=== PATIENT | female | born 1960 | race Caucasian/White ===

== ENCOUNTER 2019-05-23 08:14 | Outpatient (CLI) | payer MEDICARE, SELFPAY | END 2019-05-23 08:15 | disposition home or self-care (01) | LOC: ONCMED 08:22 | PROVIDERS: Family Provider Family Medicine; PCP Family Medicine; Visit Provider Internal Medicine Medical Oncology | DX: Z45.2 Encounter for adjustment and management of vascular access device (principal) | CPT/HCPCS: 96523 ==

== ENCOUNTER 2019-06-20 08:12 | Outpatient (CLI) | payer MEDICARE, SELFPAY | END 2019-06-20 08:13 | disposition home or self-care (01) | LOC: ONCMED 08:13 | PROVIDERS: Family Provider Family Medicine; PCP Family Medicine; Visit Provider Nurse Practitioner | DX: Z45.2 Encounter for adjustment and management of vascular access device (principal) | CPT/HCPCS: 96523 ==

== ENCOUNTER 2019-07-18 09:22 | Outpatient (CLI) | payer MEDICARE, SELFPAY | END 2019-07-18 09:23 | disposition home or self-care (01) | LOC: ONCMED 09:22 | PROVIDERS: Family Provider Family Medicine; PCP Family Medicine; Visit Provider Internal Medicine Medical Oncology | DX: Z45.2 Encounter for adjustment and management of vascular access device (principal) | CPT/HCPCS: 96523 ==

== ENCOUNTER 2019-08-15 09:43 | Outpatient (CLI) | payer MEDICARE, SELFPAY | END 2019-08-15 09:44 | disposition home or self-care (01) | LOC: ONCMED 09:43 | PROVIDERS: Family Provider Family Medicine; PCP Family Medicine; Visit Provider Internal Medicine Medical Oncology | DX: Z45.2 Encounter for adjustment and management of vascular access device (principal) | CPT/HCPCS: 96523 ==

== ENCOUNTER 2019-09-12 09:27 | Outpatient (CLI) | payer MEDICARE, SELFPAY | END 2019-09-12 09:28 | disposition home or self-care (01) | LOC: ONCMED 09:27 | PROVIDERS: Family Provider Family Medicine; PCP Family Medicine; Visit Provider Nurse Practitioner | DX: Z45.2 Encounter for adjustment and management of vascular access device (principal); C21.8 Malignant neoplasm of overlapping sites of rectum, anus and anal canal; C77.4 Secondary and unspecified malignant neoplasm of inguinal and lower limb lymph nodes; G89.3 Neoplasm related pain (acute) (chronic); D70.1 Agranulocytosis secondary to cancer chemotherapy; D64.9 Anemia, unspecified; Z79.899 Other long term (current) drug therapy | CPT/HCPCS: 96523 ==

== ENCOUNTER 2019-10-10 08:28 | Outpatient (CLI) | payer MEDICARE, SELFPAY | END 2019-10-10 08:29 | disposition home or self-care (01) | LOC: ONCMED 08:35 | PROVIDERS: PCP Family Medicine; Visit Provider Internal Medicine Medical Oncology | DX: Z45.2 Encounter for adjustment and management of vascular access device (principal); C21.8 Malignant neoplasm of overlapping sites of rectum, anus and anal canal; C77.4 Secondary and unspecified malignant neoplasm of inguinal and lower limb lymph nodes; D64.9 Anemia, unspecified; D70.1 Agranulocytosis secondary to cancer chemotherapy; T45.1X5A Adverse effect of antineoplastic and immunosuppressive drugs, initial encounter; G89.3 Neoplasm related pain (acute) (chronic); Z79.899 Other long term (current) drug therapy | CPT/HCPCS: 96523 ==

== ENCOUNTER 2019-11-14 08:27 | Outpatient (CLI) | payer MEDICARE, SELFPAY ==
[2019-11-14 09:35] LABS: Alanine Aminotransferase 24 U/L (0-33); Albumin Level 3.8 g/dL (3.5-5.2); Alkaline Phosphatase 79 IU/L (35-105); Aspartate Amino Transferase 29 U/L (0-32); Blood Urea Nitrogen 15 mg/dL (8-23); Calcium 8.4 mg/dL (8.5-10.5); Carbon Dioxide 25 mmol/L (22-29); Chloride 103 mmol/L (98-107); Free T4 Free Thyroxine 1.09 ng/dL (0.82-1.77); Globulin 2.3 g/dL (1.3-4.6); Glomerular Filtration Rate 63.7 mL/min (90-130); Glucose 87 mg/dL (65-115); Osmolality Calculated 278 mOsm/kg (285-295); Sodium 136 mmol/L (136-145); Thyroid Stimulating Hormone 4.33 uIU/mL (0.27-4.20); Total Bilirubin 0.4 mg/dL (0.15-1.2); Total Protein 6.1 g/dL (6.6-8.7)
[2019-11-14 10:18] LABS: Basophils % 0.4 %; Eosinophils # 0.2 10^3/uL (0.0-0.8); Hematocrit 37.7 % (37.0-47.0); Hemoglobin 12.5 g/dL (11.5-15.3); Lymphocytes # 1.6 10^3/uL (0.8-4.8); Lymphocytes % 32.5 %; Mean Corpuscular HGB Conc 33.2 g/dL (30.0-36.0); Mean Corpuscular Hemoglobin 31.6 pg (28.0-34.0); Mean Corpuscular Volume 95.2 fL (81-99); Monocytes # 0.4 10^3/uL (0.2-0.9); Monocytes % 7.5 %; Neutrophils # 2.8 10^3/uL (1.8-7.7); Neutrophils % 56.4 %; Nucleated Red Blood Cells % 0 %; Platelet Count 148 10^3/cmm (130-400); Red Blood Count 3.96 10^6/uL (4.1-5.3); Red Cell Distribution Width 12.8 % (12.1-15.1)
== END 2019-11-14 08:28 | disposition home or self-care (01) ==
LOC: ONCMED 08:30
PROVIDERS: PCP Family Medicine; Visit Provider Internal Medicine Medical Oncology
DX: E03.8 Other specified hypothyroidism (principal); C80.1 Malignant (primary) neoplasm, unspecified
CPT/HCPCS: 36591; 80053; 84439; 84443; 85025

== ENCOUNTER 2019-12-19 08:21 | Outpatient (CLI) | payer MEDICARE, SELFPAY | END 2019-12-19 08:22 | disposition home or self-care (01) | LOC: ONCMED 08:27 | PROVIDERS: PCP Family Medicine; Visit Provider Nurse Practitioner | DX: Z45.2 Encounter for adjustment and management of vascular access device (principal) | CPT/HCPCS: 96523 ==

== ENCOUNTER 2020-01-16 09:07 | Outpatient (CLI) | payer MEDICARE, SELFPAY | END 2020-01-16 09:08 | disposition home or self-care (01) | LOC: ONCMED 09:09 | PROVIDERS: PCP Family Medicine; Visit Provider Nurse Practitioner | DX: Z45.2 Encounter for adjustment and management of vascular access device (principal) | CPT/HCPCS: 96523 ==

== ENCOUNTER 2020-02-24 08:27 | Outpatient (CLI) | payer MEDICARE, SELFPAY ==
[2020-02-24 08:54] LABS: Basophils % 0.6 %; Eosinophils # 0.1 10^3/uL (0.0-0.8); Eosinophils % 1.4 %; Hematocrit 36.9 % (37.0-47.0); Hemoglobin 12.5 g/dL (11.5-15.3); Lymphocytes # 1.6 10^3/uL (0.8-4.8); Lymphocytes % 23.8 %; Mean Corpuscular HGB Conc 33.9 g/dL (30.0-36.0); Mean Corpuscular Hemoglobin 31.1 pg (28.0-34.0); Mean Corpuscular Volume 91.8 fL (81-99); Mean Platelet Volume 9.5 fL (7.4-10.4); Monocytes # 0.5 10^3/uL (0.2-0.9); Monocytes % 7.1 %; Neutrophils % 66.8 %; Nucleated Red Blood Cells % 0 %; Platelet Count 231 10^3/cmm (130-400); Red Blood Count 4.02 10^6/uL (4.1-5.3); Red Cell Distribution Width 12.2 % (12.1-15.1); White Blood Count 6.6 10^3/uL (4.0-10.0)
[2020-02-24 09:39] LABS: Alanine Aminotransferase 20 U/L (0-33); Albumin Level 3.6 g/dL (3.5-5.2); Alkaline Phosphatase 79 IU/L (35-105); Anion Gap 12.8 (5-19); Aspartate Amino Transferase 19 U/L (0-32); Blood Urea Nitrogen 17 mg/dL (8-23); Calcium 8.5 mg/dL (8.5-10.5); Carbon Dioxide 24 mmol/L (22-29); Chloride 101 mmol/L (98-107); Glomerular Filtration Rate 72.9 mL/min (90-130); Glucose 118 mg/dL (65-115); Osmolality Calculated 281 mOsm/kg (285-295); Potassium 3.8 mmol/L (3.5-5.1); Sodium 134 mmol/L (136-145); Total Bilirubin 0.4 mg/dL (0.15-1.2); Total Protein 6.6 g/dL (6.6-8.7)
== END 2020-02-24 08:28 | disposition home or self-care (01) ==
LOC: ONCMED 08:29
PROVIDERS: PCP Family Medicine; Visit Provider Internal Medicine Medical Oncology
DX: C80.1 Malignant (primary) neoplasm, unspecified (principal); E03.8 Other specified hypothyroidism
CPT/HCPCS: 36591; 80053; 84443; 85025

== ENCOUNTER 2020-03-17 10:13 | Outpatient (CLI) | payer MEDICARE, SELFPAY ==
--- NOTE | 2020-03-17 10:22 | XR_ITS ---
WS: [id number] PROCEDURE: XR chest 2V* [id number] CLINICAL INFORMATION: continued cough COMPARISON: 019 FINDINGS: Right central venous catheter with tip in the distal SVC. Heart: Normal cardiac silhouette. Lungs: Lungs are clear. No consolidation or pleural fluid. Moderate to advanced chronic emphysematous changes. Bones: Osteopenia. Mild thoracic kyphosis. XR/XR chest 2V* [id number] IMPRESSION: 1. Moderate to advanced chronic emphysematous changes. No acute pulmonary infi ltrates.
== END 2020-03-17 10:14 | disposition home or self-care (01) ==
LOC: RADWPI 10:17
PROVIDERS: PCP Family Medicine; Visit Provider Family Medicine
DX: R05 Cough (principal)
CPT/HCPCS: 71046

== ENCOUNTER → 2020-03-25 09:28 | Outpatient (BNVA) | payer MEDICARE, SELFPAY | PROVIDERS: PCP Family Medicine; Visit Provider Family Medicine | DX: Z11.59 Encounter for screening for other viral diseases (principal); C80.1 Malignant (primary) neoplasm, unspecified | CPT/HCPCS: 87635 ==

== ENCOUNTER 2020-03-29 06:52 | Day surgery (SDC) | payer MEDICARE, SELFPAY ==
[2020-03-26 12:47] VITALS: BMI 25.2
[2020-03-29] VITALS (7 sets, daily range): BP systolic 113–146; BP diastolic 53–77; PULSE 60–68; RESP 16–18; TEMP 36.1–36.5; O2SAT 98–100
--- NOTE | 2020-03-29 07:23 | W.PM.OPSUD ---
Surgery/Procedure H&P Update DATE OF PROCEDURE: March 29, 2020 DATE H&P PERFORMED: 03/22/20 H&P UPDATE INFORMATION: I have reviewed H&P completed within last 30 days, I have examined patient prior to procedure and No changes to prior documentation PREOP DIAGNOSIS: powerport removal PLANNED PROCEDURE: Operation Date: 03/29/20 08:40 Proposed Procedures p Portacath Removal 51971 C80.1(Not Applicable) - Miguel Santacruz MD
[2020-03-29] MEDS: lidocaine 1% INJ 20 mL IM (09:05)
--- NOTE | 2020-03-29 09:18 | PM.OP ---
Operative Report Date of procedure: March 29, 2020 Pre-op Diagnosis: powerport removal Post-op diagnosis: same Procedure Done: Removal of PowerPort from the right internal jugular vein Pathology: none sent Surgeon: Miguel Santacruz Anesthesia: Local Condition: stable Disposition: same day Procedure: Patient was taken to the operating room and her right chest was prepped and draped in a sterile manner. 20 mL of 1% lidocaine with 0.5% Marcaine was infiltrated around the MediPort and catheter in the right internal jugular vein. Using a 15 blade the previous incision was opened, the subcutaneous tissue was divided using electrocautery and MediPort along the catheter was dissected free from the surrounding subcutaneous tissue and removed entirely. The wound was irrigated with saline, hemostasis ensured with electrocautery and subcutaneous tissue was approximated using 3-0 Vicryl suture and skin was closed using running subcuticular 4-0 Monocryl suture and surgical glue. The patient was transferred to the recovery room in stable condition.
== END 2020-03-29 09:29 | disposition home or self-care (01) ==
PROVIDERS: PCP Family Medicine; Visit Provider Surgery
PROC: (CPT 36589; principal; 2020-03-29 08:40)
DX: Z45.2 Encounter for adjustment and management of vascular access device (principal); C80.1 Malignant (primary) neoplasm, unspecified; F32.9 Major depressive disorder, single episode, unspecified; F41.9 Anxiety disorder, unspecified
CPT/HCPCS: 36590; 12345; J3490

== ENCOUNTER 2020-04-30 08:26 | Outpatient (CLI) | payer MEDICARE, SELFPAY ==
--- NOTE | 2020-04-30 08:32 | MM_ITS ---
WS: [id number] BILATERAL DIGITAL SCREENING MAMMOGRAPHY WITH CAD CLINICAL INFORMATION: SCREENING HISTORY: Screening mammogram. No current complaints. COMPARISON: TECHNIQUE: Bilateral CC and MLO views. FINDINGS: Scattered fibroglandular densities bilaterally. No suspicious focal mass, asymmetry, calcifications, or architectural distortion. No evidence of malignancy. Vascular calcification MM/[place] [id number] IMPRESSION: BI-RADS: 2-Benign FOLLOW UP: 1 Year Follow-up Recommend return to annual screening mammography.
== END 2020-04-30 08:27 | disposition home or self-care (01) ==
LOC: RADSHAW 08:28
PROVIDERS: PCP Family Medicine; Visit Provider Family Medicine
DX: Z12.31 Encounter for screening mammogram for malignant neoplasm of breast (principal)
CPT/HCPCS: 77067

== ENCOUNTER → 2020-12-21 16:12 | Outpatient (BNVA) | payer MEDICARE, SELFPAY | PROVIDERS: PCP Family Medicine; Visit Provider Family Medicine | DX: E03.8 Other specified hypothyroidism (principal); C80.1 Malignant (primary) neoplasm, unspecified; R07.9 Chest pain, unspecified; F41.1 Generalized anxiety disorder; E28.39 Other primary ovarian failure | CPT/HCPCS: 80053; 84443; 84484; 85025 ==

== ENCOUNTER → 2021-04-27 11:01 | Outpatient (BNVA) | payer MEDICARE, SELFPAY | PROVIDERS: PCP Family Medicine; Visit Provider Family Medicine | DX: R05.3 Chronic cough (principal) | CPT/HCPCS: 71046 ==

== ENCOUNTER → 2021-05-05 11:14 | Outpatient (BNVA) | payer MEDICARE, SELFPAY | PROVIDERS: PCP Family Medicine; Visit Provider Family Medicine | DX: R32 Unspecified urinary incontinence (principal) | CPT/HCPCS: 81000 ==

== ENCOUNTER 2021-06-28 08:29 | Outpatient (CLI) | payer MEDICARE, SELFPAY ==
--- NOTE | 2021-06-28 08:49 | MM_ITS ---
WS: [id number] SCREENING DIGITAL MAMMOGRAM WITH CAD HISTORY: SCREENING COMPARISON: 04/30/2020, 12/07/2015 Bilateral CC and MLO views submitted. Computer aided detection analyzed. Breast composition: The breasts are heterogeneously dense, which may obscure small masses. Cluster of calcifications posterior and lateral to the LEFT nipple in the anterior breast. These calcifications were not present on the most recent study and are very difficult to visualize. There is an additiona l group of calcifications in the central LEFT breast which have been present for multiple years. Stab le calcifications in the RIGHT breast. MM/[place] [id number] IMPRESSION: BI-RADS: 0-Incomplete: Need additional imaging evaluation FOLLOW UP: Need Additional Imaging LEFT BREAST: Magnification views of suspicious calcification CC and MLO. Skyler Villavicencio
== END 2021-06-28 08:30 | disposition home or self-care (01) ==
PROVIDERS: PCP Family Medicine; Visit Provider Family Medicine
DX: Z12.31 Encounter for screening mammogram for malignant neoplasm of breast (principal)
CPT/HCPCS: 77067

== ENCOUNTER 2021-06-30 08:55 | Outpatient (CLI) | payer MEDICARE, SELFPAY ==
--- NOTE | 2021-06-30 09:00 | MM_ITS ---
WS: [id number] ADDITIONAL VIEWS LEFT MAMMOGRAM HISTORY: R92.8 - Other abnormal and inconclusive findings on screening mammogram. Follow-up calcifica tions. COMPARISON: 06/28/2021, 04/30/2020 and 12/07/2015 Magnification views LEFT breast in CC, MLO projections and true ML submitted. Very vague calcifications are identified within the anterior LEFT breast on a notification views. The re is no clustering of calcifications. There are only a few calcifications identified. Due to the dif ficulty visualizing these calcifications 6 month follow-up is recommended. These would be very diffic ult to biopsy and obtain adequate sampling at this time. No architectural distortion. MM/[place] [id number] IMPRESSION: BI-RADS: 3-Probably Benign FOLLOW UP: 6 Month Follow-up Recommend diagnostic LEFT mammogram in 6 months with magnification views of the calcifications.
== END 2021-06-30 08:56 | disposition home or self-care (01) ==
LOC: RADSHAW 08:56
PROVIDERS: PCP Family Medicine; Visit Provider Family Medicine
DX: R92.8 Other abnormal and inconclusive findings on diagnostic imaging of breast (principal); R92.1 Mammographic calcification found on diagnostic imaging of breast
CPT/HCPCS: 77065

== ENCOUNTER 2021-12-14 08:45 | Outpatient (CLI) | payer MEDICARE, SELFPAY ==
--- NOTE | 2021-12-14 08:59 | CT_ITS ---
WS: [id number] CT HEAD NONCONTRAST HISTORY: POLYNEUROPATHY DUE TO OTHER TOXIC AGENTS TECHNIQUE: Contiguous axial imaging performed through the brain in 2.5 mm imaging. Bone and soft tiss ue windows. Sagittal and coronal reformats reviewed. All CT scans at [facility] use at least one of these dose optimization techniques: automated exposure control; mA and/or kV adjustment per pa tient size (includes targeted exams where dose is matched to clinical indication); or iterative recon struction. DLP: 1062.48 mGy.cm COMPARISON: None available. No acute intracranial hemorrhage, midline shift or mass effect. Mild atrophy and small vessel ischemic disease. Remote lacunar infarct external capsule on the LEFT. Ventricles: Normal size with no hydrocephalus. No inferior displacement of cerebellar tonsils. Paranasal sinuses: As visualized are clear. Mastoid air cells: Well pneumatized. Calvarium and scalp: Skull is intact with no soft tissue edema or swelling. CT/CT head wo con* [id number] IMPRESSION: 1. Mild cerebral atrophy and small vessel ischemic disease. 2. Mild carotid atherosclerosis of the intracranial carotid arteries.
== END 2021-12-14 08:46 | disposition home or self-care (01) ==
PROVIDERS: PCP Electrodiagnostic Medicine; Visit Provider Electrodiagnostic Medicine
DX: G62.2 Polyneuropathy due to other toxic agents (principal); G31.9 Degenerative disease of nervous system, unspecified; I67.82 Cerebral ischemia; I65.23 Occlusion and stenosis of bilateral carotid arteries; I63.81 Other cerebral infarction due to occlusion or stenosis of small artery
CPT/HCPCS: 70450

== ENCOUNTER 2021-12-16 07:43 | Outpatient (CLI) | payer MEDICARE, SELFPAY ==
--- NOTE | 2021-12-16 07:54 | MM_ITS ---
WS: [id number] DIAGNOSTIC LEFT DIGITAL BREAST TOMOSYNTHESIS MAMMOGRAPHY WITH CAD. HISTORY: Six-month follow-up LEFT breast calcifications. COMPARISON: 06/30/2021 and 06/28/199910/07 and 04/30/2020 Technique: CC, MLO and ML views. Magnification views CC and MLO. Breast composition: There are scattered areas of fibroglandular density. Magnification views redemon strate the calcifications in the anterior breast but these are very benign in appearance and difficul t to visualize. The calcifications present appear benign. These will be reevaluated on the annual [facility] mogram. MM/[place] [id number] IMPRESSION: BI-RADS: 3-Probably Benign FOLLOW UP: 6 Month Follow-up Patient to return for annual mammogram in 6 months and these calcifications belén l be reevaluated at that time. No interval adverse change.
== END 2021-12-16 07:44 | disposition home or self-care (01) ==
LOC: RAD 07:44
PROVIDERS: PCP Electrodiagnostic Medicine; Visit Provider Electrodiagnostic Medicine
DX: R92.1 Mammographic calcification found on diagnostic imaging of breast (principal)
CPT/HCPCS: 77061

== ENCOUNTER → 2022-02-14 08:46 | Outpatient (BNVA) | payer MEDICARE, SELFPAY | PROVIDERS: PCP Electrodiagnostic Medicine; Visit Provider Orthopaedic Surgery | DX: M48.062 Spinal stenosis, lumbar region with neurogenic claudication (principal); Z85.00 Personal history of malignant neoplasm of unspecified digestive organ; Z87.891 Personal history of nicotine dependence | CPT/HCPCS: 72110; 99203; 99204 ==

== ENCOUNTER 2022-02-22 22:24 | Outpatient (RCR) | payer MEDICARE, SELFPAY | END 2022-03-20 23:59 | disposition home or self-care (01) | LOC: SPT 22:24 | PROVIDERS: PCP Electrodiagnostic Medicine; Visit Provider Orthopaedic Surgery | DX: M48.062 Spinal stenosis, lumbar region with neurogenic claudication (principal) | CPT/HCPCS: 97110; 97162 ==

== ENCOUNTER 2022-03-29 09:09 | Outpatient (CLI) | payer MEDICARE, SELFPAY ==
--- NOTE | 2022-03-29 09:30 | MR_ITS ---
WS: [id number] MRI LUMBAR SPINE NONCONTRAST TECHNIQUE: Sagittal T1, T2 and STIR imaging. Axial T1 and T2 imaging. CLINICAL INFORMATION: lower back pain COMPARISON: None. FINDINGS: Mild lumbar curve. No acute compression. No high-grade central canal stenosis. Disc space narrowing w ith endplate degenerative changes L5-S1. Edema involving the bilateral sacral ala partially visualize d likely due to sacral insufficiency fractures. This can be further evaluated with MRI of the sacrum. Small amount of presacral soft tissue edema. L1-L2: Normal. L2-L3: Slight retrolisthesis. Mild annular bulging with slight narrowing of the LEFT subarticular rec ess. Slight impingement traversing LEFT L3 nerve root. Mild facet arthropathy. Mild RIGHT foraminal n arrowing. L3-L4: Mild annular bulging. Slight impingement on the LEFT subarticular recess and traversing LEFT L 4 nerve root. Moderate facet arthropathy. LEFT foraminal protrusion impinges the exiting L3 nerve antonia t with moderate LEFT foraminal narrowing. Mild RIGHT foraminal narrowing. Mild central canal stenosis . L4-L5: Mild annular bulging with mild central canal stenosis. Impingement on the traversing LEFT grea ter than RIGHT L5 nerve roots. Moderate to advanced facet arthropathy. LEFT eccentric disc bulging wi th mild LEFT greater than RIGHT foraminal narrowing. L5-S1: Mild annular bulging with slight effacement of ventral thecal sac. Slight impingement LEFT S1 nerve root. Moderate facet arthropathy. LEFT eccentric disc bulging contacts the far exiting LEFT L5 nerve root. RIGHT foramen is patent. Tiny disc protrusion at C5-C6 seen on the school bus driver/mechanic imaging. A few incidental hemangiomas in the thoracic spine. MR/MR lumbar spine wo con* [id number] IMPRESSION: 1. Mild lumbar curve. No acute compression. 2. Patchy signal abnormality L5-S1 vertebral bodies with edema eccentric to th e RIGHT likely degenerative. No signal abnormality in the disc space. Disc dayron ccation. 3. Diffuse edema involving the sacral ala bilaterally suspicious for sacral in sufficiency fractures. This is only partially visualized. Superimposed metastat ic disease not entirely excluded. Recommend further evaluation with MRI of the sacrum. Insufficiency fracture lines partially visualized on the axial imaging 4. Associated presacral edema. 5. Mild central canal stenosis L3-L4 and L4-L5 with impingement on the amanda ing LEFT L4 and LEFT L5 nerve roots respectively in the subarticular recess. 6. Slight impingement traversing LEFT S1 nerve root. 7. Slight narrowing of the LEFT L2-L3 subarticular recess. 8. LEFT foraminal protrusion impinges the exiting L3 nerve root with moderate LEFT foraaaminal narrowing. 9. Mild LEFT L4-L5 and LEFT L5-S1 foraminal narrowing. 10. Moderate to advanced facet arthropathy L3-L5.
== END 2022-03-29 09:10 | disposition home or self-care (01) ==
PROVIDERS: PCP Electrodiagnostic Medicine; Visit Provider Orthopaedic Surgery
DX: M48.061 Spinal stenosis, lumbar region without neurogenic claudication (principal); M51.26 Other intervertebral disc displacement, lumbar region; M47.816 Spondylosis without myelopathy or radiculopathy, lumbar region
CPT/HCPCS: 72148

== ENCOUNTER 2022-04-06 08:36 | Outpatient (CLI) | payer MEDICARE, SELFPAY ==
--- NOTE | 2022-04-06 08:49 | MR_ITS ---
WS: [id number] MRI BRAIN WITH AND WITHOUT CONTRAST HISTORY: SYNCOPE COMPARISON: 09/11/2018 TECHNIQUE: Multiplanar imaging performed through the brain with MultiHance 16 ml's IV. No acute infarcts are seen. Niño-white matter differentiation is well preserved. There is minimal sma ll vessel ischemic type changes. No prior infarct. Mild atrophy. No susceptibility artifacts or prior lacunar infarcts. Ventricles and extra-axial spaces are normal. Clivus and pituitary gland are normal. Visualized posterior fossa and brainstem are also normal. Postcontrast images are negative for masses or vascular malformations. Dural venous sinuses are normal. Paranasal sinuses: Well aerated with no significant disease. Mastoid air cells: Normal. Calvarium and scalp: Normal. MR/MR head wo/w con [id number] IMPRESSION: 1. No metastatic disease to the brain. 2. No acute infarct. 3. Mild atrophy and mild small vessel ischemic disease. Similar to the prior s hero from 09/11/2018
[2022-04-06] MEDS: gadobenate dimeglumine 20 mL vial IV (09:08)
== END 2022-04-06 08:37 | disposition home or self-care (01) ==
LOC: RAD 08:39
PROVIDERS: PCP Electrodiagnostic Medicine; Visit Provider Electrodiagnostic Medicine
DX: R55 Syncope and collapse (principal); G31.9 Degenerative disease of nervous system, unspecified
CPT/HCPCS: 70553; A9577

== ENCOUNTER → 2022-04-11 07:57 | Outpatient (BNVA) | payer MEDICARE, SELFPAY | PROVIDERS: PCP Electrodiagnostic Medicine; Visit Provider Orthopaedic Surgery | DX: M48.062 Spinal stenosis, lumbar region with neurogenic claudication (principal) | CPT/HCPCS: 99214 ==

== ENCOUNTER 2022-04-25 16:21 | Outpatient (CLI) | payer MEDICARE, SELFPAY ==
--- NOTE | 2022-04-25 16:45 | MR_ITS ---
WS: [email or web address] MRI OF THE SACRUM WITHOUT GADOLINIUM ENHANCEMENT. INDICATION: Chronic low back pain TECHNIQUE: Coronal T1, coronal STIR, axial T2, and sagittal T2 imaging with fat saturation technique. FINDINGS: Comparison March 29, 2022 Diffuse bone marrow edema throughout the sacral ala bilaterally also involving the adjacent ilium. Ad ditional bone marrow signal abnormality involves the pubic rami and acetabulum. Small area of avascu lar necrosis involving the RIGHT femoral head. Additional area of signal abnormality involving the L5 -S1 vertebral body likely degenerative. Small insufficiency fractures are visualized in the sacrum compatible with acute sacral insufficiency fractures. Associated presacral edema. Edema extending into the ilium bilaterally likely reactive. N o fluid in the SI joints. Patchy signal abnormality involving the pubic rami and acetabulum nonspecif ic may be due to prior treatment-related changes/radiation, bony infarcts, or stress reaction. Metast atic disease not excluded. Bone scan could be utilized for additional evaluation of the bony structur MR/MR sacrum wo con* [id number] IMPRESSION: 1. Diffuse edema in the bilateral sacral ala with visualized fracture lines co mpatible with sacral insufficiency fractures. 2. Additional edema extends into the ilium bilaterally likely reactive in a sy mmetric fashion. 3. Patchy areas of edema extends into the pubic rami and acetabulum bilaterall y in a symmetric fashion is nonspecific but may be related to prior treatment-r elated changes/radiation such as bony infarcts or stress reaction. Metastatic d isease not entirely excluded but felt to be less likely and bone scan may be he lpful. 4. 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 5. Edema in the L5-S1 vertebral body most likely degenerative.
== END 2022-04-25 16:22 | disposition home or self-care (01) ==
PROVIDERS: PCP Electrodiagnostic Medicine; Visit Provider Orthopaedic Surgery
DX: M48.062 Spinal stenosis, lumbar region with neurogenic claudication (principal); M54.50 Low back pain, unspecified; R60.0 Localized edema
CPT/HCPCS: 72148

== ENCOUNTER → 2022-04-27 14:44 | Outpatient (BNVA) | payer MEDICARE, SELFPAY | PROVIDERS: PCP Electrodiagnostic Medicine; Visit Provider Orthopaedic Surgery | DX: M48.062 Spinal stenosis, lumbar region with neurogenic claudication (principal) | CPT/HCPCS: 99214 ==

== ENCOUNTER 2022-04-28 11:21 | Day surgery (SDC) | payer MEDICARE, SELFPAY ==
[2022-04-21 08:31] VITALS: BMI 26.6
--- NOTE | 2022-04-21 08:43 | ANES.PREANE2 ---
Pre-Anesthetic Assessment Height/Weight: Height 1.68 m Weight 74.843 kg Preop Diagnosis: powerport removal Operation Date: 04/28/22 11:55 Proposed Procedures p Lumbar Spine Decompression L4/5 10985/M48.062(Bilateral) - Ted Darling, Familial anesthetic complications: None Social No alcohol and No tobacco Exam alert, oriented x 3, clear to auscultation bilaterally and regular rate & rhythm Airway Mallampati: Class I Dentition: false Pulmonary None reported CV/HEM None reported None reported Hepatic None reported GI Gastroesophageal Reflux Disease Metabolic Thyroid Disease Anesthetic Plan ASA status: 3 Anesthesia: General Risk of > 500 ml blood loss (7ml/kg in children): No Medications/Allergies Home Medications Medication Instructions Recorded Confirmed Last Taken Type albuterol sulfate 90 mcg/actuation 2 puff inhalation Q6H PRN 11/20/19 04/21/22 03/28/20 Rx aerosol inhaler (ProAir HFA) shortness of breath or wheezing 30 days #18 grams estradiol 1 mg tablet 1 mg PO TID 90 days #270 tabs 03/01/21 04/21/22 04/20/22 Rx lorazepam 1 mg tablet 1 mg PO TID PRN anxiety 30 days 03/21/21 04/21/22 Unknown Rx #90 tabs lactulose 10 gram/15 mL (15 mL) 20 g (30 mL) PO BID PRN 03/25/21 04/21/22 Unknown Rx oral solution constipation #600 mL pantoprazole 40 mg tablet,delayed See Rx Instructions .Route 03/28/21 04/21/22 04/20/22 Rx release .COMPLEX #90 tabs fluticasone propionate 50 See Rx Instructions .Route 06/14/21 04/21/22 Unknown Rx mcg/actuation nasal .COMPLEX #16 grams spray,suspension zolpidem 10 mg tablet 10 mg PO DAILY 06/17/21 04/21/22 04/20/22 History sertraline 100 mg tablet (Zoloft) 100 mg PO DAILY 04/21/22 04/21/22 04/20/22 History Allergies Allergy/AdvReac Type Severity Reaction Status Date / Time cisplatin Allergy itching Verified 04/14/22 18:42 ketorolac [From Toradol] Allergy ADR-Anxiety Verified 04/14/22 18:42 [facility] Anesthesia Medical History Depression Generalized anxiety disorder GERD without esophagitis Glossitis History of cancer of vagina History of colon cancer History of small bowel obstruction Hypoestrogenism Hypothalamic hypothyroidism Insomnia disorder 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 Rectal cancer Surgical History Colostomy in place H/O hernia repair parastomal History of hysterectomy complete--1993 History of rectal surgery APR, with pelvic exenteration for recurrence with rectus flap History of removal of Port-a-Cath (03/29/20) History of surgery on left wrist carpel tunnel along with trigger finger and trigger thumb Port-A-Cath in place Family History Grandmother Breast cancer Maternal-breast Father Cancer prostate that spread to bones Sister Cancer brain cancer and lung Mother Chronic kidney disease (CKD) Diabetes Brother Cancer liver Diabetes Grandfather Cancer Maternal--prostate and lung Denies family history of CAD (coronary artery disease) Clotting disorder Hyperlipidemia Bleeding disorder Hypertension Stroke Social History Smoking and tobacco status: former smoker Alcohol intake: current Alcohol intake frequency: holidays/special occasions only Household members: spouse Marital status: Current occupational status: disabled History of recent travel: No Data Anesthesia Cardiac Studies: No Data to Display
--- NOTE | 2022-04-21 13:33 | SUR.PREOP ---
Pre-operative appointment Patient given Chlora-prep and soap with instructions on use. Patient verbalized understanding.
[2022-04-28] VITALS (10 sets, daily range): BP systolic 126–170; BP diastolic 48–108; PULSE 75–98; RESP 16–18; TEMP 36.2–36.8; O2SAT 94–99
--- NOTE | 2022-04-28 | XR_ITS ---
WS: [email or web address] Lumbar spine, C-arm fluoroscopy, 04/28/2022 Clinical Data: L4-5 decompression Comparison: None. Findings: Dr. Darling performed a lumbar decompression. XR/XR lumbar spine 1V 12520 Impression: Lumbar decompression.
[2022-04-28] MEDS: sodium chloride 0.9% 1,000 ML 30 ML IV (11:51)
[2022-04-28] MEDS: HYDROmorphone 1 mg/mL INJ 1 mL 0.5 MG IVP ×2 (12:08→14:29)
--- NOTE | 2022-04-28 12:24 | W.PM.OPSUD ---
Surgery/Procedure H&P Update DATE OF PROCEDURE: April 28, 2022 DATE H&P PERFORMED: 04/28/22 H&P UPDATE INFORMATION: I have reviewed H&P completed within last 30 days, I have examined patient prior to procedure and No changes to prior documentation PREOP DIAGNOSIS: Lumbar stenosis with neurogenic claudication PLANNED PROCEDURE: Operation Date: 04/28/22 12:50 Proposed Procedures p Lumbar Spine Decompression L4/5 61449/M48.062(Bilateral) - Ted Darling DO
[2022-04-28] MEDS: ceFAZolin 2,000 MG in sodium chloride 0.9% (plus) 50 ML 100 MG IV (12:35)
--- NOTE | 2022-04-28 12:46 | P.ANESUD_ITS ---
Pre-Anesthetic Update Pre-Anesthetic Assessment: Date of Surgery/Procedure: 04/28/22 Preop Kelly gnosis: Lumbar stenosis with neurogenic claudication Proposed Procedure: Operation Date: 04/28/22 12:50 Proposed Procedures p Lumbar Spine Decompression L4/5 54303/M48.062(Bilateral) - Ted Darling, DO Any changes to Pre-Anesthetic Assessment?: No Last Intake: Intake Last Liquid Date 04/28/22 Last Liquid Time 20:00 Last Solid Date 04/27/22 Last Solid Time 16:00 Vitals: Temperature 98 F 04/28/22 11:24 Temperature Source Temporal Artery S can 04/28/22 11:24 Pulse Rate 75 04/28/22 11:24 Pulse Rhythm 04/28/22 11:38 Pulse Strength 3+ Normal 04/28/22 11:38 Respiratory Rate 16 04/28/22 12:08 Respiratory Effort Non-Labored 04/28/22 12:08 Respiratory Depth Normal 04/28/22 12:08 Respiratory Patter n 04/28/22 12:08 Blood Pressure 137/65 04/28/22 11:24 Blood Pressure Patricia n 89 04/28/22 11:24 Pulse Oximetry 97 04/28/22 12:08 Oxygen Delivery Me thod 04/28/22 11:38 Exam: Pre-Anes Outpt Exam: alert, oriented x 3, clear to auscultation bilaterally and regular rate & rhythm Cardiac Studies: No Data to Display
--- NOTE | 2022-04-28 13:51 | PM.OP ---
Operative Report Date of procedure: April 28, 2022 Pre-op diagnosis: Preop Diagnosis Lumbar stenosis with neurogenic claudication Post-op diagnosis: same Procedure done: 1. L4-5 laminectomy with partial facetectomies Surgeon: Ted Darling Wood Room Supervisor: Mason Coleman Wood Room Supervisor: The surgical physician assistant, BARBARA Barron was needed for his expertise under the microscope. He was important and necessary throughout the procedure to complete in a safe and timely manner. He assisted with patient positioning prepping and draping tissue retraction suctioning of the operative field protection of the dural sac and tissue closure Estimated blood loss (mL): 5 Procedure: 1. L4-5 laminectomy with partial facetectomies Patient is brought to the operative suite. After undergoing anesthesia they are placed in the prone position. All areas of impingement are well padded. Patient is then prepped and draped in the normal sterile fashion. A skin incision is made over the L4/5 level. This is confirmed under c-arm guidance. A series of dilators are passed and the tubular retractor is docked on the L4 lamina. A bovie is used to clear the soft tissue off the lamina and the L 4/5 facet joint. A high speed karel is then used to perform the laminectomy and take down the medial aspect of the L 4/5 facet joint. A kerrison rongeure was then used to take down the remaining lamina and smooth the edged of the laminectomy up to the point where the ligamentum flavum attaches. Attention was then brought to the medial aspect of the facet joint. The remaining medial aspect of the superior and inferior aspect of the facet joint were taken down with the kerrison from the pedicle of L4 to L 5. The facet joint had significant hypertrophy. Attention was then brought to the Ligamentum Flavum. The ligament was taken down from the lamina of L4 to L5 and out medially to the remaining facet joint. The ligament was thick. The dura was then exposed. The dura was in good repair. The L4 nerve was then traced with a curette out the L4/5 foramen and found to be adequately decompressed. The L5 nerve was traced with a curette around the L5 pedicle. The lateral recess was opened with a kerrison helping to further decompress the L5 nerve. The tubular retractor was then tilted to the contralateral side. The bovie was used to take down the soft tissue on the spinous process. The high speed karel was used to take down the spinous process and then the contralateral lamina of L4. The kerrison rongeur was used to take down the remaining lamina to the point where the ligamentum flavum attached and the ligamentum flavum was taken down from L4 to L5. The kerrison rongeur was then used to reach across and take down the medial aspect of the contralateral L4/5 facet joint.The currete was used to trace the contralateral L4 nerve out the L4/5 foramen to make sure it was decompressed adequatesly and the L5 was traced around the L5 pedicle. The lateral recess was opened further with the kerrison to ensure the L5 is adequately decompressed. Wound is then irrigated copiously with saline and surgiflo is used to stop any bleeding. The tubular retractor is removed and the wound is closed with vicryl and monocryl suture. Glue is then used to protect the wound. A sterile dressing is then placed. Patient was then placed in the supine position and transferred to the PACU in stable condition.
[2022-04-28] MEDS: fentaNYL 50 mcg/mL INJ 2mL IVP (14:00)
[2022-04-28] MEDS: HYDROcodone-acetaminophen 5-325 mg Tablet 2 TAB PO (14:50)
--- NOTE | 2022-04-28 15:35 | ANE.PACU2 ---
Inpatient post-anesthesia follow up: Airway intact: Yes Vital signs: Temperature 98.3 F Pulse Rate 78 Respiratory Rate 18 Blood Pressure 126/66 Pulse Oximetry 94 Oxygen Delivery Me thod Room Air Oxygen Flow Rate 6 Fraction of Inspir ed Oxygen Hydration adequate: Yes Nausea and vomiting: No Pain level: 3 Mental status: Baseline
== END 2022-04-28 15:21 | disposition home or self-care (01) ==
PROVIDERS: PCP Electrodiagnostic Medicine; Visit Provider Orthopaedic Surgery
PROC: (CPT 63005; principal; 2022-04-28 12:40)
DX: M48.062 Spinal stenosis, lumbar region with neurogenic claudication (principal)
CPT/HCPCS: 63047; 72020; 76000; J0690; J1100; J1170; J2405; J2704; J2710; J3010; J3490; J7030

== ENCOUNTER → 2022-05-16 09:04 | Outpatient (BNVA) | payer MEDICARE, SELFPAY | PROVIDERS: PCP Electrodiagnostic Medicine; Visit Provider Orthopaedic Surgery | DX: Z47.89 Encounter for other orthopedic aftercare (principal) | CPT/HCPCS: 99024 ==

== ENCOUNTER → 2022-06-13 08:35 | Outpatient (BNVA) | payer MEDICARE, SELFPAY | PROVIDERS: PCP Electrodiagnostic Medicine; Visit Provider Orthopaedic Surgery | DX: Z47.89 Encounter for other orthopedic aftercare (principal) | CPT/HCPCS: 99024 ==

== ENCOUNTER → 2022-07-25 08:44 | Outpatient (BNVA) | payer MEDICARE, SELFPAY | PROVIDERS: PCP Electrodiagnostic Medicine; Visit Provider Orthopaedic Surgery | DX: Z47.89 Encounter for other orthopedic aftercare (principal) | CPT/HCPCS: 99024 ==

== ENCOUNTER 2022-08-08 06:00 | Outpatient (RCR) | payer MEDICARE, SELFPAY | END 2022-08-18 23:59 | disposition home or self-care (01) | LOC: SPT 06:00 | PROVIDERS: PCP Electrodiagnostic Medicine; Visit Provider Electrodiagnostic Medicine | DX: M25.552 Pain in left hip (principal) | CPT/HCPCS: 97110; 97162 ==

== ENCOUNTER 2022-08-10 16:35 | Emergency (ER) | payer MEDICARE, SELFPAY ==
[2022-08-10 16:50] VITALS: BP 169/76; PULSE 79; RESP 15; TEMP 36.9; O2SAT 99; BMI 26.6
--- NOTE | 2022-08-10 17:17 | XRR_ITS ---
PROCEDURE INFORMATION: Exam: XR Left Hip Exam date and time: 08/10/2022 5:32 PM Age: 61 years old Clinical indication: Injury or trauma; Fall; Blunt trauma (contusions or hematomas); Left; Hip; Additional info: Left hip pain after fall TECHNIQUE: Imaging protocol: Radiologic exam of the left hip. Views: 2 or 3 views hip with pelvis when performed. COMPARISON: CR XR hip LT 2-3V wo/w pel* [id number] 05/26/2022 10:12 AM FINDINGS: Bones/joints: No acute fracture or dislocation. Degenerative changes of the included lower lumbar spine and SI joints noted. Soft tissues: Ventral hernia mesh repair clips noted. XR/XR hip LT 2-3V wo/w pel* [id number] IMPRESSION: No acute injury.
--- NOTE | 2022-08-10 17:17 | XRR_ITS ---
PROCEDURE INFORMATION: Exam: XR Right Knee Exam date and time: 08/10/2022 5:32 PM Age: 61 years old Clinical indication: Injury or trauma; Fall; Blunt trauma; Knee; Right; Prior surgery; Surgery date: 6+ months; Additional info: Right knee pain TECHNIQUE: Imaging protocol: Radiologic exam of the right knee. Views: 3 views. COMPARISON: No relevant prior studies available. FINDINGS: Bones/joints: No fracture or dislocation. Small joint effusion noted. Soft tissues: Normal. XR/XR knee RT 3V* [id number] IMPRESSION: No acute injury.
--- NOTE | 2022-08-10 18:24 | USR_ITS ---
PROCEDURE INFORMATION: Exam: US Duplex Right Lower Extremity Veins, Limited Exam date and time: 08/10/2022 6:48 PM Age: 61 years old Clinical indication: Pain; Leg, lower; Right; Additional info: Swelling and pain behind right knee x1 month TECHNIQUE: Imaging protocol: Real-time duplex ultrasound of the right extremity with 2-D salinas scale, color Doppler flow and spectral waveform analysis including responses to compression and other maneuvers (when performed) with image documentation. Limited exam was focused on the right lower extremity veins. COMPARISON: XR RIGHT KNEE 08/10/2022 5:32 PM FINDINGS: Right deep veins: The common femoral, femoral, proximal profunda femoral and popliteal veins are patent without thrombus. Normal Doppler waveforms. Normal compressibility and/or augmentation response. Right superficial veins: Saphenofemoral junction is patent without thrombus. Soft tissues: No acute soft tissue abnormality. US/[place] [id number] IMPRESSION: No evidence of deep vein thrombosis.
--- NOTE | 2022-08-10 20:22 | W.ED.FALL ---
HPI - Fall General: Chief Complaint: Fall Stated Complaint: Fall, Left hip pain and right knee pain Time Seen by Provider: 08/10/22 18:06 History of Present Illness: Patient is in today for left hip and right knee pain. She reports that her right knee has been swollen and painful for approximately 1 month. She has seen her primary care provider for this and has had steroid injection which did not help. She denies any initial injury of the knee. She reports that it hurts mostly bright behind the knee. She states that today she was walking and her knee gave out causing her to fall and hurt her left hip. She denies hitting her head or having any loss of consciousness. Associated symptoms-after fall: Denies abdominal pain, chest pain, headache(s), lightheadedness or neck pain Review of Systems Const: Denies: fever(s), chills or body aches Eyes: Denies: change in vision or blurry vision ENMT: Denies: throat pain Card: Denies: chest pain, palpitations, irregular heart rhythm, lightheadedness or syncope Resp: Denies: dyspnea, productive cough or non-productive cough GI: Denies: abdominal pain, nausea or vomiting : Denies: flank pain, difficulty voiding, dysuria, urinary frequency, urinary urgency or urinary hesitancy Musc: Reports: extremity pain, joint pain and joint swelling; Denies: neck pain or back pain Neuro: Denies: headache(s), numbness in extremities or weakness in extremities PFSH ED PFSH: Medical History Depression Generalized anxiety disorder GERD without esophagitis Glossitis History of cancer of vagina History of colon cancer History of small bowel obstruction Hypoestrogenism Hypothalamic hypothyroidism Insomnia disorder 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 Rectal cancer Surgical History Colostomy in place H/O hernia repair parastomal History of hysterectomy complete--1993 History of rectal surgery APR, with pelvic exenteration for recurrence with rectus flap History of removal of Port-a-Cath (03/29/20) History of surgery on left wrist carpel tunnel along with trigger finger and trigger thumb Port-A-Cath in place Family History Grandmother Breast cancer Maternal-breast Father Cancer prostate that spread to bones Sister Cancer brain cancer and lung Mother Chronic kidney disease (CKD) Diabetes Brother Cancer liver Diabetes Grandfather Cancer Maternal--prostate and lung Denies family history of CAD (coronary artery disease) Clotting disorder Hyperlipidemia Bleeding disorder Hypertension Stroke Social History Smoking and tobacco status: former smoker Alcohol intake: current Alcohol intake frequency: holidays/special occasions only Household members: spouse Marital status: Current occupational status: disabled Physical Exam Const: COMMON NORMALS: no acute distress, patient oriented x3 and alert GENERAL APPEARANCE: cooperative ORIENTATION/CONSCIOUSNESS: Yes awake, Yes oriented to person, Yes oriented to place and Yes oriented to time Resp: COMMON NORMALS: normal respiratory effort, No retractions, No use of accessory muscles and clear to auscultation bilaterally EFFORT & INSPECTION: Yes symmetric chest movement AUSCULTATION: clear to auscultation bilaterally Cardio: COMMON NORMALS: regular rate, regular rhythm, S1 normal heart sound present and S2 normal heart sound present RATE: regular rate RHYTHM: regular rhythm HEART SOUNDS: S1 normal heart sound present and S2 normal heart sound present Extremity: NARRATIVE EXTREMITY EXAM: Patient's right knee is generally swollen. There is no erythema. There is tender to palpation generally over the knee but worse in the popliteal region. Patient has guarding tenderness to the popliteal of the right knee. No erythema or warmth appreciated. Minimal tenderness to the right posterior calf just distal to the popliteal space. Tenderness to palpation left lateral hip. No obvious bony or soft tissue deformity appreciated. Neuro: COMMON NORMALS: patient oriented x3 SENSORIUM/ORIENTATION: Yes alert, Yes oriented to person, Yes oriented to place and Yes oriented to time Psych: COMMON NORMALS: cooperative Course Vital Signs: Vital signs: Vital Signs Temperature 98.5 F 08/10/22 16:50 Pulse Rate 79 08/10/22 16:50 Respiratory Rate 15 08/10/22 16:50 Blood Pressure 169/76 08/10/22 16:50 Pulse Oximetry 99 08/10/22 16:50 Oxygen Delivery Me thod 08/10/22 16:50 MDM - Fall Medical Decision Making Patient is in today for acute on chronic knee pain with acute left hip pain status post fall. Patient has had swelling of her right knee for 1 month not responsive to steroids. She has exquisite tenderness to the popliteal region of the right knee. No erythema or warmth is appreciated. X-rays of the hip and the right knee do not show any acute bony abnormality or deformity. I ordered an ultrasound of the right lower extremity to evaluate for DVT given the exquisite tenderness she has in the popliteal region. Patient completed the ultrasound and opted to leave before results stating that she thinks the ultrasound was normal. I have not seen preliminary results or images from the ultrasound at this point and advised that I could not tell her that it was negative at this time. Patient still wishes to leave at this time. I encouraged her to follow-up with the results tomorrow to make sure that she does in fact get the results. I encouraged her to do conservative treatments at home for swelling of the knee also for contusion of the left hip. Follow-up with primary care provider. Return to the ER as needed for any new or worsening symptoms. Lab Data Radiology Impressions Hip/Pelvis X-Ray 08/10/22 17:17 IMPRESSION: No acute injury. Knee X-Ray 08/10/22 17:17 IMPRESSION: No acute injury. Discharge Plan Discharge Patient Disposition: Home Clinical Impression: Contusion of left hip, Pain and swelling of right knee, Fall Condition: Stable Prescriptions: No Action zolpidem 10 mg tablet 10 mg PO DAILY pregabalin [Lyrica] 150 cap PO AC albuterol sulfate [ProAir HFA] 90 mcg/actuation HFA aerosol inhaler 2 puff INHALATION Q6H PRN (Reason: shortness of breath or wheezing) 30 Days Qty: 18 5RF estradiol 1 mg tablet 1 mg PO TID 90 Days Qty: 270 1RF lorazepam 1 mg tablet 1 mg PO TID PRN (Reason: anxiety) 30 Days Qty: 90 2RF lactulose 10 gram/15 mL (15 mL) solution 20 g PO BID PRN (Reason: constipation) Qty: 600 2RF pantoprazole 40 mg tablet,delayed release (DR/EC) See Rx Instructions .ROUTE .COMPLEX Qty: 90 1RF Dose Instruction: Take 1 tablet by mouth once daily Rx Instructions: Take 1 tablet by mouth once daily fluticasone propionate 50 mcg/actuation spray,suspension See Rx Instructions .ROUTE .COMPLEX Qty: 16 4RF Dose Instruction: Use 1 spray(s) in each nostril once daily Rx Instructions: Use 1 spray(s) in each nostril once daily hydrocodone-acetaminophen 5-325 mg tablet 1 - 2 tab PO .Q4-6H PRN (Reason: pain) 7 Days Qty: 40 0RF sertraline [Zoloft] 100 mg Tablet 100 mg PO DAILY Discharge Orders: Discharge ED (Routine); Ordered 08/10/22 Ordered By: Adriane Partida Referrals: Harpreet Kent DO [Primary Care Provider] - Discharge Diet: Usual diet Discharge Activity: Increase activity as tolerated Patient Instructions: Knee Pain (ED) Activity Restrictions/Additional Instructions: I have not seen the results of your ultrasound so I cannot rule out a blood clot at this time. I recommend that you call and get your results tomorrow if you are going to go ahead and leave before they are resulted tonight. X-rays did not show any bony deformities or fractures. I recommend conservative treatment including ice, rest, elevation. Follow-up with your primary care provider. Return to the ER as needed for new or worsening symptoms. Coding Level of Care Code ED [employer] for [employer]
== END 2022-08-10 20:26 | disposition home or self-care (01) ==
PROVIDERS: Emergency Provider Nurse Practitioner Family; PCP Electrodiagnostic Medicine
DX: S70.02XA Contusion of left hip, initial encounter (principal); M25.561 Pain in right knee; M79.89 Other specified soft tissue disorders; Z87.891 Personal history of nicotine dependence; Z85.038 Personal history of other malignant neoplasm of large intestine; Z85.44 Personal history of malignant neoplasm of other female genital organs; Z85.048 Personal history of other malignant neoplasm of rectum, rectosigmoid junction, and anus; W18.39XA Other fall on same level, initial encounter
CPT/HCPCS: 73502; 73562; 93971; 99284

== ENCOUNTER 2022-08-19 06:00 | Outpatient (RCR) | payer MEDICARE, SELFPAY | END 2022-09-17 23:59 | disposition home or self-care (01) | LOC: SPT 06:00 | PROVIDERS: PCP Electrodiagnostic Medicine; Visit Provider Electrodiagnostic Medicine | DX: M25.552 Pain in left hip (principal) | CPT/HCPCS: 97110 ==

== ENCOUNTER 2022-10-06 17:55 | Inpatient (IN) | payer MEDICARE, SELFPAY ==
[2022-10-06] VITALS (12 sets, daily range): BP systolic 125–152; BP diastolic 50–86; PULSE 63–88; RESP 18–21; TEMP 36.5–36.6; O2SAT 90–98; BMI 27.4
[2022-10-06 19:49] LABS: Basophils % 0.3 %; Eosinophils # 0.2 10^3/uL (0.0-0.8); Eosinophils % 1.7 %; Hematocrit 40.9 % (37.0-47.0); Lymphocytes # 1.3 10^3/uL (0.8-4.8); Lymphocytes % 14.2 %; Mean Corpuscular HGB Conc 34.2 g/dL (30.0-36.0); Mean Corpuscular Hemoglobin 31.2 pg (28.0-34.0); Mean Corpuscular Volume 91.1 fl (81-99); Mean Platelet Volume 10.1 fL (7.4-10.4); Monocytes # 0.5 10^3/uL (0.2-0.9); Monocytes % 5.7 %; Neutrophils # 7.04 10^3/uL (1.8-7.7); Nucleated Red Blood Cells % 0 %; Platelet Count 196 10^3/cmm (130-400); Red Blood Count 4.49 10^6/uL (4.1-5.3)
--- NOTE | 2022-10-06 19:57 | CTR_ITS ---
PROCEDURE INFORMATION: Exam: CT Abdomen And Pelvis With Contrast Exam date and time: 10/06/2022 8:06 PM Age: 62 years old Clinical indication: Abdominal pain; Localized; Right upper quadrant (ruq); Prior surgery; Surgery date: 6+ months; Surgery type: Colostomy, hernia repair, rectal surgery; Patient HX: HX rectal CA, colon CA, vaginal CA; Additional info: Ruq abdominal pain, n/v, decreased colostomy output TECHNIQUE: Imaging protocol: Computed tomography of the abdomen and pelvis with contrast. Radiation optimization: All CT scans at this facility use at least one of these dose optimization techniques: automated exposure control; mA and/or kV adjustment per patient size (includes targeted exams where dose is matched to clinical indication); or iterative reconstruction. Contrast material: OMNI 350; Contrast volume: 100 ml; Contrast route: INTRAVENOUS (IV); REPORTING DATA: Count of CT and Cardiac NM exams in prior 12 months: This patient has received [address] and 0 known cardiac nuclear medicine studies in the 12 months prior to the current study. COMPARISON: CT abdomen pelvis w con* [id number] 04/24/2019 12:23 PM RADIATION DOSE METRICS: Total DLP (mGy-cm): 577.23 FINDINGS: Lungs: Atelectasis in the right lung base. Liver: Hypodense lesion in the left liver lobe is too small to characterize but is most likely a cyst. Gallbladder and bile ducts: Normal. No calcified stones. No ductal dilation. Pancreas: Normal. No ductal dilation. Spleen: Normal. No splenomegaly. Adrenal glands: Normal. No mass. Kidneys and ureters: Normal. No hydronephrosis. Stomach and bowel: Linear radiopaque density in the cecum. Resection of the distal colon and rectum with a left colostomy. Air-fluid level in the stomach. No wall thickening. Multiple loops of fluid distended mid small bowel with air-fluid levels measuring up to 3.0 cm. A transition point is noted within the anterior inferior abdominal wall with no focal lesion identified. Appendix: No evidence of appendicitis. Intraperitoneal space: Mesh with anchors in the anterior peritoneal cavity. Vasculature: Arterial calcifications. No aneurysm. Lymph nodes: Unremarkable. No enlarged lymph nodes. Urinary bladder: Unremarkable as visualized. Reproductive: The uterus and ovaries are absent. Bones/joints: Degenerative changes of the lumbar spine. No fracture. Soft tissues: Unremarkable. Other findings: Anterior laparotomy changes. CT/CT abdomen pelvis w con* [id number] IMPRESSION: 1. Mid small bowel obstruction which may be partial. Focal transition point in the lower anterior abdominal cavity which could represent adhesions. 2. Resection of the distal colon and rectum with left colostomy.
--- NOTE | 2022-10-06 19:58 | ED_ITS ---
Documented by User: MARLENY Morales 10/07/22 02:03 HPI - Abdominal Pain General: Chief Complaint: Abdominal Pain Stated Complaint: abd pains Time Seen by Provider: 10/06/22 19:41 History of Present Illness: Patient is a 62-year-old female comes to the ED with abdominal pain. Patient has a history of rectal surgery and currently has colostomy. Abdominal pain started today. Pain started in the morning and it was mild and located in the right upper quadrant of the abdomen. Pain is continued to progress throughout the day and she ate some food and pain got a lot worse. She now says she is having 10 out of 10 pain in her right upper quadrant. Denies any pain radiating any where else or any migration of pain. She is has nausea and had a couple e pisodes of emesis today as well. Patient also says she has had decreased output from her colostomy today. Denies any fevers. Associated Symptoms: Reports nausea and vomiting; Denies chills, constipation, diarrhea, dysuria, fever(s), hematochezia and hematuria Review of Systems Const: Denies: fever(s), chills or fatigue Eyes: Denies: change in vision or eye discomfort ENMT: Denies: throat pain, odynophagia, nasal discharge or nasal congestion Card: Denies: chest pain, palpitations, edema, swelling of feet/ankles, dyspnea on exertion or orthopnea Resp: Denies: dyspnea, productive cough or non-productive cough GI: Reports: abdominal pain, nausea and vomiting; Denies: diarrhea, constipation or hematochezia : Denies: flank pain, dysuria or hematuria Musc: Denies: neck pain, back pain or extremity swelling Skin/Breast: Denies: rash or new lesions Neuro: Denies: headache(s), numbness in extremities or weakness in extremities PFSH ED PFSH: Medical History Depression Generalized anxiety disorder GERD without esophagitis Glossitis History of cancer of vagina History of colon cancer History of small bowel obstruction Hypoestrogenism Hypothalamic hypothyroidism Insomnia disorder 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 Rectal cancer Surgical History Colostomy in place H/O hernia repair parastomal History of hysterectomy complete--1993 History of rectal surgery APR, with pelvic exenteration for recurrence with rectus flap History of removal of Port-a-Cath (03/29/20) History of surgery on left wrist carpel tunnel along with trigger finger and trigger thumb Port-A-Cath in place Family History Grandmother Breast cancer Maternal-breast Father Cancer prostate that spread to bones Sister Cancer brain cancer and lung Mother Chronic kidney disease (CKD) Diabetes Brother Cancer liver Diabetes Grandfather Cancer Maternal--prostate and lung Denies family history of CAD (coronary artery disease) Clotting disorder Hyperlipidemia Bleeding disorder Hypertension Stroke Social History Smoking and tobacco status: former smoker Alcohol intake: current Alcohol intake frequency: holidays/special occasions only Substance/Drug Use: never Household members: spouse Marital status: Current occupational status: disabled Physical Exam Const: COMMON NORMALS: patient oriented x3 and alert GENERAL APPEARANCE: cooperative HENMT: COMMON NORMALS: normocephalic HEAD & SCALP: normocephalic MOUTH: Normal oral and palatal mucosa present THROAT: posterior oropharynx normal and uvula midline Neck/C-Spine: COMMON NORMALS: supple GENERAL: Yes normal visual inspection Resp: COMMON NORMALS: normal respiratory effort, No retractions, No use of accessory muscles and clear to auscultation bilaterally AUSCULTATION: clear to auscultation bilaterally Cardio: COMMON NORMALS: regular rate, regular rhythm, S1 normal heart sound present, S2 normal heart sound present, No gallops present (Cardio), No clicks present (Cardio), No murmurs present (Cardio) and Peripheral pulses 2+ througho ut RATE: regular rate RHYTHM: regular rhythm HEART SOUNDS: S1 normal heart sound present and S2 normal heart sound present PERIPHERAL PULSES: Peripheral pulses 2+ throughout GI: COMMON NORMALS: Normal to inspection, nondistended, normoactive bowel sounds present, Soft to palpation and no masses INSPECTION: Yes GI ostomy present (Colostomy present) PALPATION: Yes Soft to palpation and Yes Tenderness to palpation present (GI) Details: RUQ : COMMON NORMALS: Yes no CVA tenderness BLADDER/KIDNEY EXAM: Yes no CVA tenderness Back/Pelvis: COMMON NORMALS: no CVA tenderness Extremity: COMMON NORMALS: normal to inspection Neuro: COMMON NORMALS: patient oriented x3 SENSORIUM/ORIENTATION: Yes alert GAIT: Yes Normal gait present Skin: GENERAL SKIN EXAM: dry skin Course Vital Signs: Vital signs: Vital Signs Temperature 97.9 F 10/06/22 22:40 Pulse Rate 80 10/06/22 22:40 Respiratory Rate 17 10/07/22 02:00 Blood Pressure 146/76 10/06/22 22:40 Pulse Oximetry 90 10/06/22 22:40 Oxygen Delivery Me thod Room Air 10/06/22 22:42 MDM - Abdominal Pain Medical Decision Making Patient is a 62-year-old female comes to the ED with abdominal pain. Patient has a history of rectal surgery and currently has colostomy. Abdominal pain started today. Pain started in the morning and it was mild and located in the right upper quadrant of the abdomen. Pain is continued to progress throughout the day and she ate some food and pain got a lot worse. She now says she is having 10 out of 10 pain in her right upper quadrant. Denies any pain radiating any where else or any migration of pain. She is has nausea and had a couple episodes of emesis today as well. Patient also says she has had decreased output from her colostomy today. Denies any fevers. Vital stable. Exam of patient shows some right upper quadrant abdominal tenderness and she has a colostomy present. Rest of exam is benign. Labs are all unremarkable. CT of abdomen pelvis shows small bowel obstruction with focal transition point the lower anterior abdominal cavity which could represent adhesions. I contacted Dr. Chance about patient case and he agreed to have patient admitted to the hospital. I talked with Dr. Mi about patient case and he agreed and he contacted the hospitalist and placed orders to have patient admitted. Lab Data I reviewed the patient's lab results. 10/06/22 19:26 10/06/22 19:26 Labs/Radiology: Radiology Impressions Abdomen/Pelvis CT 10/06/22 19:57 IMPRESSION: 1. Mid small bowel obstruction which may be partial. Focal transition point in the lower anterior abdominal cavity which could represent adhesions. 2. Resection of the distal colon and rectum with left colostomy. Laboratory Results WBC 9.0 10^3/uL (4.0-10.0) 10/06/22 19:26 RBC 4.49 10^6/uL (4.1-5.3) 10/06/22: Hgb 14.0 g/dL (11.5-15.3) 10/06/22: Hct 40.9 % (37.0-47.0) 10/06/22: MCV 91.1 fl (81-99) 10/06/22: MCH 31.2 pg (28.0-34.0) 10/06/22 MCHC 34.2 g/dL (30.0-36.0) 10/06/22 RDW 13.0 % (12.1-15.1) 10/06/22 Plt Count 196 10^3/cmm (130-400) 10/06/22 MPV 10.1 fL (7.4-10.4) 10/06/22 Neut % (Auto) 78.0 % 10/06/22: Lymph % (Auto) 14.2 % 10/06/22: [place] % (Auto) 5.7 % 10/06/22: Eos % (Auto) 1.7 % 10/06/22 Baso % (Auto) 0.3 % 10/06/22 Neut # (Auto) 7.04 10^3/uL (1.8-7.7) 10/06/22: Lymph # (Auto) 1.3 10^3/uL (0.8-4.8) 10/06/22: [place] # (Auto) 0.5 10^3/uL (0.2-0.9) 10/06/22: Eos # (Auto) 0.2 10^3/uL (0.0-0.8) 10/06/22: Baso # (Auto) 0.0 10^3/uL (0.0-0.1) 10/06/22 Nucleated RBC % (auto) 0 % 10/06/22 Nucleated RBCs # 0.0 /100WBC 10/06/22: Sodium 140 mmol/L (136-145) 10/06/22: Potassium 4.0 mmol/L (3.5-5.1) 05/19/23 19:26 Chloride 104 mmol/L (98-107) 10/06/22 19:26 Carbon Dioxide 21 mmol/L (22-29) L 10/06/22 19:26 Anion Gap 19.0 (5-19) 10/06/22 19:26 BUN 12 mg/dL (8-23) 10/06/22 19:26 Creatinine 0.9 mg/dL (0.5-0.9) 10/06/22 19:26 GFR Calculation 63.0 mL/min (90-130) L 10/06/22 19:26 Glucose 125 mg/dL (65-115) H 10/06/22 19:26 Calculated Osmolality 291 mOsm/kg (285-295) 10/06/22 19:26 Calcium 8.6 mg/dL (8.5-10.5) 10/06/22 19:26 Total Bilirubin 0.8 mg/dL (0.15-1.2) 10/06/22 19:26 AST 29 U/L (0-32) 10/06/22 19:26 ALT 28 U/L (0-33) 10/06/22 19:26 Alkaline Phosphatase 71 U/L (35-105) 10/06/22 19:26 Total Protein 7.1 g/dL (6.6-8.7) 10/06/22 19:26 Albumin 4.2 g/dL (3.5-5.2) 10/06/22 19:26 Globulin 2.9 g/dL (1.3-4.6) 10/06/22 19:26 Lipase 19 U/L (13-60) 10/06/22 19:26 Discharge Plan Discharge Patient Disposition: Admitted As Inpatient Admit Provider: Jerri Sainz Clinical Impression: Small bowel obstruction Condition: Stable Coding Level of Care Code ED Central Communications Specialist for Chg Fwd Documented by User: Naun Mi DO 10/07/22 04:01 HPI - Abdominal Pain General: Chief Complaint: Abdominal Pain Stated Complaint: abd pains Time Seen by Provider: 10/06/22 19:41 [facility] PFSH: Medical History Depression Generalized anxiety disorder GERD without esophagitis Glossitis History of cancer of vagina History of colon cancer History of small bowel obstruction Hypoestrogenism Hypothalamic hypothyroidism Insomnia disorder 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 Rectal cancer Surgical History Colostomy in place H/O hernia repair parastomal History of hysterectomy complete--1993 History of rectal surgery APR, with pelvic exenteration for recurrence with rectus flap History of removal of Port-a-Cath (03/29/20) History of surgery on left wrist carpel tunnel along with trigger finger and trigger thumb Port-A-Cath in place Family History Grandmother Breast cancer Maternal-breast Father Cancer prostate that spread to bones Sister Cancer brain cancer and lung Mother Chronic kidney disease (CKD) Diabetes Brother Cancer liver Diabetes Grandfather Cancer Maternal--prostate and lung Denies family history of CAD (coronary artery disease) Clotting disorder Hyperlipidemia Bleeding disorder Hypertension Stroke Social History Smoking and tobacco status: former smoker Alcohol intake: current Alcohol intake frequency: holidays/special occasions only Substance/Drug Use: never Household members: spouse Marital status: Current occupational status: disabled Course Vital Signs: Vital signs: Vital Signs Temperature 97.9 F 10/06/22 22:40 Pulse Rate 80 10/06/22 22:40 Respiratory Rate 17 10/07/22 02:00 Blood Pressure 146/76 10/06/22 22:40 Pulse Oximetry 90 10/06/22 22:40 Oxygen Delivery Me thod Room Air 10/06/22 22:42 MDM - Abdominal Pain Medical Decision Making Patient is a 62-year-old female comes to the ED with abdominal pain. Patient has a history of rectal surgery and currently has colostomy. Abdominal pain started today. Pain started in the morning and it was mild and located in the right upper quadrant of the abdomen. Pain is continued to progress throughout the day and she ate some food and pain got a lot worse. She now says she is having 10 out of 10 pain in her right upper quadrant. Denies any pain radiating any where else or any migration of pain. She is has nausea and had a couple episodes of emesis today as well. Patient also says she has had decreased output from her colostomy today. Denies any fevers. Vital stable. Exam of marleny marcano shows some right upper quadrant abdominal tenderness and she has a colostomy present. Rest of exam is benign. Labs are all unremarkable. CT of abdomen pelvis shows small bowel obstruction with focal transition point the lower anterior abdominal cavity which could represent adhesions. I contacted Dr. Chance about patient case and he agreed to have patient admitted to the hospital. I talked with Dr. Mi about patient case and he agreed and he contacted the hospitalist and placed orders to have patient admitted. This patient was originally seen by Mr. Annalisa PA-C.? I agree with his history, evaluation, and treatment. Spoke with the hospitalist, and she is willing to admit. Orders are written. Lab Data 10/06/22 19:10/06/22 19: Labs/Radiology: Radiology Impressions Abdomen/Pelvis CT 10/06/22 19:57 IMPRESSION: 1. Mid small bowel obstruction which may be partial. Focal transition point in the lower anterior abdominal cavity which could represent adhesions. 2. Resection of the distal colon and rectum with left colostomy. Laboratory Results WBC 9.0 10^3/uL (4.0-10.0) 10/06/22: RBC 4.49 10^6/uL (4.1-5.3) 10/06/22: Hgb 14.0 g/dL (11.5-15.3) 10/06/22: Hct 40.9 % (37.0-47.0) 10/06/22: MCV 91.1 fl (81-99) 10/06/22: MCH 31.2 pg (28.0-34.0) 10/06/22: MCHC 34.2 g/dL (30.0-36.0) 10/06/22: RDW 13.0 % (12.1-15.1) 10/06/22: Plt Count 196 10^3/cmm (130-400) 10/06/22 19: MPV 10.1 fL (7.4-10.4) 10/06/22 19: Neut % (Auto) 78.0 % 10/06/22 19: Lymph % (Auto) 14.2 % 10/06/22 19: [place] % (Auto) 5.7 % 10/06/22: Eos % (Auto) 1.7 % 10/06/22 19: Baso % (Auto) 0.3 % 10/06/22: Neut # (Auto) 7.04 10^3/uL (1.8-7.7) 10/06/22: Lymph # (Auto) 1.3 10^3/uL (0.8-4.8) 10/06/22: [place] # (Auto) 0.5 10^3/uL (0.2-0.9) 10/06/22: Eos # (Auto) 0.2 10^3/uL (0.0-0.8) 10/06/22: Baso # (Auto) 0.0 10^3/uL (0.0-0.1) 10/06/22: Nucleated RBC % (auto) 0 % 10/06/22: Nucleated RBCs # 0.0 /100WBC 10/06/22: Sodium 140 mmol/L (136-145) 10/06/22 19: Potassium 4.0 mmol/L (3.5-5.1) 10/06/22: Chloride 104 mmol/L (98-107) 10/06/22: Carbon Dioxide 21 mmol/L (22-29) L 10/06/22 19: Anion Gap 19.0 (5-19) 10/06/22 19: BUN 12 mg/dL (8-23) 10/06/22: Creatinine 0.9 mg/dL (0.5-0.9) 10/06/22: GFR Calculation 63.0 mL/min (90-130) L 10/06/22: Glucose 125 mg/dL (65-115) H 10/06/22: Calculated Osmolality 291 mOsm/kg (285-295) 10/06/22:26 Calcium 8.6 mg/dL (8.5-10.5) 10/06/22 19:26 Total Bilirubin 0.8 mg/dL (0.15-1.2) 10/06/22 19:26 AST 29 U/L (0-32) 10/06/22 19:26 ALT 28 U/L (0-33) 10/06/22 19:26 Alkaline Phosphatase 71 U/L (35-105) 10/06/22 19:26 Total Protein 7.1 g/dL (6.6-8.7) 10/06/22 19:26 Albumin 4.2 g/dL (3.5-5.2) 10/06/22 19:26 Globulin 2.9 g/dL (1.3-4.6) 10/06/22 19:26 Lipase 19 U/L (13-60) 10/06/22 19:26 Discharge Plan Discharge Patient Disposition: Admitted As Inpatient Admit Provider: Jerri Sainz Clinical Impression: Small bowel obstruction Condition: Stable Coding Level of Care Code ED Central Communications Specialist for Carmen Steen
[2022-10-06 19:59] LABS: Alanine Aminotransferase 28 U/L (0-33); Albumin Level 4.2 g/dL (3.5-5.2); Alkaline Phosphatase 71 U/L (35-105); Aspartate Amino Transferase 29 U/L (0-32); Blood Urea Nitrogen 12 mg/dL (8-23); Calcium 8.6 mg/dL (8.5-10.5); Carbon Dioxide 21 mmol/L (22-29); Chloride 104 mmol/L (98-107); Globulin 2.9 g/dL (1.3-4.6); Glucose 125 mg/dL (65-115); Lipase 19 U/L (13-60); Osmolality Calculated 291 mOsm/kg (285-295); Sodium 140 mmol/L (136-145); Total Bilirubin 0.8 mg/dL (0.15-1.2); Total Protein 7.1 g/dL (6.6-8.7)
[2022-10-06] MEDS: iohexol 350 mg/mL 500 mL Btl (per mL) IV (20:10)
[2022-10-06] MEDS: ondansetron 2 mg/ML SDV 2 mL 4 MG IVP (20:22)
[2022-10-06] MEDS: sodium chloride 0.9% 1,000 ML 999 ML IV (20:22)
[2022-10-06] MEDS: morphine 4 mg/mL SDV 1 mL IVP (20:22)
[2022-10-06] MEDS: HYDROmorphone 1 mg/mL INJ 1 mL IVP (21:22)
[2022-10-07] VITALS (11 sets, daily range): BP systolic 103–123; BP diastolic 63–69; PULSE 67–82; RESP 16–18; TEMP 36.3–36.9; O2SAT 91–97
--- NOTE | 2022-10-07 01:25 | P.HP_ITS ---
Providers/Chief Complaint Admitting Physician: Jerri Sainz MD Primary Care Provider: Harpreet Kent DO Chief Complaint: abd pains History of Present Illness Juhi Drew is a 62 year old female With a past medical history of rectal cancer, status postresection, colostomy in place since 2010, currently HEAVEN. She presents to the emergency room today with chief complaints of abdominal pain and nausea and vomiting. CT of the abdomen and pelvis showed small bowel obstructi on with transition point as noted below. She has a past history of SBO in 2017 which was treated conservatively. Denies any fever chills diarrhea cough dyspnea or expectoration. Colostomy has been functioning until yesterday. She refused placement of an NG tube in the ER Review of Systems General: Reports: 10 or more systems reviewed and unremarkable except in HPI and below Const: Denies: fever(s), chills or body aches Eyes: Denies: change in vision, blurry vision or photophobia ENMT: Reports: hoarseness; Denies: throat pain, enlarged tonsils, odynophagia or nasal congestion Card: Denies: chest pain, palpitations, irregular heart rhythm, edema, swelling of feet/ankles, lightheadedness, pre-syncope, dyspnea on exertion or orthopnea Resp: Denies: dyspnea, productive cough, non-productive cough, wheezing, stridor, pain on inspiration, change in phlegm color, hemoptysis or chest congestion GI: Denies: abdominal pain, nausea, vomiting, hematemesis, coffee ground emesis, dysphagia, heartburn, diarrhea, constipation, GI cramping, change in stool character, hematochezia or melena : Denies: flank pain, difficulty voiding, dysuria, urinary frequency, urinary urgency, urinary hesitancy or hematuria Musc: Denies: neck pain, back pain, extremity pain, joint swelling, joint warmth or deformity Neuro: Denies: headache(s), numbness in extremities, weakness in extremities, sensory changes, difficulty walking, frequent falls, dizziness, vertigo, behavioral changes, Slurred speech present or seizure-like activity Psych: Denies: anxiety, depression, suicidal ideation or homicidal ideation Endo: Denies: polyuria, polydipsia, tired all the time, cold intolerance or hot flashes Gonzalo/Lymph: Denies: easy bruising or easy bleeding Medications/Allergies Home Medications Medication Instructions Recorded Confirmed Last Taken Type albuterol sulfate 90 mcg/actuation 2 puff inhalation Q6H PRN 11/20/19 10/06/22 10/06/22 08:00 Rx aerosol inhaler (ProAir HFA) shortness of breath or wheezing 30 days #18 grams estradiol 1 mg tablet 1 mg PO TID 90 days #270 tabs 03/01/21 10/06/22 10/06/22 08:00 Rx lorazepam 1 mg tablet 1 mg PO TID PRN anxiety 30 days 03/21/21 10/06/22 10/06/22 08:00 Rx #90 tabs lactulose 10 gram/15 mL (15 mL) 20 g (30 mL) PO BID PRN 03/25/21 10/06/22 Unknown Rx oral solution constipation #600 mL pantoprazole 40 mg tablet,delayed See Rx Instructions .Route 03/28/21 10/06/22 10/06/22 08:00 Rx release .COMPLEX #90 tabs fluticasone propionate 50 See Rx Instructions .Route 06/14/21 10/06/22 10/06/22 08:00 Rx mcg/actuation nasal .COMPLEX #16 grams spray,suspension zolpidem 10 mg tablet 10 mg PO DAILY 06/17/21 10/06/22 10/05/22 20:00 History sertraline 100 mg tablet (Zoloft) 100 mg PO DAILY 04/21/22 10/06/22 10/06/22 08:00 History pregabalin [Lyrica] 150 cap PO AC 04/27/22 10/06/22 10/06/22 08:00 History cyanocobalamin (vitamin B-12) 5,000 mcg sublingual DAILY 10/06/22 10/06/22 10/06/22 08:00 History 5,000 mcg sublingual tablet (Vitamin B-12) Allergies Allergy/AdvReac Type Severity Reaction Status Date / Time cisplatin Allergy itching Verified 07/25/22 09:08 ketorolac [From Toradol] Allergy ADR-Anxiety Verified 07/25/22 09:08 PFSH Acute PFSH: Medical History Depression Generalized anxiety disorder GERD without esophagitis Glossitis History of cancer of vagina History of colon cancer History of small bowel obstruction Hypoestrogenism Hypothalamic hypothyroidism Insomnia disorder 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 Rectal cancer Surgical History Colostomy in place H/O hernia repair parastomal History of hysterectomy complete--1993 History of rectal surgery APR, with pelvic exenteration for recurrence with rectus flap History of removal of Port-a-Cath (03/29/20) History of surgery on left wrist carpel tunnel along with trigger finger and trigger thumb Port-A-Cath in place Family History Grandmother Breast cancer Maternal-breast Father Cancer prostate that spread to bones Sister Cancer brain cancer and lung Mother Chronic kidney disease (CKD) Diabetes Brother Cancer liver Diabetes Grandfather Cancer Maternal--prostate and lung Denies family history of CAD (coronary artery disease) Clotting disorder Hyperlipidemia Bleeding disorder Hypertension Stroke Social History Smoking and tobacco status: former smoker Alcohol intake: current Alcohol intake frequency: holidays/special occasions only Substance/Drug Use: never Household members: spouse Marital status: Current occupational status: disabled Vitals/I&O/Wt Last Vital Signs Temp 97.9 F 10/06/22 22:40 Pulse 80 10/06/22 22:40 Resp 18 10/06/22 22:40 BP 146/76 10/06/22 22:40 Pulse Ox 90 10/06/22 22:40 O2 Del Method Room Air 10/06/22 22:42 10/06/22 10/06/22 10/07/22 14:59 22:59 06:59 Intake Total 1000 / 1000 Balance 1000 / 1000 Weight last 48 hrs Weight 77.111 kg Weight 77.111 kg Physical Exam Narrative: General: mild distress 2/2 pain, AO x3 HEENT: PERRLA, pupils bilaterally equal and reactive, pallors not present Chest: Normal vesicular breath sounds, no added sounds, equal good air entry bilaterally CVS: S1-S2 regular, no murmurs, no tachycardia, no gallops, no rubs Abdomen: colostomy in place, midline hernia , distended abdomen Neuro: No focal deficits, no facial deformity, AO x3, power 5/5 in all limbs Data 10/06/22 19:26 10/06/22 19: Other Labs: Radiology Impressions Abdomen/Pelvis CT 10/06/22 19:57 IMPRESSION: 1. Mid small bowel obstruction which may be partial. Focal transition point in the lower anterior abdominal cavity which could represent adhesions. 2. Resection of the distal colon and rectum with left colostomy. Laboratory Results WBC 9.0 10^3/uL (4.0-10.0) 10/06/22: RBC 4.49 10^6/uL (4.1-5.3) 10/06/22: Hgb 14.0 g/dL (11.5-15.3) 10/06/22: Hct 40.9 % (37.0-47.0) 10/06/22: MCV 91.1 fl (81-99) 10/06/22: MCH 31.2 pg (28.0-34.0) 10/06/22 MCHC 34.2 g/dL (30.0-36.0) 10/06/22: RDW 13.0 % (12.1-15.1) 10/06/22: Plt Count 196 10^3/cmm (130-400) 10/06/22: MPV 10.1 fL (7.4-10.4) 10/06/22: Neut % (Auto) 78.0 % 10/06/22: Lymph % (Auto) 14.2 % 10/06/22: [place] % (Auto) 5.7 % 10/06/22: Eos % (Auto) 1.7 % 10/06/22: Baso % (Auto) 0.3 % 10/06/22: Neut # (Auto) 7.04 10^3/uL (1.8-7.7) 10/06/22: Lymph # (Auto) 1.3 10^3/uL (0.8-4.8) 10/06/22: [place] # (Auto) 0.5 10^3/uL (0.2-0.9) 10/06/22: Eos # (Auto) 0.2 10^3/uL (0.0-0.8) 10/06/22 19:26 Baso # (Auto) 0.0 10^3/uL (0.0-0.1) 10/06/22 19:26 Nucleated RBC % (auto) 0 % 10/06/22 19: Nucleated RBCs # 0.0 /100WBC 10/06/22 19:26 Sodium 140 mmol/L (136-145) 10/06/22 19:26 Potassium 4.0 mmol/L (3.5-5.1) 10/06/22 19:26 Chloride 104 mmol/L (98-107) 10/06/22 19:26 Carbon Dioxide 21 mmol/L (22-29) L 10/06/22 19:26 Anion Gap 19.0 (5-19) 10/06/22 19:26 BUN 12 mg/dL (8-23) 10/06/22 19: Creatinine 0.9 mg/dL (0.5-0.9) 10/06/22 19:26 GFR Calculation 63.0 mL/min (90-130) L 10/06/22 19:26 Glucose 125 mg/dL (65-115) H 10/06/22 19:26 Calculated Osmolality 291 mOsm/kg (285-295) 10/06/22 19: Calcium 8.6 mg/dL (8.5-10.5) 10/06/22 19: Total Bilirubin 0.8 mg/dL (0.15-1.2) 10/06/22 19:26 AST 29 U/L (0-32) 10/06/22 19: ALT 28 U/L (0-33) 10/06/22 19:26 Alkaline Phosphatase 71 U/L (35-105) 10/06/22 19:26 Total Protein 7.1 g/dL (6.6-8.7) 10/06/22 19: Albumin 4.2 g/dL (3.5-5.2) 10/06/22 19: Globulin 2.9 g/dL (1.3-4.6) 10/06/22 19:26 Lipase 19 U/L (13-60) 10/06/22 19:26 A&P Assessment and plan (1) Small bowel obstruction: Admit to med/surg NPO/ bowel rest Patient refused placement of NGT in the ER prn morphine for pain control zofran for nausea management IVF NS @ 75 cc/ hr surgery consult placed from ER Attestations Medical Necessity Statement*: anticipate > 2 midnight admission for above defined care Coding Level of Care Code Acute Code for Chg Fwd Diagnoses Small bowel obstruction K56.609
[2022-10-07] MEDS: pantoprazole 40 mg SDV IVP (02:00)
[2022-10-07] MEDS: morphine 4 mg/mL SDV 1 mL 2 MG IVP ×2 (02:00→09:48)
[2022-10-07] MEDS: enoxaparin 40 mg/0.4 mL Syringe SUBCUT (02:01)
[2022-10-07] MEDS: ondansetron 2 mg/ML SDV 2 mL 4 MG IVP ×2 (02:01→09:46)
[2022-10-07] MEDS: dextrose 5%-sod chloride 0.9% 1,000 ML 75 ML IV (02:03)
[2022-10-07] MEDS: metoclopramide 5 mg/mL SDV 2 mL 10 MG IVP (05:15)
[2022-10-07] MEDS: HYDROmorphone 1 mg/mL INJ 1 mL IVP ×3 (05:15→18:18)
--- NOTE | 2022-10-07 09:23 | P.CONIM_ITS ---
Providers/Reason For Consult Consulting Physician/Specialty*: Dr. Casey Chance DO/General surgery Reason for Consult*: Small bowel obstruction Attending Physician: Shiva Dutta MD Primary Care Provider: Harpreet Kent DO History of Present Illness History of Present Illness Juhi Drew is a 62 year old female presenting to the hospital for 1 day history of abdominal pain, nausea and vomiting and lack of colostomy output. This happened in 2017 and resolved with conservative management. She originally refused the G-tube placement in the emergency room. Abdominal pain is diffuse. Palpation makes it worse. Nothing explained better. She has not had any emesis since yesterday and continues to not have any stool or flatus in colostomy bag she denies hematemesis Review of Systems General: Reports: 10 or more systems reviewed and unremarkable except in HPI and below Medications/Allergies Home Medications Medication Instructions Recorded Confirmed Last Taken Type albuterol sulfate 90 mcg/actuation 2 puff inhalation Q6H PRN 11/20/19 10/06/22 10/06/22 08:00 Rx aerosol inhaler (ProAir HFA) shortness of breath or wheezing 30 days #18 grams estradiol 1 mg tablet 1 mg PO TID 90 days #270 tabs 03/01/21 10/06/22 10/06/22 08:00 Rx lorazepam 1 mg tablet 1 mg PO TID PRN anxiety 30 days 03/21/21 10/06/22 10/06/22 08:00 Rx #90 tabs lactulose 10 gram/15 mL (15 mL) 20 g (30 mL) PO BID PRN 03/25/21 10/06/22 Unknown Rx oral solution constipation #600 mL pantoprazole 40 mg tablet,delayed See Rx Instructions .Route 03/28/21 10/06/22 10/06/22 08:00 Rx release .COMPLEX #90 tabs fluticasone propionate 50 See Rx Instructions .Route 06/14/21 10/06/22 10/06/22 08:00 Rx mcg/actuation nasal .COMPLEX #16 grams spray,suspension zolpidem 10 mg tablet 10 mg PO DAILY 06/17/21 10/06/22 10/05/22 20:00 History sertraline 100 mg tablet (Zoloft) 100 mg PO DAILY 04/21/22 10/06/22 10/06/22 08:00 History pregabalin [Lyrica] 150 cap PO AC 04/27/22 10/06/22 10/06/22 08:00 History cyanocobalamin (vitamin B-12) 5,000 mcg sublingual DAILY 10/06/22 10/06/22 10/06/22 08:00 History 5,000 mcg sublingual tablet (Vitamin B-12) Allergies Allergy/AdvReac Type Severity Reaction Status Date / Time cisplatin Allergy itching Verified 07/25/22 09:08 ketorolac [From Toradol] Allergy ADR-Anxiety Verified 07/25/22 09:08 Current Medications Generic Name Dose Route Start Last Admin Trade Name Freq PRN Reason Stop Dose Admin Enoxaparin Sodium 40 mg 10/07/22 02:00 10/07/22 02:01 Enoxaparin 40 Mg/0.4 Ml Syringe SUBCUT 40 mg Q24H WILL Administration Hydromorphone HCl 1 mg 10/07/22 05:00 10/07/22 05:15 Hydromorphone 1 Mg/Ml Inj 1 Ml IVP 1 mg Q8H PRN Administration MODERATE TO SEVERE PAIN Dextrose/Sodium Chloride 1,000 mls @ 150 mls/hr 10/07/22 01:30 10/07/22 02:03 Dextrose 5%-Sod Chloride 0.9% IV 75 mls/hr .Q6H40M WILL Administration Metoclopramide HCl 10 mg 10/07/22 05:01 10/07/22 05:15 Metoclopramide 5 Mg/Ml Sdv 2 Ml IVP 10 mg Q8H PRN Administration NAUSEA AND VOMITING Morphine Sulfate 2 mg 10/07/22 01:20 10/07/22 02:00 Morphine 4 Mg/Ml Sdv 1 Ml IVP 2 mg Q4H PRN Administration SEVERE PAIN Ondansetron HCl 4 mg 10/07/22 01:20 10/07/22 02:01 Ondansetron 2 Mg/Ml Sdv 2 Ml IVP 4 mg Q8H PRN Administration vomiting, or N/V if npo Pantoprazole Sodium 40 mg 10/07/22 01:30 10/07/22 02:00 Pantoprazole 40 Mg Sdv IVP 40 mg Q24H WILL Administration PFSH Acute PFSH: Medical History Depression Generalized anxiety disorder GERD without esophagitis Glossitis History of cancer of vagina History of colon cancer History of small bowel obstruction Hypoestrogenism Hypothalamic hypothyroidism Insomnia disorder 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 Rectal cancer Surgical History Colostomy in place H/O hernia repair parastomal History of hysterectomy complete--1993 History of rectal surgery APR, with pelvic exenteration for recurrence with rectus flap History of removal of Port-a-Cath (03/29/20) History of surgery on left wrist carpel tunnel along with trigger finger and trigger thumb Port-A-Cath in place Family History Grandmother Breast cancer Maternal-breast Father Cancer prostate that spread to bones Sister Cancer brain cancer and lung Mother Chronic kidney disease (CKD) Diabetes Brother Cancer liver Diabetes Grandfather Cancer Maternal--prostate and lung Denies family history of CAD (coronary artery disease) Clotting disorder Hyperlipidemia Bleeding disorder Hypertension Stroke Social History Smoking and tobacco status: former smoker Alcohol intake: current Alcohol intake frequency: holidays/special occasions on ly Substance/Drug Use: never Household members: spouse Marital status: Current occupational status: disabled Vitals/I&O/Wt Last Vital Signs Temp 98.4 F 10/07/22 08:00 Pulse 71 10/07/22 08:00 Resp 17 10/07/22 08:00 BP 108/63 10/07/22 08:00 Pulse Ox 93 10/07/22 08:00 O2 Del Method Room Air 10/07/22 08:00 10/06/22 10/07/22 10/07/22 22:59 06:59 14:59 Intake Total 1000 / 1000 Balance 1000 / 1000 Weight last 48 hrs Weight 170 lb Weight 170 lb Physical Exam Narrative: General : Patient is well developed , no acute distress, oriented x3 Head : Normal cephalic, a-traumatic. Ears : Pinnae and external canal are normal. Hearing is normal. Eyes : PERRLA, Sclera and injection are normal. No conjunctival discharge. Nose : Mucous membranes are without erythema. Throat : buccal mucosa is normal, gums are without significant recession or hypertrophy. Lungs : Equal chest rise bilaterally, no use of accessory muscles, trachea is midline. Cor : Rate and rhythm are normal. Abdomen : Soft, distended, diffusely tender, no g/r/m Colostomy pink and patent without output Extremities : No edema, no cyanosis or clubbing, dorsalis pedis pulses are present bilaterally, non-tender to palpation of calves. Upper extremities are normal bilaterally. Back : non-tender to palpation, no CVA tenderness. Neuro : CN II - XII intact, Upper and lower extremities have equal and full strength Data 10/06/22 19:26 10/06/22 19:26 A&P Assessment and plan (1) Small bowel obstruction: Plan Anxiety and pain management IV fluids 250 mL/h NGT to LIWS N.p.o. Conservative management for now. If she does not begin passing flatus in the next few days, we will have to consider diagnostic laparoscopy versus exploratory laparotomy Medical management per hospitalist Coding Level of Care Code Acute Code for [facility] Fwd Diagnoses Small bowel obstruction K56.609
[2022-10-07] MEDS: LORazepam 2 mg/mL INJ 1 mL IVP ×2 (09:49→21:11)
[2022-10-07] MEDS: pneumococcal (23 valent) SDV 0.5 mL IM (09:49)
--- NOTE | 2022-10-07 10:12 | XRR_ITS ---
PROCEDURE INFORMATION: Exam: XR Chest Exam date and time: 10/07/2022 10:24 AM Age: 62 years old Clinical indication: Device placement; Ng tube; Additional info: Ng placement TECHNIQUE: Imaging protocol: Radiologic exam of the chest. Views: 1 view. COMPARISON: CR XR chest 2V* [id number] 05/11/2022 11:54 AM FINDINGS: Tubes, catheters and devices: NG tube terminates in the region of the gastric body. Lungs: Unremarkable. No consolidation. Pleural spaces: Unremarkable. No pleural effusion. No pneumothorax. Heart/Mediastinum: Unremarkable. No cardiomegaly. Bones/joints: Unremarkable. XR/XR chest 1V portable [id number] IMPRESSION: NG tube terminates in the region of the gastric body.
--- NOTE | 2022-10-07 11:01 | PM.PN ---
Subjective Subjective: Patient was seen this morning, she tells me that she continues to have abdominal pain, has not had any colostomy output, no nausea, no vomiting Vitals/I&O/Wt Last Vital Signs Temp 98.4 F 10/07/22 08:00 Pulse 71 10/07/22 08:00 Resp 18 10/07/22 09:48 BP 108/63 10/07/22 08:00 Pulse Ox 93 10/07/22 08:00 O2 Del Method Room Air 10/07/22 08:00 10/06/22 10/07/22 10/07/22 22:59 06:59 14:59 Intake Total 1000 / 1000 Balance 1000 / 1000 Weight last 48 hrs Weight 77.111 kg Weight 77.111 kg Physical Exam Const: COMMON NORMALS: no acute distress and patient oriented x3 Resp: COMMON NORMALS: normal respiratory effort, No retractions, No use of accessory muscles and clear to auscultation bilaterally AUSCULTATION: clear to auscultation bilaterally Cardio: COMMON NORMALS: regular rate, regular rhythm, S1 normal heart sound present and S2 normal heart sound present RATE: regular rate RHYTHM: regular rhythm HEART SOUNDS: S1 normal heart sound present and S2 normal heart sound present GI: OTHER: Abdomen soft, slightly distended, decreased bowel sounds, no guarding, no rebound, no rigidity, colostomy with no output Extremity: COMMON NORMALS: no pedal edema Neuro: COMMON NORMALS: patient oriented x3 Psych: COMMON NORMALS: mental status grossly normal Data 10/06/22 19:26 10/06/22 19:26 A&P Assessment and plan (1) Small bowel obstruction: Admit to med/surg NPO/ bowel rest Patient refused placement of NGT in the ER As needed Dilaudid for pain control zofran for nausea management IVF NS @150 cc an hour surgery consult placed from ER Monitor electrolytes Plan Plan for today stop morphine, increased doses of Dilaudid, increase fluids to 150 cc, serial abdominal exams, monitor for nausea, vomiting, spoke to general surgery Attestations Medical Necessity Statement*: Patient requires hospitalization for small bowel obstruction Diagnoses Small bowel obstruction K56.609
[2022-10-07] MEDS: dextrose 5%-sod chloride 0.9% 1,000 ML 150 ML IV ×2 (12:24→18:20)
[2022-10-08] VITALS: O2SAT 94
[2022-10-08] MEDS: pantoprazole 40 mg SDV IVP (00:36)
[2022-10-08] MEDS: dextrose 5%-sod chloride 0.9% 1,000 ML 150 ML IV ×2 (00:36→06:37)
[2022-10-08] MEDS: enoxaparin 40 mg/0.4 mL Syringe SUBCUT (03:03)
[2022-10-08 04:00] VITALS: BP 104/58; PULSE 78; RESP 18; TEMP 36.7; O2SAT 93
[2022-10-08] MEDS: LORazepam 2 mg/mL INJ 1 mL IVP (05:21)
[2022-10-08 05:54] LABS: Basophils % 0.4 %; Eosinophils # 0.1 10^3/uL (0.0-0.8); Eosinophils % 1.2 %; Hematocrit 36.8 % (37.0-47.0); Hemoglobin 11.9 g/dL (11.5-15.3); Lymphocytes # 1.1 10^3/uL (0.8-4.8); Lymphocytes % 21.3 %; Mean Corpuscular HGB Conc 32.3 g/dL (30.0-36.0); Mean Corpuscular Hemoglobin 31.6 pg (28.0-34.0); Mean Corpuscular Volume 97.6 fl (81-99); Mean Platelet Volume 10.1 fL (7.4-10.4); Monocytes # 0.6 10^3/uL (0.2-0.9); Monocytes % 12.8 %; Neutrophils # 3.17 10^3/uL (1.8-7.7); Neutrophils % 64.1 %; Nucleated Red Blood Cells % 0 %; Platelet Count 153 10^3/cmm (130-400); Red Blood Count 3.77 10^6/uL (4.1-5.3); Red Cell Distribution Width 13.5 % (12.1-15.1); White Blood Count 4.9 10^3/uL (4.0-10.0)
[2022-10-08 06:12] LABS: Alanine Aminotransferase 18 U/L (0-33); Albumin Level 3.1 g/dL (3.5-5.2); Alkaline Phosphatase 56 U/L (35-105); Anion Gap 12.4 (5-19); Aspartate Amino Transferase 18 U/L (0-32); Blood Urea Nitrogen 8 mg/dL (8-23); Calcium 7.6 mg/dL (8.5-10.5); Carbon Dioxide 21 mmol/L (22-29); Chloride 111 mmol/L (98-107); Globulin 2.7 g/dL (1.3-4.6); Glomerular Filtration Rate 72.2 mL/min (90-130); Glucose 125 mg/dL (65-115); Magnesium 1.7 mg/dL (1.7-2.3); Osmolality Calculated 292 mOsm/kg (285-295); Potassium 3.4 mmol/L (3.5-5.1); Sodium 141 mmol/L (136-145); Total Bilirubin 0.6 mg/dL (0.15-1.2); Total Protein 5.8 g/dL (6.6-8.7)
[2022-10-08 07:43] VITALS: BP 134/73; PULSE 74; RESP 16; TEMP 36.7; O2SAT 93
--- NOTE | 2022-10-08 10:49 | PM.PN ---
Subjective Subjective: Patient removed her NG tube overnight. She still having significant abdominal pain. Vitals/I&O/Wt Last Vital Signs Temp 98.1 F 10/08/22 07:43 Pulse 74 10/08/22 07:43 Resp 16 10/08/22 07:43 BP 134/73 10/08/22 07:43 Pulse Ox 93 10/08/22 07:43 O2 Del Method Room Air 10/08/22 07:43 10/07/22 10/08/22 10/08/22 22:59 06:59 14:59 Intake Total 890 / 1890.00 1842.5 / 3732.50 282.5 / 282.5 Output Total 200 / 200 Balance 890 / 1890.00 1642.5 / 3532.50 282.5 / 282.5 Weight last 48 hrs Weight 170 lb Weight 170 lb Physical Exam Narrative: General: No acute distress Abdomen: Soft, moderately distended, diffusely tender to palpation, no guarding rebound or masses Colostomy pink patent and producing Data 10/08/22 05:30 10/08/22 05:30 A&P Assessment and plan (1) Small bowel obstruction: Plan Anxiety and pain management IV fluids 150 mL/h DC NG tube Clear liquid diet Conservative management for now. If she does not begin passing flatus in the next few days, we will have to consider diagnostic laparoscopy versus exploratory laparotomy Medical management per hospitalist Patient would like to leave AMA. My medical advice is to stay on a clear liquid diet until tomorrow and then advance to full's and then soft prior to discharge. Attestations Medical Necessity Statement*: Per hospitalist Coding Level of Care Code Acute Code for [facility] Fwd Diagnoses Small bowel obstruction K56.609
[2022-10-08 11:34] VITALS: BP 114/65; PULSE 68; RESP 16; TEMP 36.8; O2SAT 94
--- NOTE | 2022-10-08 11:53 | PM.DCS ---
Discharge Providers Date of Admission: 10/06/22 22:10 Date of Discharge: October 08, 2022 Attending Provider at Admission: Jerri Sainz MD Attending Provider at Discharge: Shiva Dutta MD Primary Care Provider: Harpreet Kent DO Diagnoses at Discharge Discharge Diagnosis (1) Small bowel obstruction: Status: Acute Reason for Visit Reason for Visit: [facility] Hospital Course Hospital Course Juhi Drew is a 62 year old female? With a past medical history of rectal cancer, status postresection, colostomy in place since 2010, currently HEAVEN.? She presents to the emergency room today with chief complaints of abdominal pain and nausea and vomiting.? CT of the abdomen and pelvis showed small bowel obstruction with transition point as noted below. She has a past history of SBO in 2017 which was treated conservatively. Denies any fever chills diarrhea cough dyspnea or expectoration.? Colostomy has been functioning until yesterday. She refused placement of an NG tube in the ER Patient was admitted to [facility] for small bowel obstruction, general surgery was consulted, conservative manage with fluids, NG tube, bowel rest. The morning of 10/08/2022, patient removed her IV, removed her NG tube, and wanted to leave AGAINST MEDICAL ADVICE. Discussed morbidity and mortality about leaving AGAINST MEDICAL ADVICE, recommended for her to stay on clears for at least 24 hours then transition to a soft mechanical diet tomorrow, under the observation in the hospital and with consultation with surgery as per their recommendations. Patient denies passing flatus through colostomy did, she reported having stool in her colostomy bag, but emptied it herself, did report abdominal pain, the morning of 10/08/2022. However patient wanted to leave AGAINST MEDICAL ADVICE,, left AGAINST MEDICAL ADVICE Physical Exam Const: COMMON NORMALS: no acute distress and patient oriented x3 Resp: COMMON NORMALS: normal respiratory effort, No retractions, No use of accessory muscles and clear to auscultation bilaterally AUSCULTATION: clear to auscultation bilaterally Cardio: COMMON NORMALS: regular rate, regular rhythm, S1 normal heart sound present and S2 normal heart sound present RATE: regular rate RHYTHM: regular rhythm HEART SOUNDS: S1 normal heart sound present and S2 normal heart sound present GI: AUSCULTATION: Yes Hypoactive bowel sounds present OTHER: No guarding, no rebound, no rigidity, patient reported emptying her colostomy bag before I saw her, denies passing flatus Extremity: COMMON NORMALS: no pedal edema Neuro: COMMON NORMALS: patient oriented x3 Psych: COMMON NORMALS: mental status grossly normal Discharge Data Studies Completed and Pending Completed Studies During Hospitalization Category Date Time Status CT abdomen pelvis w con* [id number] Stat Cat Scan 10/06/22 19:57 Completed XR chest 1V portable [id number] Stat Exams 10/07/22 10:12 Completed Pending at discharge Category Date Time Status Urinalysis Stat Lab 10/06/22 19:41 Ordered Radiology Impressions Abdomen/Pelvis CT 10/06/22 19:57 IMPRESSION: 1. Mid small bowel obstruction which may be partial. Focal transition point in the lower anterior abdominal cavity which could represent adhesions. 2. Resection of the distal colon and rectum with left colostomy. Chest X-Ray 10/07/22 10:12 IMPRESSION: NG tube terminates in the region of the gastric body. Laboratory Results WBC 4.9 10^3/uL (4.0-10.0) 10/08/22 05:30 RBC 3.77 10^6/uL (4.1-5.3) L 10/08/22 05:30 Hgb 11.9 g/dL (11.5-15.3) 10/08/22 05:30 Hct 36.8 % (37.0-47.0) L 10/08/22 05:30 MCV 97.6 fl (81-99) 10/08/22 05:30 MCH 31.6 pg (28.0-34.0) 10/08/22 05:30 MCHC 32.3 g/dL (30.0-36.0) 10/08/22 05:30 RDW 13.5 % (12.1-15.1) 10/08/22 05:30 Plt Count 153 10^3/cmm (130-400) 10/08/22 05:30 MPV 10.1 fL (7.4-10.4) 10/08/22 05:30 Neut % (Auto) 64.1 % 10/08/22 05:30 Lymph % (Auto) 21.3 % 10/08/22 05:30 [place] % (Auto) 12.8 % 10/08/22 05:30 Eos % (Auto) 1.2 % 10/08/22 05:30 Baso % (Auto) 0.4 % 10/08/22 05:30 Neut # (Auto) 3.17 10^3/uL (1.8-7.7) 10/08/22 05:30 Lymph # (Auto) 1.1 10^3/uL (0.8-4.8) 10/08/22 05:30 [place] # (Auto) 0.6 10^3/uL (0.2-0.9) 10/08/22 05:30 Eos # (Auto) 0.1 10^3/uL (0.0-0.8) 10/08/22 05:30 Baso # (Auto) 0.0 10^3/uL (0.0-0.1) 10/08/22 05:30 Nucleated RBC % (auto) 0 % 10/08/22 05:30 Nucleated RBCs # 0.0 /100WBC 10/08/22 05:30 Sodium 141 mmol/L (136-145) 10/08/22 05:30 Potassium 3.4 mmol/L (3.5-5.1) L 10/08/22 05:30 Chloride 111 mmol/L (98-107) H 10/08/22 05:30 Carbon Dioxide 21 mmol/L (22-29) L 10/08/22 05:30 Anion Gap 12.4 (5-19) 10/08/22 05:30 BUN 8 mg/dL (8-23) 10/08/22 05:30 Creatinine 0.8 mg/dL (0.5-0.9) 10/08/22 05:30 GFR Calculation 72.2 mL/min (90-130) L 10/08/22 05:30 Glucose 125 mg/dL (65-115) H 10/08/22 05:30 Calculated Osmolality 292 mOsm/kg (285-295) 10/08/22 05:30 Calcium 7.6 mg/dL (8.5-10.5) L 10/08/22 05:30 Magnesium 1.7 mg/dL (1.7-2.3) 10/08/22 05:30 Total Bilirubin 0.6 mg/dL (0.15-1.2) 10/08/22 05:30 AST 18 U/L (0-32) 10/08/22 05:30 ALT 18 U/L (0-33) 10/08/22 05:30 Alkaline Phosphatase 56 U/L (35-105) 10/08/22 05:30 Total Protein 5.8 g/dL (6.6-8.7) L 10/08/22 05:30 Albumin 3.1 g/dL (3.5-5.2) L 10/08/22 05:30 Globulin 2.7 g/dL (1.3-4.6) 10/08/22 05:30 Lipase 19 U/L (13-60) 10/06/22 19:26 Vitals Last Vital Signs Temp 98.3 F 10/08/22 11:34 Pulse 68 10/08/22 11:34 Resp 16 10/08/22 11:34 BP 114/65 10/08/22 11:34 Pulse Ox 94 10/08/22 11:34 O2 Del Method Room Air 10/08/22 11:34 Discharge Plan Discharge Patient Disposition: Left Against Medical Advice Condition: Stable Prescriptions: No Action zolpidem 10 mg tablet 10 mg PO DAILY pregabalin [Lyrica] 150 cap PO AC albuterol sulfate [ProAir HFA] 90 mcg/actuation HFA aerosol inhaler 2 puff INHALATION Q6H PRN (Reason: shortness of breath or wheezing) 30 Days Qty: 18 5RF estradiol 1 mg tablet 1 mg PO TID 90 Days Qty: 270 1RF lorazepam 1 mg tablet 1 mg PO TID PRN (Reason: anxiety) 30 Days Qty: 90 2RF lactulose 10 gram/15 mL (15 mL) solution 20 g PO BID PRN (Reason: constipation) Qty: 600 2RF pantoprazole 40 mg tablet,delayed release (DR/EC) See Rx Instructions .ROUTE .COMPLEX Qty: 90 1RF Dose Instruction: Take 1 tablet by mouth once daily Rx Instructions: Take 1 tablet by mouth once daily fluticasone propionate 50 mcg/actuation spray,suspension See Rx Instructions .ROUTE .COMPLEX Qty: 16 4RF Dose Instruction: Use 1 spray(s) in each nostril once daily Rx Instructions: Use 1 spray(s) in each nostril once daily sertraline [Zoloft] 100 mg Tablet 100 mg PO DAILY Vitamin B-12 5,000 mcg Tablet, Sublingual 5,000 mcg SUBLINGUAL DAILY Referrals: Harpreet Kent, [Primary Care Provider] - Discharge Diet: As Directed Discharge Activity: Resume usual activity Discharge Attestations Time Spent in Discharge Care*: less than 30 min Quality Metrics Clinical Quality Measures [ No reported AMI, CVA or VTE this stay] Coding Level of Care Code 39094 Total time (in minutes) for Discharge: 30 Diagnoses Small bowel obstruction K56.609
--- NOTE | 2022-10-08 12:01 | PC.NURSE ---
Patient resting in bed with family member at bedside, patient voices she would like to continue with leaving AMA. Formed signed, education given with possibility of due to patients continuing need of care. Patient verbalizes understanding. Patient Alert and Oriented, ambulated herself out.
== END 2022-10-08 11:45 | disposition left against medical advice (07) | DRG 390 ==
LOC: ER 20:01 → MEDSURG 22:26
PROVIDERS: Admitting Provider Student in an Organized Health Care Education/Training Program; Emergency Provider Physician Assistant; PCP Electrodiagnostic Medicine; Visit Provider Family Medicine
DX: K56.609 Unspecified intestinal obstruction, unspecified as to partial versus complete obstruction (principal); Z85.048 Personal history of other malignant neoplasm of rectum, rectosigmoid junction, and anus; Z93.3 Colostomy status; Z53.29 Procedure and treatment not carried out because of patient's decision for other reasons; Z79.51 Long term (current) use of inhaled steroids; Z79.890 Hormone replacement therapy; F32.9 Major depressive disorder, single episode, unspecified; F41.1 Generalized anxiety disorder; K21.9 Gastro-esophageal reflux disease without esophagitis; E03.9 Hypothyroidism, unspecified; Z87.891 Personal history of nicotine dependence
CPT/HCPCS: 36415; 71045; 74177; 80053; 83690; 83735; 85025; 90471; 90732; 96372; 96374; 96375; 99285; C9113; J1170; J1650; J2060; J2270; J2405; J2765; J7030; J7042; Q9967

== ENCOUNTER 2023-05-13 15:04 | Emergency (ER) | payer MEDICARE, SELFPAY ==
--- NOTE | 2023-05-13 15:05 | XRR_ITS ---
PROCEDURE INFORMATION: Exam: XR Chest Exam date and time: 05/13/2023 3:29 PM Age: 62 years old Clinical indication: Pain; Angina pectoris; Additional info: Cp TECHNIQUE: Imaging protocol: Radiologic exam of the chest. Views: 1 view. COMPARISON: CR XR chest 1V portable [id number] 10/07/2022 10:24 AM FINDINGS: Tubes, catheters and devices: Interval removal of nasogastric tube. Lungs: No significant active pathology. Pleural spaces: No pleural effusion or pneumothorax. Heart/Mediastinum: Unremarkable. Bones/joints: No significant pathology. XR/XR chest 1V portable [id number] IMPRESSION: No acute pathology.
[2023-05-13 15:15] VITALS: BP 139/74; PULSE 77; RESP 14; O2SAT 97
--- NOTE | 2023-05-13 15:34 | ED_ITS ---
HPI - Neck Pain/Injury 2 General: Chief Complaint: Neck Pain/Injury Stated Complaint: rt arm pain / heaviness Time Seen by Provider: 05/13/23 15:15 Source: patient Mode of arrival: ambulatory Limitations: no limitations History of Present Illness: 62-year-old female states she been havin g shooting pains down her right arm for 2 weeks states she also had some heaviness like feeling in that arm. Had some neck pains as well denies any shortness of breath or chest pain she denies any worsening proving factors rates her pain a 3 out of 10 currently. Associated symptoms: Denies headache(s) or nausea Review of Systems 2 Const: Denies: fever(s), chills, body aches or change in appetite ENMT: Denies: throat pain or dental pain Card: Denies: chest pain Resp: Denies: dyspnea GI: Denies: abdominal pain, nausea, vomiting or diarrhea : Denies: dysuria Musc: Reports: neck pain and extremity pain; Denies: back pain Skin/Breast: Denies: rash Neuro: Denies: headache(s) Psych: Denies: depression PFSH ED 2 PFSH: Medical History Depression Generalized anxiety disorder GERD without esophagitis Glossitis History of cancer of vagina History of colon cancer History of small bowel obstruction Hypoestrogenism Hypothalamic hypothyroidism Insomnia disorder 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 Rectal cancer Surgical History Colostomy in place H/O hernia repair parastomal History of hysterectomy complete--1993 History of rectal surgery APR, with pelvic exenteration for recurrence with rectus flap History of removal of Port-a-Cath (03/29/20) History of surgery on left wrist carpel tunnel along with trigger finger and trigger thumb Port-A-Cath in place Family History Grandmother Breast cancer Maternal-breast Father Cancer prostate that spread to bones Sister Cancer brain cancer and lung Mother Chronic kidney disease (CKD) Diabetes Brother Cancer liver Diabetes Grandfather Cancer Maternal--prostate and lung Denies family history of CAD (coronary artery disease) Clotting disorder Hyperlipidemia Bleeding disorder Hypertension Stroke Social History Smoking and tobacco/nicotine status: former use of tobacco/nicotine Alcohol intake: current Alcohol intake frequency: holidays/special occasions only Substance/Drug Use: never Household members: spouse Marital status: Current occupational status: disabled Physical Exam 2 Const: COMMON NORMALS: no acute distress, patient oriented x3 and healthy appearing HENMT: COMMON NORMALS: normocephalic and atraumatic HEAD & SCALP: n ormocephalic and atraumatic Eye: COMMON NORMALS: Equal, round and reactive pupils present and EOMs intact bilaterally PUPIL: Yes Equal, round and reactive pupils present Neck/C-Spine: COMMON NORMALS: full ROM and supple Chest: COMMONS NORMALS: normal inspection of the chest and normal palpation of entire chest wall Resp: COMMON NORMALS: normal respiratory effort, No retractions, No use of accessory muscles and clear to auscultation bilaterally AUSCULTATION: clear to auscultation bilaterally Cardio: COMMON NORMALS: regular rate, regular rhythm and No murmurs present (Cardio) RATE: regular rate RHYTHM: regular rhythm GI: COMMON NORMALS: Normal to inspection, nondistended, normoactive bowel sounds present, Soft to palpation, non-tender and no masses PALPATION: Yes Soft to palpation Extremity: COMMON NORMALS: normal to inspection and full ROM Neuro: COMMON NORMALS: patient oriented x3, moves all extremities and no focal motor deficits Psych: COMMON NORMALS: mental status grossly normal, Normal thought process present and cooperative THOUGHT PROCESS: Normal thought process present Skin: COMMON NORMALS: no rashes or lesions noted and no wounds GENERAL SKIN EXAM: no rashes or lesions noted Course 2 Vital Signs: Vital signs: Vital Signs Pulse Rate 77 05/13/23 15:15 Respiratory Rate 14 05/13/23 15:15 Blood Pressure 139/74 05/13/23 15:15 Pulse Oximetry 97 05/13/23 15:15 Oxygen Delivery Me thod Room Air 05/13/23 15:15 MDM - Neck Pain/Injury Medical Decision Making Patient presents here with right-sided arm pain her troponin here is normal no signs of acute coronary syndrome could be nerve pain or muscular pain she is stable for discharge she is follow-up with PCP return if worsening. Medical Records I reviewed the patient's medical records. Lab Data I reviewed the patient's lab results. 05/13/23 15:56 05/13/23 15:56 Radiology Impressions Chest X-Ray 05/13/23 15:05 IMPRESSION: No acute pathology. Laboratory Results WBC 7.11 10^3/uL (3.29-11.43) 05/13/23 15:56 RBC 4.23 10^6/uL (3.85-5.65) 05/13/23 15:56 Hgb 13.40 g/dL (11.27-16.99) 05/13/23 15:56 Hct 38.0 % (36-47) 05/13/23 15:56 MCV 89.8 fl (85-98) 05/13/23 15:56 MCH 31.7 pg (27-33) 05/13/23 15:56 MCHC 35.3 g/dL (30-55) 05/13/23 15:56 RDW 12.6 % (12.1-15.1) 05/13/23 15:56 Plt Count 158 10^3/cmm (157-399) 05/13/23 15:56 MPV 10.1 fL (7.4-10.4) 05/13/23 15:56 Neut % (Auto) 60.3 % 05/13/23 15:56 Lymph % (Auto) 30.5 % 05/13/23 15:56 [place] % (Auto) 7.3 % 05/13/23 15:56 Eos % (Auto) 1.3 % 05/13/23 15:56 Baso % (Auto) 0.3 % 05/13/23 15:56 Neut # (Auto) 4.29 10^3/uL (1.8-7.7) 05/13/23 15:56 Lymph # (Auto) 2.2 10^3/uL (0.8-4.8) 05/13/23 15:56 [place] # (Auto) 0.5 10^3/uL (0.2-0.9) 05/13/23 15:56 Eos # (Auto) 0.1 10^3/uL (0.0-0.8) 05/13/23 15:56 Baso # (Auto) 0.0 10^3/uL (0.0-0.1) 05/13/23 15:56 Nucleated RBC % (auto) 0 % 05/13/23 15:56 Nucleated RBCs # 0.0 /100WBC 05/13/23 15:56 Sodium 139 mmol/L (136-145) 05/13/23 15:56 Potassium 3.8 mmol/L (3.5-5.1) 05/13/23 15:56 Chloride 105 mmol/L (98-107) 05/13/23 15:56 Carbon Dioxide 24 mmol/L (22-29) 05/13/23 15:56 Anion Gap 13.8 (5-19) 05/13/23 15:56 BUN 21 mg/dL (8-23) 05/13/23 15:56 Creatinine 1.1 mg/dL (0.5-0.9) H 05/13/23 15:56 GFR Calculation 50.0 mL/min (90-130) L 05/13/23 15:56 Glucose 101 mg/dL (65-115) 05/13/23 15:56 Calculated Osmolality 291 mOsm/kg (285-295) 05/13/23 15:56 Calcium 8.8 mg/dL (8.5-10.5) 05/13/23 15:56 Troponin T Baseline < 6 ng/L (0-10) 05/13/23 15:56 All radiology interpretation(s) finalized by discharge EKG Data EKG 1: I personally reviewed and interpreted this EKG as follows: EKG interpretation date: 05/13/23 EKG interpretation time: 15:40 Interpretation: nsr hr [address] or t wave abnormalities qrs 89 qtc 399 Discharge Plan Discharge Patient Disposition: Home Clinical Impression: Arm pain, right Condition: Stable Prescriptions: New hydrocodone-acetaminophen 5-325 mg tablet 1 tab PO Q6H PRN (Reason: pain) Qty: 14 0RF No Action zolpidem 10 mg tablet 10 mg PO DAILY pregabalin [Lyrica] 150 cap PO AC albuterol sulfate [ProAir HFA] 90 mcg/actuation HFA aerosol inhaler 2 puff INHALATION Q6H PRN (Reason: shortness of breath or wheezing) 30 Days Qty: 18 5RF estradiol 1 mg tablet 1 mg PO TID 90 Days Qty: 270 1RF lorazepam 1 mg tablet 1 mg PO TID PRN (Reason: anxiety) 30 Days Qty: 90 2RF lactulose 10 gram/15 mL (15 mL) solution 20 g PO BID PRN (Reason: constipation) Qty: 600 2RF pantoprazole 40 mg tablet,delayed release (DR/EC) See Rx Instructions .ROUTE .COMPLEX Qty: 90 1RF Dose Instruction: Take 1 tablet by mouth once daily Rx Instructions: Take 1 tablet by mouth once daily fluticasone propionate 50 mcg/actuation spray,suspension See Rx Instructions .ROUTE .COMPLEX Qty: 16 4RF Dose Instruction: Use 1 spray(s) in each nostril once daily Rx Instructions: Use 1 spray(s) in each nostril once daily sertraline [Zoloft] 100 mg Tablet 100 mg PO DAILY Vitamin B-12 5,000 mcg Tablet, Sublingual 5,000 mcg SUBLINGUAL DAILY Discharge Orders: Discharge ED (Routine); Ordered 05/13/23 Ordered By: Marita Weaver Referrals: Harpreet Kent DO [Primary Care Provider] - 4-7 days Discharge Diet: Advance as tolerated Discharge Activity: Resume usual activity Patient Instructions: Arm Pain (ED) Coding Level of Care Code ED Recovery Coach for Carmen Steen
--- NOTE | 2023-05-13 15:40 | ECG_ITS ---
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 Measurements Intervals [place] Rate: 70 P: 50 MS: 164 QRS: 25 QRSD: 89 T: 41 QT: 378 QTc: 410 Interpretive Statements SINUS RHYTHM Compared to ECG 10/21/2016 20:24:01 No significant changes Electronically Signed On 05-13-2023 16:06:08 ANIMAL TAXONOMIST by Pasha Lopez M.D. [id number]
[2023-05-13] MEDS: HYDROcodone-acetaminophen 5-325 mg Tablet 1 TAB PO (16:00)
[2023-05-13 16:07] LABS: Basophils % 0.3 %; Eosinophils # 0.1 10^3/uL (0.0-0.8); Eosinophils % 1.3 %; Lymphocytes # 2.2 10^3/uL (0.8-4.8); Lymphocytes % 30.5 %; Mean Corpuscular HGB Conc 35.3 g/dL (30-55); Mean Corpuscular Hemoglobin 31.7 pg (27-33); Mean Corpuscular Volume 89.8 fl (85-98); Mean Platelet Volume 10.1 fL (7.4-10.4); Monocytes # 0.5 10^3/uL (0.2-0.9); Monocytes % 7.3 %; Neutrophils # 4.29 10^3/uL (1.8-7.7); Neutrophils % 60.3 %; Nucleated Red Blood Cells % 0 %; Platelet Count 158 10^3/cmm (157-399); Red Blood Count 4.23 10^6/uL (3.85-5.65); Red Cell Distribution Width 12.6 % (12.1-15.1); White Blood Count 7.11 10^3/uL (3.29-11.43)
[2023-05-13 16:26] LABS: Troponin(5th) Baseline < 6 ng/L (0-10)
[2023-05-13 16:28] LABS: Anion Gap 13.8 (5-19); Blood Urea Nitrogen 21 mg/dL (8-23); Calcium 8.8 mg/dL (8.5-10.5); Carbon Dioxide 24 mmol/L (22-29); Chloride 105 mmol/L (98-107); Glucose 101 mg/dL (65-115); Osmolality Calculated 291 mOsm/kg (285-295); Potassium 3.8 mmol/L (3.5-5.1); Sodium 139 mmol/L (136-145)
[2023-05-13 16:35] VITALS: PULSE 97; O2SAT 98
== END 2023-05-13 16:35 | disposition home or self-care (01) ==
PROVIDERS: Emergency Provider Emergency Medicine; PCP Electrodiagnostic Medicine
DX: M79.601 Pain in right arm (principal); Z87.891 Personal history of nicotine dependence; Z85.038 Personal history of other malignant neoplasm of large intestine; Z85.44 Personal history of malignant neoplasm of other female genital organs; Z85.048 Personal history of other malignant neoplasm of rectum, rectosigmoid junction, and anus
CPT/HCPCS: 71045; 80048; 84484; 85025; 93005; 99285

== ENCOUNTER 2023-06-26 08:45 | Outpatient (CLI) | payer MEDICARE, SELFPAY ==
--- NOTE | 2023-06-26 08:54 | MM_ITS ---
WS: [id number] DIAGNOSTIC BILATERAL DIGITAL BREAST TOMOSYNTHESIS MAMMOGRAPHY WITH CAD HISTORY: ABNORMAL MAMMO COMPARISON: 12/16/2021, 06/30/2021, 06/28/2021 and 04/30/2020 TECHNIQUE: Bilateral craniocaudad, mediolateral oblique, and mediolateral views are submitted with to mosynthesis and SM. Magnification views LEFT breast. Computer aided detection utilized. Breast composition: There are scattered areas of fibroglandular density. Magnification views are perf ormed of the calcifications in the LEFT breast. The most recent study for comparison is 12/16/2021. Si nce that time there has been no significant change in appearance of these calcifications. There are s till groups of calcifications in the LEFT breast which are stable. No mass. IMPRESSION: MM/[place] [id number] BI-RADS: 2-Benign FOLLOW UP: 1 Year Follow-up Patient to return to annual screening mammography.
== END 2023-06-26 08:46 | disposition home or self-care (01) ==
LOC: RAD 08:46
PROVIDERS: PCP Electrodiagnostic Medicine; Visit Provider Electrodiagnostic Medicine
DX: Z12.31 Encounter for screening mammogram for malignant neoplasm of breast (principal)
CPT/HCPCS: 77062; G0279

== ENCOUNTER 2023-08-14 10:35 | Outpatient (CLI) | payer MEDICARE, SELFPAY ==
--- NOTE | 2023-08-14 10:41 | CTR_ITS ---
PROCEDURE INFORMATION: Exam: CT Chest Without Contrast; Diagnostic Exam date and time: 08/14/2023 10:48 AM Age: 62 years old Clinical indication: Condition or disease; Lung condition and disease; Copd; Complications not specified; Primary cancer: Collorectal, vaginal TECHNIQUE: Imaging protocol: Diagnostic computed tomography of the chest without contrast. Radiation optimization: All CT scans at this facility use at least one of these dose optimization techniques: automated exposure control; mA and/or kV adjustment per patient size (includes targeted exams where dose is matched to clinical indication); or iterative reconstruction. COMPARISON: 1. CT angio chest w abd pel w con 02/06/2019 2:[address] abdomen pelvis w con* [id number] 10/06/2022 8:06 PM RADIATION DOSE METRICS: Total DLP (mGy-cm): 306.67 FINDINGS: Lungs: Mild upper lung predominant emphysematous change. Stable [id number]-[id number]-[id number]-left apical pleural-parenchymal thickening. Mild patchy right upper greater than middle lobe ground-glass attenuation. Mild right lower lung subpleural reticulation likely represents atelectasis or scar. Pleural spaces: No pleural effusion or pneumothorax. Heart: Unremarkable. No cardiomegaly. No pericardial effusion. Coronary arteries: No coronary artery calcification. Lymph nodes: Mildly prominent mediastinal lymph nodes with index right para-aortic node measuring 6 mm in the short axis on axial image 24 of series 3 are suspected to be reactive. Vasculature: Mild systemic atherosclerotic calcification without aortic aneurysm. Aberrant right subclavian artery. Stable peripherally calcified subsegmental right lower lobe artery. Bones/joints: No acute fracture. No aggressive osteolytic or blastic lesion. Minimal degenerative change along the spine. Soft tissues: Unremarkable. Other findings: Multiple mesh plugs project over the anterior upper abdomen on prefabricator views. CT/CT chest wo con [id number] IMPRESSION: 1. Mild right upper and middle lobe ground-glass opacification may be infectious or inflammatory. 2. Mildly prominent mediastinal lymph nodes are nonspecific but suspected reactive. COMMENTS: The presence of pulmonary emphysema on CT is an independent risk factor for lung cancer. In the absence of a history or active diagnosis of lung cancer, it is recommended that this patient with emphysema be evaluated for enrollment in a low dose CT lung cancer screening program.
== END 2023-08-14 10:36 | disposition home or self-care (01) ==
LOC: RAD 10:36
PROVIDERS: PCP Electrodiagnostic Medicine; Visit Provider Electrodiagnostic Medicine
DX: J44.9 Chronic obstructive pulmonary disease, unspecified (principal)
CPT/HCPCS: 71250

== ENCOUNTER 2023-12-18 10:17 | Outpatient (CLI) | payer MEDICARE, SELFPAY ==
--- NOTE | 2023-12-18 10:21 | CT_ITS ---
WS: [id number] CT NECK TECHNIQUE: Contrast-enhanced CT of the neck with coronal and sagittal reformatted images. CLINICAL INFORMATION: CHRONIC LARYNGITIS/DYSPHONIA/PAIN IN THROAT COMPARISON: None. DLP: 147.[address] scans at [facility] use at least one of these dose optimization techniques: automated e xposure control; mA and/or kV adjustment per patient size (includes targeted exams where dose is matc hed to clinical indication); or iterative reconstruction. FINDINGS: Mastoid air cells are well aerated. Paranasal sinuses are well aerated. Submandibular glands are normal. Parotid glands are normal. No cervical adenopathy. No evidence of bell praglottic or glottic mass. Normal subglottic airway. Thyroid gland appears normal. Aberrant RIGHT subclavian artery with a retroesophageal course. Mild carotid bulb calcification. RIGH T upper lobe opacity measuring 3.0 cm appears similar to 08/14/2023. Associated fibrosis in the upper lobes. This can be followed up with chest CT. CT/CT neck w con* [id number] IMPRESSION: 1. No evidence of supraglottic or glottic mass. 2. Apparent RIGHT subclavian artery with a retroesophageal course typically as ymptomatic but can in a minority of cases be associated with dysphagia 3. Normal salivary glands. 4. No cervical lymphadenopathy. 5. Fibrotic opacity RIGHT upper lobe appears stable compared to previous. This can be followed up with chest CT.
[2023-12-18 11:01] LABS: Blood Urea Nitrogen 19 mg/dL (8-23); Glomerular Filtration Rate 55.6 mL/min (90-130)
[2023-12-18] MEDS: iohexol 350 mg/mL 500 mL Btl (per mL) IV (11:14)
== END 2023-12-18 10:18 | disposition home or self-care (01) ==
LOC: RAD 10:18
PROVIDERS: PCP Electrodiagnostic Medicine; Visit Provider Otolaryngology
DX: J37.0 Chronic laryngitis (principal); R49.0 Dysphonia
CPT/HCPCS: 70491; 82565; 84520; Q9967

== ENCOUNTER 2024-01-25 08:50 | Outpatient (CLI) | payer MEDICARE, SELFPAY ==
--- NOTE | 2024-01-25 08:52 | FL_ITS ---
WS: [email or web address] Examination: FL barium swallow [id number] Reason for Exam: CHRONIC LARYNGITIS/DYSPHONIA Date: 01/25/2024 Comparison: None. Findings: A double contrast esophagram was performed Contrast passes freely through the esophagus into the stomach. No stricture or diverticulum is identi fied. No dominant hiatal hernia was identified. 6 video runs were obtained. The dap is 20.448 dG/sq cm. 81 seconds of fluoroscopy were utilized. FL/FL barium swallow [id number] Impression: Generally unremarkable esophagram.
== END 2024-01-25 08:51 | disposition home or self-care (01) ==
PROVIDERS: PCP Electrodiagnostic Medicine; Visit Provider Specialist
DX: J37.0 Chronic laryngitis (principal)
CPT/HCPCS: 74220

== ENCOUNTER 2024-01-28 10:42 | Outpatient (CLI) | payer MEDICARE, SELFPAY ==
--- NOTE | 2024-01-28 10:46 | FL_ITS ---
WS: [email or web address] FL barium swallow modifd [id number] REASON FOR EXAM: Other dysphagia FLUOROSCOPY TIME: 1min [id number] # OF SPOT FILMS: 0 FINDINGS: The examination was performed under the supervision of the speech therapy department. With the patient in the sitting upright lateral projection the swallowing of multiple consistencies o f barium was monitored fluoroscopically and video recorded. A detailed report of the swallowing will be rendered by the speech therapy department. There was some delay in the movement of the barium tablet through the distal esophagus however an eso phagram from 01/25/2024 demonstrates this region to be normal. FL/FL barium swallow modifd [id number] IMPRESSION: Modified barium swallow as above.
== END 2024-01-28 10:43 | disposition home or self-care (01) ==
LOC: RAD 10:42
PROVIDERS: PCP Electrodiagnostic Medicine; Visit Provider Specialist
DX: R13.19 Other dysphagia (principal)
CPT/HCPCS: 74230; 92611

== ENCOUNTER 2024-03-20 14:07 | Outpatient (CLI) | payer MEDICARE, SELFPAY ==
--- NOTE | 2024-03-20 14:09 | MR_ITS ---
WS: [email or web address] MRI HEAD WITH CONTRAST TECHNIQUE: Sagittal T1, T2 axial, T2 axial FLAIR, axial susceptibility weighted imaging, axial diffus ion weighted images, and coronal T2 images were obtained. Pre and post-T1 axial and post T1 coronal i mages. ADC and FSPGR images. CLINICAL INFORMATION: DIZZINESS COMPARISON: MRI 2021 FINDINGS: Some images degraded by motion. No evidence of restricted diffusion to suggest acute ischemia. Ventricular system and basal cisterns are patent. Mild small vessel changes. Mild parenchymal volume loss. Normal posterior fossa. Normal vascular flow voids at the skull base. No extra-axial fluid collection s. No evidence of mass or mass effect. Paranasal sinuses and mastoid air cells are well aerated. Norm al optic chiasm and pituitary infundibulum. Mild symmetric atrophy temporal lobes and hippocampal for mations. No abnormal gadolinium enhancement. Normal dural venous sinuses. MR/MR head wo/w con [id number] IMPRESSION: Some images degraded by motion. 1. No evidence of restricted diffusion to suggest acute ischemia. 2. Mild small vessel changes with mild parenchymal volume loss worse in the fr ontal lobes similar to previous. 3. No abnormal gadolinium enhancement. No evidence of enhancing metastatic dis ease. 4. No hemosiderin on susceptibly weighted images. 5. No other acute findings.
[2024-03-20] MEDS: gadobenate dimeglumine 20 mL vial IV (15:12)
== END 2024-03-20 14:08 | disposition home or self-care (01) ==
LOC: RAD 14:08
PROVIDERS: PCP Electrodiagnostic Medicine; Visit Provider Electrodiagnostic Medicine
DX: R42 Dizziness and giddiness (principal)
CPT/HCPCS: 70553

== ENCOUNTER 2024-06-27 09:38 | Outpatient (CLI) | payer MEDICARE, SELFPAY ==
--- NOTE | 2024-06-27 | MM_ITS ---
WS: [email or web address] Bilateral screening 3D tomosynthesis digital mammogram, 06/27/2024 9:44 AM Clinical Data: ANNUAL SCREENING Comparison: 06/26/2023, 12/16/2021, 06/30/2021, 06/28/2021, 04/30/2020, 12/07/2015. Findings: No spiculated masses or clustered calcifications are seen. There are no secondary signs of carcinoma. MM/MM scr BI tomosynthesis [id number] Impression: Negative bilateral mammogram unchanged. Recommend annual screening mammograms. BIRADS: 1 - Negative. FOLLOW UP: 1 Year Follow-up DENSITY: There are scattered areas of fibroglandular density. The CAD cafeteria or lunchroom checker was used
== END 2024-06-27 09:39 | disposition home or self-care (01) ==
PROVIDERS: PCP Electrodiagnostic Medicine; Visit Provider Electrodiagnostic Medicine
DX: Z12.31 Encounter for screening mammogram for malignant neoplasm of breast (principal); R92.323 Mammographic fibroglandular density, bilateral breasts
CPT/HCPCS: 77063; 77067

== ENCOUNTER 2025-01-27 10:50 | Outpatient (CLI) | payer MEDICARE, SELFPAY ==
--- NOTE | 2025-01-27 10:56 | USCV_ITS ---
Juhi Drew Age: 64 Gender: F : 1960 Exam Date: 01/27/2025 11:16 Ordering Phys: Harpreet Kent DO Technologist: Exam [place] [facility] [place]: cp sob BP: / HR: 64 Rhythm: Sinus Technical Quality: Adequate MEASUREMENTS (Male / Female) Normal Values 2D ECHO LV Diastolic Diameter PLAX 4.3 cm 4.2 - 5.9 / 3.9 - 5.3 cm IVS Diastolic Thickness 0.9 cm 0.6 - 1.0 / 0.6 - 0.9 cm IVS Systolic Thickness 1.5 cm LVPW Diastolic Thickness 1.0 cm 0.6 - 1.0 / 0.6 - 0.9 cm LVPW Systolic Thickness 1.7 cm LVOT Diameter 2.2 cm LV Ejection Fraction 2D Teich 66.7 % LV Ejection Fraction MOD 4C 69.1 % LV Ejection Fraction MOD 2C 70.6 % LV Ejection Fraction 2C AL 70.3 % LA Diameter 3.7 cm RA Systolic Volume 4C AL 39.0 ml RA Systolic Volume 4C MOD 38.7 ml Aorta at Sinotubular Diameter 2.8 cm IVC Diameter 1.4 cm M-MODE LA Ao Ratio MM 1.2 AV Cusp Separation MM 2.1 cm DOPPLER AV Peak Velocity 303.7 cm/s LVOT Peak Velocity 95.0 cm/s AV Area Cont Eq vti 2.8 cm squared AV Area Cont Eq pk 1.2 cm squared MV Peak Velocity 116.0 cm/s MV Area PHT 3.0 cm squared Mitral E to A Ratio 0.9 TR Peak Velocity 266.0 cm/s TR Peak Gradient 28.3 mmHg PV Peak Velocity 114.0 cm/s FINDINGS Left Ventricle Normal left ventricular size, systolic function and wall thickness, with no regional wall motion abnormalities. Left ventricular ejection fraction is 66% . Normal diastolic function. Right Ventricle Normal right ventricular size and systolic function. Normal right ventricular systolic pressure. Right Atrium Normal right atrial size. Left Atrium Normal left atrial size. Mitral Valve Mild mitral valve regurgitation. Aortic Valve Mild aortic valve regurgitation. Tricuspid Valve Mild tricuspid valve regurgitation. Pulmonic Valve No pulmonary valve stenosis. No pulmonary valve regurgitation. Pericardium No pericardial effusion. Aorta Normal size aortic root and proximal ascending aorta. IVC Normal inferior vena cava. CONCLUSIONS 1. Normal biventricular size and systolic function. LV EF 66%. 2. Mild aortic valve regurgitation. 3. Mild mitral valve regurgitation. 4. Mild tricuspid valve regurgitation. Emir Chavez MD, FACC (Electronically Signed) Final Date: 28 January 2025 16:32 S
== END 2025-01-27 10:51 | disposition home or self-care (01) ==
LOC: RAD 10:51
PROVIDERS: PCP Electrodiagnostic Medicine; Visit Provider Electrodiagnostic Medicine
DX: I08.3 Combined rheumatic disorders of mitral, aortic and tricuspid valves (principal); R06.00 Dyspnea, unspecified
CPT/HCPCS: 93306

== ENCOUNTER → 2025-02-26 09:08 | Outpatient (BNVA) | payer MEDICARE, SELFPAY | PROVIDERS: PCP Electrodiagnostic Medicine; Referring Provider Electrodiagnostic Medicine; Visit Provider Internal Medicine | DX: J44.9 Chronic obstructive pulmonary disease, unspecified (principal); Z87.891 Personal history of nicotine dependence; J96.10 Chronic respiratory failure, unspecified whether with hypoxia or hypercapnia | CPT/HCPCS: 36415; 82103; 85025; 99204; Q3014 ==

== ENCOUNTER 2025-03-11 08:51 | Outpatient (CLI) | payer MEDICARE, SELFPAY ==
--- NOTE | 2025-03-11 09:00 | CTR_ITS ---
PROCEDURE INFORMATION: Exam: CT Chest Without Contrast, Diagnostic, High Resolution Exam date and time: 03/11/2025 9:09 AM Age: 64 years old Clinical indication: Dyspnea; Prior surgery; Surgery date: 6+ months; Surgery type: Port in/out; HX of colorectal and vaginal cancer TECHNIQUE: Imaging protocol: Diagnostic computed tomography of the chest without contrast. Exam was performed with high resolution protocol. Radiation optimization: All CT scans at this facility use at least one of these dose optimization techniques: automated exposure control; mA and/or kV adjustment per patient size (includes targeted exams where dose is matched to clinical indication); or iterative reconstruction. COMPARISON: CT chest wo con [id number] 08/14/2023 10:48 AM RADIATION DOSE METRICS: Total DLP (mGy-cm): 1057.35 FINDINGS: Lungs: Again seen is the sessile apical plaque like probable scarring at the right lung apex best visualized on coronal imaging, stable. There is a new primarily solid nodule within the right upper lobe measuring 10 x 11 mm on image 13 of series 4. The previously defined patchy subtle ground-glass opacity within the peripheral aspect of the right upper lobe has resolved. There is a calcified nodule within the left lower lobe. There are a few small scattered 2 and 3 mm solid pulmonary nodules within the lungs. There is no bronchiectasis. There is no bronchial wall thickening. There is no endobronchial lesion. There is no significant cystic change. There is no reticular interstitial thickening. Pleural spaces: Unremarkable. No pneumothorax. No pleural effusion. Heart: Unremarkable. No cardiomegaly. No pericardial effusion. Vasculature: Unremarkable. No aortic aneurysm. Lymph nodes: There are small subcentimeter/subthreshold paratracheal mediastinal lymph nodes. Bones/joints: Unremarkable. No acute fracture. Soft tissues: Unremarkable. CT/CT chest w/o HI-Res(Pulm Only) IMPRESSION: 1. New solid nodule within the right upper lobe 2. Resolution of prior ground-glass right upper lobe opacity 3. Right apical pleural-parenchymal sessile scarring, stable 4. Scattered small 2 and 3 mm nonspecific pulmonary nodules Consider non-emergent PET/CT or tissue sampling. (Reference: Sendy) REFERENCES: Sendy Nair, et al. Guidelines for Management of Incidental Pulmonary Nodules Detected on CT Images: From the Fleischner Society 2017. Radiology. 2017;284(1):228-243.
== END 2025-03-11 08:52 | disposition home or self-care (01) ==
LOC: RAD 08:53
PROVIDERS: PCP Electrodiagnostic Medicine; Visit Provider Internal Medicine
DX: J96.10 Chronic respiratory failure, unspecified whether with hypoxia or hypercapnia (principal); R91.1 Solitary pulmonary nodule; R91.8 Other nonspecific abnormal finding of lung field; J94.8 Other specified pleural conditions
CPT/HCPCS: 71250

== ENCOUNTER → 2025-03-16 15:05 | Outpatient (BNVA) | payer MEDICARE, SELFPAY | PROVIDERS: PCP Electrodiagnostic Medicine; Visit Provider Internal Medicine | DX: R91.1 Solitary pulmonary nodule (principal); J44.9 Chronic obstructive pulmonary disease, unspecified; R91.8 Other nonspecific abnormal finding of lung field; Z87.891 Personal history of nicotine dependence | CPT/HCPCS: 99214; Q3014 ==

== ENCOUNTER → 2025-03-17 10:50 | Outpatient (BNVA) | payer MEDICARE, SELFPAY | PROVIDERS: PCP Electrodiagnostic Medicine; Referring Provider Electrodiagnostic Medicine; Visit Provider Internal Medicine Cardiovascular Disease | DX: R07.9 Chest pain, unspecified (principal); I34.0 Nonrheumatic mitral (valve) insufficiency; I35.1 Nonrheumatic aortic (valve) insufficiency; R06.02 Shortness of breath; R06.09 Other forms of dyspnea | CPT/HCPCS: 36415; 83880; 93005; 99204 ==

== ENCOUNTER 2025-03-20 12:44 | Outpatient (CLI) | payer MEDICARE, SELFPAY ==
--- NOTE | 2025-03-20 13:00 | PETR_ITS ---
PROCEDURE INFORMATION: Exam: PET/CT Skull Base to Mid-thigh Exam date and time: 03/20/2025 1:45 PM Age: 64 years old Clinical indication: Abnormal findings; Right upper lobe lung nodule; Prior surgery; Surgery date: 6+ months; Surgery type: Port in/out; HX of colon and vaginal cancer LABS AND CLINICAL REPORTS: Glucose: 111 mg/dl Treatment strategy for malignancy (PET staging): Initial Staging (PI) TECHNIQUE: Imaging protocol: Following at least four-hour fasting and following the injection of radiopharmaceutical, low dose CT images were obtained. Then, PET images were obtained. Attenuation corrected images were constructed using the CT scan. Fused images of PET and CT were reviewed. The standardized uptake values (SUV) reported below are maximum values within a region of interest, expressed in gm/ml. Exam includes orbital meatal line to mid-thigh. SUV normalization method: BodyWeight Radiopharmaceutical: 11.32 mCi F-18 FDG (Fluorodeoxyglucose), IV. Time of imaging post radiopharmaceutical administration: 49 minutes Injection site: right ac COMPARISON: CT chest w/o HI-Res(Pulm Only) 03/11/2025 9:09 AM FINDINGS: Brain: Visualized brain has normal physiologic uptake. Pharynx: No abnormal uptake. Larynx: No abnormal uptake. Lungs, pleura and trachea: FDG avid right upper lobe nodule measuring 1.1 cm with SUV max of 2.2. Mildly avid right apical pleural-parenchymal scarring measuring 3.4 x 1.3 cm with SUV max 2.7. Heart: Normal physiologic uptake. Mediastinal space: No abnormal uptake. Liver: No abnormal uptake. Gallbladder and biliary ducts: No abnormal uptake. Pancreas: No abnormal uptake. Spleen: No abnormal uptake. Adrenal glands: No abnormal uptake. Kidneys and ureters: Normal physiologic uptake. Stomach and bowel: No abnormal uptake. Left lower quadrant colostomy. Vasculature: No abnormal uptake. Lymph nodes: No abnormal uptake. No lymphadenopathy in the head, neck, chest, abdomen, pelvis, and extremities. Skeleton: No abnormal uptake in the visualized axial and appendicular skeleton. Soft tissues: No abnormal uptake in the visualized head, neck, chest, abdomen, pelvis, and extremities. Postsurgical changes status post ventral hernia repair. METRICS: Mediastinal blood pool: SUV max = 3.0 Liver uptake: SUV max = 3.8 PET/PET skull to thigh INIT [id number] IMPRESSION: FDG avid right upper lobe nodule measuring 1.1 cm, concerning for malignancy versus metastatic disease.
== END 2025-03-20 12:45 | disposition home or self-care (01) ==
LOC: RAD 12:44
PROVIDERS: PCP Electrodiagnostic Medicine; Visit Provider Internal Medicine
DX: R91.8 Other nonspecific abnormal finding of lung field (principal); R91.1 Solitary pulmonary nodule; J98.4 Other disorders of lung; Z93.3 Colostomy status; Z98.890 Other specified postprocedural states
CPT/HCPCS: 78815; A9552

== ENCOUNTER 2025-04-01 06:05 | Outpatient (CLI) | payer MEDICARE, SELFPAY ==
--- NOTE | 2025-04-01 | ECG_ITS ---
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 Interpretive Statements Procedure: A total of 0.4 mg of Lexiscan was infused over 20 seconds. The stress phase was continued for a total of 5 minutes. Sestamibi was injected 20 seconds after the Lexiscan infusion. Findings:The patient's resting blood pressure was 147/74 mmHg with a heart rate of 68 bpm. After Lexiscan infusion patient's blood pressure decreased to 126/75 mmHg and the heart rate increased to a maximum of 95 bpm. At the end of recovery the patient's blood pressure was 137/75 mmHg with a heart rate of 81 bpm. The resting EKG showed normal sinus rhythm with no ST or T wave abnormalities. There were no new ST or T wave abnormalities with stress test or in recovery. No arrhythmias were present. Conclusion: 1. Normal EKG response to Lexiscan infusion 2. No Lexiscan induced chest pain or cardiac arrhythmia. 3. Normal blood pressure and heart rate response. 4. Nuclear myocardial perfusion scan pending; see separate report. Electronically Signed On 04-01-2025 19:14:35 [employer]AS[employer] MANAGEMENT SALES CONSULTANT by Emir Chavez M.D. [email or web address]
[2025-04-01 06:16] VITALS: BMI 28.2
--- NOTE | 2025-04-01 06:33 | NMCV_ITS ---
NM agus perf SPECT r/s* [id number] Juhi Drew Age: 64 Gender: F : 1960 Exam Date: 04/01/2025 07:13 Ordering Phys: Emir Chavez MD ([email or web address]) Technologist: JOSEY King Exam Location: [facility] Indications: cp STRESS TEST Please see separate stress test report in [facility] for full findings IMAGE PROTOCOL Rest/Stress 1 Lexiscan Day Radiopharmaceutical Dose (mCi) Administration Site Administered by Rest: Tc-99m 10.9 IV Malaika Pastor, HOME CARE RN Sestamibi Stress:Tc-99m 32.8 IV Malaika Lunae, HOME CARE RN Sestamibi Rest: 01-Apr-2025 60 Discovery 630 Stress: 01-Apr-2025 30 Discovery 630 0.4mg Lexiscan.supine position only as patient was unable to lay prone. SPECT RESULTS Technical Quality: Good Raw Data Analysis: Normal Image Corrections: No attenuation or motion correction applied Summed Stress Score: 5 Summed Rest Score: 7 Summed Difference Score: 0 PERFUSION FINDINGS There is a small area of moderately reduced tracer counts in the apical lateral wall segment on both the rest and stress images. There is no reversibility. FUNCTIONAL RESULTS (calculated via Gated SPECT) Stress Image LV EF (%): 80 Stress EDV (mL):61 TID: 1.13 Stress ESV (mL):12 FUNCTIONAL FINDINGS: There is normal left ventricular systolic function. IMPRESSIONS 1. There is a small infarction versus artifact in the apical lateral wall segment. There is no ischemia. 2. Normal left ventricular systolic function, ejection fraction greater than 75%. Emir Chavez MD, FACC (Electronically Signed) Final Date: 01 April 2025 18:29 S
[2025-04-01 08:37] VITALS: BP 137/75; PULSE 84
== END 2025-04-01 06:06 | disposition home or self-care (01) ==
LOC: CDL 06:06
PROVIDERS: PCP Electrodiagnostic Medicine; Visit Provider Internal Medicine Cardiovascular Disease
DX: R07.9 Chest pain, unspecified (principal); I63.81 Other cerebral infarction due to occlusion or stenosis of small artery
CPT/HCPCS: 36415; 78452; 93017; 96374; A9500; J2785

== ENCOUNTER 2025-04-02 09:34 | Emergency (ER) | payer MEDICARE, SELFPAY ==
--- NOTE | 2025-04-02 09:35 | XR_ITS ---
WS: [id number] Exam: XR chest 1V portable [id number] Date/Time of Exam: 04/02/2025 9:35 AM Reason For Exam: cp Comparison 12/25/2024. Lungs are clear and fully inflated. Normal cardiomediastinal silhouette and regional bony elements. XR/XR chest 1V portable [id number] IMPRESSION: 1. Negative chest.
[2025-04-02 09:36] VITALS: BP 136/88; PULSE 89; RESP 18; TEMP 36.8; O2SAT 96
--- NOTE | 2025-04-02 09:39 | ECG_ITS ---
[facility] Test Date: 2025-04-02 Pat Name: Juhi Drew Department: Room: Gender: Female Ultrasonic Solderer: : 1960 Requested By: Marita Weaver Order Number: [id number] Nick MD: Pasha Lopez M.D. Measurements Intervals [place] Rate: 90 P: 35 WA: 138 QRS: 4 QRSD: 80 T: 22 QT: 346 QTc: 424 Interpretive Statements SINUS RHYTHM POSSIBLE LEFT ATRIAL ENLARGEMENT [-0.1mV P-WAVE IN V1/V2] Compared to ECG 03/17/2025 11:01:33 No significant changes Electronically Signed On 04-03-2025 13:11:46 DATAWAREHOUSE DEVELOPER by Pasha Lopez M.D. [email or web address] [id number]
--- OUTSIDE RECORDS SUMMARY | 2025-04-02 09:39 | XMS_ITS | Encounter Summary ---
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) Vaginal bleeding, abnormal Procedures PET TUMOR IMG W CT SKL BSE MID THG Vinod Pierre MD [address] [id number] [place] [address] Phone: tel: fax: [facility] Nuclear Medicine [address] [place] [phone] Phone: tel: fax: Referral ID Status Reason Start Date Expiration Date V isits Requested Visits Authorized [id number] Closed [facility] TO SCHEDULE (SGF) 08/11/2019 10/09/2019 1 1 Encounter Details Date Type Department Care Team (Latest Contact Info) Description 08/21/2019 Ancillary Orders [facility] Pre-Registration [place] CALL TO MAKE APPOINTMENT ONLY [address] [place] [address] Vinod Pierre MD [address] [phone] [place] [address] Malignant neoplasm of anal canal (CMS/HCC); Squamous cell carcinoma of anus (CMS/HCC); RVF (rectovaginal fistula); Vaginal bleeding, abnormal Social History Tobacco Use Types Packs/Day Years Used Date Smoking Tobacco: Never Assessed Comments Unknown Sex and Gender Information Value Date Recorded Sex Assigned at Not on file Legal Sex Female 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 No / Unsure 08/22/2019 11:23 AM CDT documented as of this encounter Plan of Treatment Not on file documented as of this encounter Results * PET TUMOR IMG W CT SKL BSE MID THG (08/27/2019 8:42 AM CDT) Anatomical Region Laterality Modality Nuclear Medicine 08/27/2019 8:42 AM CDT Impressions 08/27/2019 7:35 PM CDT IMPRESSION: Abnormal examination. 1. Changes of previous anorectal surgery with fat packing. There is mild hypermetabolism in the region of the vaginal introitus along the left lateral vaginal wall with recurrent disease not excluded. Correlation with direct visualization and soft tissue sampling recommended. 2. No evidence of active distant metastasis. This laboratory has been accredited by the Intersocietal Commission for the Accreditation of Nuclear Medicine Laboratories (ICANL). [id number] Narrative 08/27/2019 7:35 PM CDT Radionuclide PET Metabolic Tumor Imaging with CT Attenuation Correction and Anatomic Localization, Limited Examination: Radiopharmaceutical: G-26-Pboemuukpxzxetduqh Dose: 11.9 mCi right AC IV Time of Injection: 07:11 hrs BMI: None reported Clinical Indication: Initial treatment strategy to evaluate squamous cell carcinoma of the anus. Evaluate for recurrence at the rectovaginal septum. FDG (U-99-Faccdlormrubsmqlgt) PET imaging was performed at 08:07 hrs approximately one hour following intravenous infusion of the radiopharmaceutical agent using an integrated 16-slice PET/CT scanner. A noncontrast CT scan was performed for attenuation correction of PET data and for anatomic localization. No contrast was administered. Imaging was performed from the skull base to mid thigh levels with subsequent reconstruction of full trunk, orthogonal view slices in transverse, sagittal, and coronal projections which were reviewed along with dynamic multiimage planar and non attenuation corrected sagittal views. Blood glucose at the time of tracer injection was 83 mg/dl with normal biodistribution of tracer. The quality of this examination is acceptable with regards to count density, processed images, data display and lack of important artifacts (including but not limited to motion and attenuation artifacts). Comparison: 06/04/2018, 12/05/2016. Blood pool: Current max SUV 2.8, previous max SUV 2.1 Liver: Current max SUV 3.4, previous max SUV 2.5 HEAD/NECK: No concerning uptake within the visualized brain parenchyma. No hypermetabolic cervical lymph nodes. CHEST: No hypermetabolic thoracic lymph nodes. There is scarring at the lung apices demonstrating low-level FDG uptake as before which is likely infectious or inflammatory in nature. No focal hypermetabolic pulmonary lesions. No pleural fluid collection. ABDOMEN/PELVIS: No hypermetabolic hepatic lesions. Gallbladder and the biliary system is unremarkable. The pancreas, spleen, adrenal glands and kidneys unremarkable. There is atherosclerotic calcification of the abdominal aorta. IVC is unremarkable. No hypermetabolic lymph nodes. No ascites. There is a left lower quadrant endostomy. There is physiologic distribution of radiotracer within the bowel. Changes of a previous anorectal surgery with fat packing. There is no hypermetabolism within the operative bed to suggest area of local recurrence. There is some mild increased FDG uptake in the region of the vaginal introitus with max SUV of 3.3 and left lateral vaginal wall which appears mildly thickened measuring 7 mm with max SUV of 2.7 (series 3 image 305). Bilateral adnexa unremarkable. There is some stranding within the right inguinal region with low-level FDG uptake. There are no hypermetabolic lymph nodes within the abdomen or the pelvis. MUSCULOSKELETAL: No hypermetabolic osseous lesions. There is degenerative uptake of the right articular facet at L5-S1. Procedure Note Nicholas Leroy MD - 08/27/2019 Radionuclide PET Metabolic Tumor Imaging with CT Attenuation Correction and Anatomic Localization, Limited Examination: Radiopharmaceutical: V-37-Kmqrkfhnfemwgxwqdn Dose: 11.9 mCi right AC IV Time of Injection: 07:11 hrs BMI: None reported Clinical Indication: Initial treatment strategy to evaluate squamous cell carcinoma of the anus. Evaluate for recurrence at the rectovaginal septum. FDG (X-28-Moiynuqqwuxzjipsow) PET imaging was performed at 08:07 hrs approximately one hour following intravenous infusion of the radiopharmaceutical agent using an integrated 16-slice PET/CT scanner. A noncontrast CT scan was performed for attenuation correction of PET data and for anatomic localization. No contrast was administered. Imaging was performed from the skull base to mid thigh levels with subsequent reconstruction of full trunk, orthogonal view slices in transverse, sagittal, and coronal projections which were reviewed along with dynamic multiimage planar and non attenuation corrected sagittal views. Blood glucose at the time of tracer injection was 83 mg/dl with normal biodistribution of tracer. The quality of this examination is acceptable with regards to count density, processed images, data display and lack of important artifacts (including but not limited to motion and attenuation artifacts). Comparison: 06/04/2018, 12/05/2016. Blood pool: Current max SUV 2.8, previous max SUV 2.1 Liver: Current max SUV 3.4, previous max SUV 2.5 HEAD/NECK: No concerning uptake within the visualized brain parenchyma. No hypermetabolic cervical lymph nodes. CHEST: No hypermetabolic thoracic lymph nodes. There is scarring at the lung apices demonstrating low-level FDG uptake as before which is likely infectious or inflammatory in nature. No focal hypermetabolic pulmonary lesions. No pleural fluid collection. ABDOMEN/PELVIS: No hypermetabolic hepatic lesions. Gallbladder and the biliary system is unremarkable. The pancreas, spleen, adrenal glands and kidneys unremarkable. There is atherosclerotic calcification of the abdominal aorta. IVC is unremarkable. No hypermetabolic lymph nodes. No ascites. There is a left lower quadrant endostomy. There is physiologic distribution of radiotracer within the bowel. Changes of a previous anorectal surgery with fat packing. There is no hypermetabolism within the operative bed to suggest area of local recurrence. There is some mild increased FDG uptake in the region of the vaginal introitus with max SUV of 3.3 and left lateral vaginal wall which appears mildly thickened measuring 7 mm with max SUV of 2.7 (series 3 image 305). Bilateral adnexa unremarkable. There is some stranding within the right inguinal region with low-level FDG uptake. There are no hypermetabolic lymph nodes within the abdomen or the pelvis. MUSCULOSKELETAL: No hypermetabolic osseous lesions. There is degenerative uptake of the right articular facet at L5-S1. IMPRESSION: Abnormal examination. 1. Changes of previous anorectal surgery with fat packing. There is mild hypermetabolism in the region of the vaginal introitus along the left lateral vaginal wall with recurrent disease not excluded. Correlation with direct visualization and soft tissue sampling recommended. 2. No evidence of active distant metastasis. This laboratory has been accredited by the Intersocietal Commission for the Accreditation of Nuclear Medicine Laboratories (ICANL). [id number] us Vinod Pierre MD PE ORDERABLES Final Result documented in this encounter Visit Diagnoses Diagnosis Malignant neoplasm of anal canal (CMS/HCC) Malignant neoplasm of anal canal Squamous cell carcinoma of anus (CMS/HCC) Malignant neoplasm of anus, unspecified site RVF (rectovaginal fistula) Digestive-genital tract fistula, female Vaginal bleeding, abnormal Other specified noninflammatory disorder of vagina Malignant neoplasm of anal canal (CMS/HCC) Malignant neoplasm of anal canal Squamous cell carcinoma of anus (CMS/HCC) Malignant neoplasm of anus, unspecified site RVF (rectovaginal fistula) Digestive-genital tract fistula, female Vaginal bleeding, abnormal Other specified noninflammatory disorder of vagina documented in this encounter Care Teams Public Safety Officer Relationship Specialty Start Date End Date Sherwin Sánchez MD [address] [id number] PCP - General Family Practice 05/23/18 documented as of this encounter
--- OUTSIDE RECORDS SUMMARY | 2025-04-02 09:39 | XMS_ITS | Data Portability ---
Author Organization JOSE LUIS Mio Piña [facility], [place], [facility] Address [address] [facility] [address] [place] [address] Care Team Providers Care Freelance Graphic Designer Name Role Phone JESICA DEWEY Primary Care Provider Unavailabl e Assessment Encounter Date Assessment Date Assessment LastModified by Organization Details LastModified Time 12/25/2024 12/25/2024 Document scribed by Josh Gonzalez [employer] Or. I was present during interview and exam. I have reviewed and agree with above documentation . Dr. Jesica Dewey. [email or web address] Not available 12/25/2024 10:18:41 12/30/2024 12/30/2024 Document scribed by Josh Gonzalez [employer] Or. I was present during interview and exam. I have reviewed and agree with above documentation . Dr. Jesica Dewey. Counseled on diet, avoid snacking, avoid sugary foods, work on getting fluid off. [email or web address] Not available 12/30/2024 10:44:18 Plan of Treatment Reminders Order Date Submit Date Provider Last Modified By Organization Details Last Modified Time Details Appointments None recorded. Lab CMP, serum or plasma 2024 025 lilian Lucero [facility], [address], [place], [address], 13:57:52 CBC 2024 025 [email or web address] 47 [facility], [address], [place], [address], 13:57:52 C-reactive protein, quantitativ e, serum or plasma 2024 [employer] [facility], [address] [place] [address], [address], [place], [address], 23:07:31 ESR (erythrocyt e sedimentati on rate), blood [address] ([facility]), [address] [place], [address], 13:57:52 uric acid, serum or plasma 2024 [employer] [facility], [address] [place] [address], [address], [place], [address], 23:07:30 rf (rheumatoid factor) + anti-ccp abs, serum 2024 025 [employer] [facility], [address] [place] [address], [address], [place], [address], 10:50:37 TALAT (antinuclea r antibodies) screen, serum [email or web address] [facility], [address] [place] [address], [address], [place], [address], 10:50:37 thyrotropin , QN, serum or plasma [address], [address] [place] [address], [address], 13:57:52 Referral None recorded. Procedures arthrocente sis, aspiration and/or injection, major joint or bursa (PROC) 2024 025 [facility], [address] [place] [address] [place], [address], 5 08:31:01 Surgeries None recorded. Imaging MRI, knee, w/o contrast 2024 025 [facility], [address] [place], [address], 5 16:25:18 XR, knee, 3 view [address] ([facility]), [address] [place], [address], 5 16:17:28 XR, chest, 2 view [address] ([facility]), [address] [place], [address], 5 16:17:28 electrocard iogram [address] ([facility]), [address] [place], [address], 5 16:17:27 US, echocardiog reji 2024 025 [facility] (Scheduling Orders), [address] [place], [address], 5 09:04:56 US, duplex, venous, lower extremity, unilateral - [address] Rt leg 2024 025 [facility], [address] [place], [address], 5 08:52:44 Medication Orders Kenalog 40 mg/mL suspension for injection 2024 025 [email or web address] Not available 5 10:59:32 gabapentin 300 mg capsule 2024 025 [facility], [facility]., [address] [facility], [place], [address], 17:38:28 Patient TargetsNo targets recorded. Patient InstructionsNo instructions recorded. Reason for Referral None Reported. Results Created Date Observation Date Name Description Value Unit Range Abnormal Flag Note LastModifiedBy Organization Detail LastModifiedTime 11/12/1911/11/2024 CBC WBC 6.5 x10 4.0-10 .5 Not Available [facility] [address], [place], [address], 11/11/2024 16:54:14 11/12/1911/11/2024 CBC RBC 4.30 x10 3.50-5 .50 Not Available [facility] [address], [place], [address], 11/11/2024 16:54:14 11/12/1911/11/2024 CBC HGB 12.9 g/dL 12.0-1 6.0 Not Available [facility] [address], [place], [address], 11/11/2024 16:54:14 11/12/1911/11/2024 CBC HCT 40.2 % 37.0-4 7.0 Not Available [facility] [address], [place], [address], 11/11/2024 16:54:14 11/12/1911/11/2024 CBC MCV 93.6 fL 80.0-9 9.9 Not Available [facility] [address], [place], [address], 11/11/2024 16:54:14 11/12/1911/11/2024 CBC MCH 30.0 pg 27.0-3 2.0 Not Available [facility] [address] [facility] 1, [place], [address], 11/11/2024 16:54:14 11/12/19 25 11/11/2024 CBC MCHC 32.0 g/dL 32.0-3 6.0 Not Available [facility] [address] [facility] 1, [place], [address], 11/11/2024 16:54:14 11/12/19 25 11/11/2024 CBC RDW 14.9 % 11.5-1 4.5 high Not Available [facility] [address] [facility] [address] [address], [place], [address], 11/11/2024 16:54:14 11/12/19 25 11/11/2024 CBC plt 175.4 x10 140.0- 451.0 Not Available [facility] [address] [facility] [address] [address], [place], [address], 11/11/2024 16:54:14 11/12/19 25 11/11/2024 CBC lymphocytes % 19.8 % 20.0-5 0.0 low Not Available [facility] [address] [facility] [address] [address], [place], [address], 11/11/2024 16:54:14 11/12/19 25 11/11/2024 CBC granulcytes % 71.5 % 30.0-7 0.0 high Not Available [facility] [address] [facility] [address] [facility], [place], [address], 11/11/2024 16:54:14 11/12/19 25 11/11/2024 CBC monocytes % 6.2 % 2.0-16 .0 Not Available [facility] [address] [facility], [place], [address], 11/11/2024 16:54:14 11/12/19 25 11/11/2024 CBC granulcytes# 4.6 x10 Not Barbara ilable [facility] [address] [facility] [address], [place], [address], 11/11/2024 16:54:14 11/12/19 25 11/11/2024 CBC lymphocytes # 1.3 x10 Not Available [facility] [address] [facility] [address], [place], [address], 11/11/2024 16:54:14 11/12/19 25 11/11/2024 CBC monocytes # 0.4 x10 Not Avai lable [facility] [address] [facility] [address], [place], [address], 11/11/2024 16:54:14 11/12/19 25 11/11/2024 HBA1C hemaglobin A1C 5.6 4.2-6. 5 Not Available [facility] [address] [facility] [address], [place], [address], 11/11/2024 16:58:41 11/12/19 25 11/11/2024 CMP (FEMA LE) glucose 106.0 mg/dL 60.0-9 9.0 high Not Available [facility] [address] [facility] 1, [place], [address], 11/11/2024 17:41:44 11/12/19 25 11/11/2024 CMP (FEMA LE) BUN (blood urea nitrogen) 14.0 mg/dL 10.0-2 6.0 Not Available [facility] [address] [facility] 1, [place], [address], 11/11/2024 17:41:44 11/12/19 25 11/11/2024 CMP (FEMA LE) creatinine (serum) 1.4 mg/dL 0.4-1. 5 Not Available [facility] [address] [facility] 1, [place], [address], 11/11/2024 17:41:44 11/12/19 25 11/11/2024 CMP (FEMA LE) BUN/creatini ne ratio 10.00 ratio Not Available [facility] [address] [facility] 1, [place], [address], 11/11/2024 17:41:44 11/12/19 25 11/11/2024 CMP (FEMA LE) eGFR calculated 40.0 Not Available [facility] [address] [address], [place], [address], 11/11/2024 17:41:44 11/12/19 25 11/11/2024 CMP (FEMA LE) total protein 7.5 g/dL 6.0-8. 5 Not Available [facility] [address] [address], [place], [address], 11/11/2024 17:41:44 11/12/19 25 11/11/2024 CMP (FEMA LE) total bilirubin 0.4 mg/dL 0.2-1. 3 Not Available [facility] [address] [address], [place], [address], 11/11/2024 17:41:44 11/12/19 25 11/11/2024 CMP (FEMA LE) albumin 4.2 g/dL 3.5-5. 5 Not Available [facility] [address] [address], [place], [address], 11/11/2024 17:41:44 11/12/19 25 11/11/2024 CMP (FEMA LE) globulin 3.3 calc Not Available [facility] [address] [address], [place], [address], 11/11/2024 17:41:44 11/12/19 25 11/11/2024 CMP (FEMA LE) AST (SGOT) 28.0 U/L 0.0-46 .0 Not Available [facility] [address] [facility] 1, [place], [address], 11/11/2024 17:41:44 11/12/19 25 11/11/2024 CMP (FEMA LE) altv (SGPT) 22.0 U/L 13.0-6 9.0 normal Not Available [facility] [address] [facility], [place], [address], 11/11/2024 17:41:44 11/12/19 25 11/11/2024 CMP (FEMA LE) A/G ratio 1.3 ratio Not Available [facility] [address] [facility], [place], [address], 11/11/2024 17:41:44 11/12/19 25 11/11/2024 CMP (FEMA LE) ALP phos 65.0 U/L 30.0-1 40.0 normal Not Available [facility] [address] [facility], [place], [address], 11/11/2024 17:41:44 11/12/19 25 11/11/2024 CMP (FEMA LE) calcium 8.9 mg/dL 8.4-10 .5 Not Available [facility] [address] [facility] 1, [place], [address], 11/11/2024 17:41:44 11/12/19 25 11/11/2024 CMP (FEMA LE) sodium 139.0 mmol/ L 136.0- 145.0 Not Available [facility] [address] [facility] 1, [place], [address], 11/11/2024 17:41:44 11/12/19 25 11/11/2024 CMP (FEMA LE) potassium 4.0 mmol/ L 3.5-5. 1 Not Available [facility] [address] [facility] 1, [place], [address], 11/11/2024 17:41:44 11/12/19 25 11/11/2024 CMP (FEMA LE) chloride 107.0 mmol/ L 98.0-1 10.0 normal Not Available [facility] [address] [facility] 1, [place], [address], 11/11/2024 17:41:44 11/12/19 25 11/11/2024 CMP (FEMA LE) C02 25.0 mmol/ L 22.0-3 1.0 Not Available [facility] [address] [facility], [place], [address], 11/11/2024 17:41:44 11/12/19 25 11/11/2024 CMP (FEMA LE) anion gap 7.0 calc Not Available [facility] [address] [facility], [place], [address], 11/11/2024 17:41:44 11/12/19 25 11/11/2024 CMP (FEMA LE) osmolality 288.0 calc Not Available [facility] [address] [facility], [place], [address], 11/11/2024 17:41:44 11/12/19 25 11/11/2024 LIPID PROFI LE (FEMA LE) cholesterol 196.0 mg/dL 0.0-20 0.0 Not Available [facility] [address] [facility], [place], [address], 11/11/2024 17:41:47 11/12/19 25 11/11/2024 LIPID PROFI LE (FEMA LE) trig 92.0 mg/dL 0.0-15 0.0 Not Available [facility] [address] [facility], [place], [address], 11/11/2024 17:41:47 11/12/19 25 11/11/2024 LIPID PROFI LE (FEMA LE) HDL - direct 102.0 mg/dL >40.0 Not Available [facility] [address] [facility] 1, [place], [address], 11/11/2024 17:41:47 11/12/19 25 11/11/2024 LIPID PROFI LE (FEMA LE) VLDL - direct 18.4 mg/dL Not Available [facility] [address] [facility] 1, [place], [address], 11/11/2024 17:41:47 11/12/19 25 11/11/2024 LIPID PROFI LE (FEMA LE) LDL - direct 75.6 mg/dL 0.0-13 0.0 Not Available [facility] [address] [facility] 1, [place], [address], 11/11/2024 17:41:47 11/12/19 25 11/11/2024 TSH TSH 2.41 uIU/m L 0.49-3 .82 Not Available [facility] [address] [facility] 1, [place], [address], 11/11/2024 17:59:28 11/12/19 25 11/13/2024 C-SELENA CTIVE PROTE IN C-reactive protein 8.4 mg/L <8.0 high Not Available [employer] [facility] [address] [place], [address], 11/13/2024 09:07:10 11/12/1911/13/2024 VITAM IN B12/F OLATE , SERUM PANEL vitamin B12 299 pg/mL 200-11 00 normal Pleas e Note: Altho ugh the refer ence range for vitam in B12 is 200-1 100 pg/mL , it has been repor gabe that betwe en 5 and 10% of patie nts with value s betwe en 200 and 400 pg/mL may exper ience neuro psych iatri c and hemat ologi c abnor malit ies due to occul t B12 defic iency ; less than 1% of patie nts with value s above 400 pg/mL will have sympt oms. Not Available [facility] [address] [place], [address], 11/13/2024 09:07:11 11/12/1911/13/2024 VITAM IN B12/F OLATE , SERUM PANEL folate, serum 11.9 NG/mL normal Refer ence Range Low: <3.4 Borde rline : 3.4-5 .4 Marlen l: >5.4 Not Available [facility] [address] [address] [place], [address], 11/13/2024 09:07:11 11/12/1911/13/2024 VITAM IN D,25- OH,TO JACKIE,I A vitamin D,25-oh,tota l,ia 36 NG/mL 30-100 normal Vitam in D Statu s 25-OH Vitam in D: Defic iency : <20 ng/mL Insuf ficie ncy: 20 - 29 ng/mL Optim al: > or = 30 ng/mL For 25-OH Vitam in D testi ng on patie nts on D2-bell pplem entat ion and patie nts for whom quant itati on of D2 and D3 fract ions is requi red, the [facility] eD(TM ) 25-OH VIT D, (D2,D 3), LC/MS /MS is recom olegario d: order code [id number] (lino ents >2yrs ). See Note 1 Note 1 For addit ional infor susan bennett refer to http: //javier Hernandezia gnost ics.c om/fa q/FAQ 199 (This link is being provi ded for infor reji parmar/ tessa mata purpo ses only. ) Not Available [facility] [address] [place], [address], 11/13/2024 09:07:12 11/12/1911/13/2024 HCV RNA, QUANT ITATI VE REAL TIME PCR HCV RNA, quantitative real time PCR <15 NOT DETECT ED IU/mL not detect ed normal Not Available [facility] [address] [place], [address], 11/13/2024 09:07:13 11/12/19 25 11/13/2024 HCV RNA, QUANT ITATI VE REAL TIME PCR HCV RNA, quantitative real time PCR <1.18 NOT DETECT ED log_I U/mL not detect ed normal For addit ional dwightr susan bennett refer to http: //[facility].sherita hernandezia gnost ics.c om/fa q/FAQ 22v1 (This link is being provi ded for flaco parmar/ tessa mata purpo ses only. ) Not Available [facility] [address] [place], [address], 11/13/2024 09:07:13 12/26/19 25 12/25/2024 CBC WBC 5.7 x10 4.0-10 .5 Not Available [facility] [address] [facility] 1, [place], [address], 12/25/2024 12:34:14 12/26/19 25 12/25/2024 CBC RBC 4.08 x10 3.50-5 .50 Not Available [facility] [address] [facility] 1, [place], [address], 12/25/2024 12:34:14 12/26/19 25 12/25/2024 CBC HGB 12.7 g/dL 12.0-1 6.0 Not Available [facility] [address] [facility] 1, [place], [address], 12/25/2024 12:34:14 12/26/19 25 12/25/2024 CBC HCT 39.0 % 37.0-4 7.0 Not Available [facility] [address] [facility] 1, [place], [address], 12/25/2024 12:34:14 12/26/19 25 12/25/2024 CBC MCV 95.7 fL 80.0-9 9.9 Not Available [facility] [address] [facility] 1, [place], [address], 12/25/2024 12:34:14 12/26/19 25 12/25/2024 CBC MCH 31.2 pg 27.0-3 2.0 Not Available [facility] [address] [facility] 1, [place], [address], 12/25/2024 12:34:14 12/26/19 25 12/25/2024 CBC MCHC 32.7 g/dL 32.0-3 6.0 Not Available [facility] [address] [facility] 1, [place], [address], 12/25/2024 12:34:14 12/26/19 25 12/25/2024 CBC RDW 14.1 % 11.5-1 4.5 Not Available [facility] [address] [facility], [place], [address], 12/25/2024 12:34:14 12/26/19 25 12/25/2024 CBC plt 186.3 x10 140.0- 451.0 Not Available [facility] [address] [facility] 1, [place], [address], 12/25/2024 12:34:14 12/26/19 25 12/25/2024 CBC lymphocytes % 22.7 % 20.0-5 0.0 Not Available [facility] [address] [facility] 1, [place], [address], 12/25/2024 12:34:14 12/26/19 25 12/25/2024 CBC granulcytes % 68.6 % 30.0-7 0.0 Not Available [facility] [address] [facility] [facility] 1, [place], [address], 12/25/2024 12:34:14 12/26/19 25 12/25/2024 CBC monocytes % 6.2 % 2.0-16 .0 Not Available [facility] [address] [facility] 1, [place], [address], 12/25/2024 12:34:14 12/26/19 25 12/25/2024 CBC granulcytes# 3.9 x10 Not Barbara ilable [facility] [address] [facility], [place], [address], 12/25/2024 12:34:14 12/26/19 25 12/25/2024 CBC lymphocytes # 1.3 x10 Not Available [facility] [address] [facility], [place], [address], 12/25/2024 12:34:14 12/26/19 25 12/25/2024 CBC monocytes # 0.4 x10 Not Avai lable [facility] [address] [facility], [place], [address], 12/25/2024 12:34:14 12/26/19 25 12/25/2024 CMP (FEMA LE) glucose 106.0 mg/dL 60.0-9 9.0 high Not Available [facility] [address] [facility] 1, [place], [address], 12/25/2024 12:40:56 12/26/19 25 12/25/2024 CMP (FEMA LE) BUN (blood urea nitrogen) 18.0 mg/dL 10.0-2 6.0 Not Available [facility] [address] [facility] 1, [place], [address], 12/25/2024 12:40:56 12/26/19 25 12/25/2024 CMP (FEMA LE) creatinine (serum) 1.1 mg/dL 0.4-1. 5 Not Available [facility] [address] [facility], [place], [address], 12/25/2024 12:40:56 12/26/19 25 12/25/2024 CMP (FEMA LE) BUN/creatini ne ratio 16.36 ratio Not Available [facility] [address] [facility], [place], [address], 12/25/2024 12:40:56 12/26/19 25 12/25/2024 CMP (FEMA LE) eGFR calculated 52.8 Not Available [facility] [address] [facility] 1, [place], [address], 12/25/2024 12:40:56 12/26/19 25 12/25/2024 CMP (FEMA LE) total protein 7.6 g/dL 6.0-8. 5 Not Available [facility] [address] [facility] 1, [place], [address], 12/25/2024 12:40:56 12/26/19 25 12/25/2024 CMP (FEMA LE) total bilirubin 0.7 mg/dL 0.2-1. 3 Not Available [facility] [address] [facility] 1, [place], [address], 12/25/2024 12:40:56 12/26/19 25 12/25/2024 CMP (FEMA LE) albumin 4.3 g/dL 3.5-5. 5 Not Available [facility] [address] [facility] 1, [place], [address], 12/25/2024 12:40:56 12/26/19 25 12/25/2024 CMP (FEMA LE) globulin 3.3 calc Not Available [facility] [address] [address], [place], [address], 12/25/2024 12:40:56 12/26/19 25 12/25/2024 CMP (FEMA LE) AST (SGOT) 33.0 U/L 0.0-46 .0 Not Available [facility] [address] [facility] 1, [place], [address], 12/25/2024 12:40:56 12/26/19 25 12/25/2024 CMP (FEMA LE) altv (SGPT) 21.0 U/L 13.0-6 9.0 normal Not Available [facility] [address] [facility], [place], [address], 12/25/2024 12:40:56 12/26/19 25 12/25/2024 CMP (FEMA LE) A/G ratio 1.3 ratio Not Available [facility] [address] [facility], [place], [address], 12/25/2024 12:40:56 12/26/19 25 12/25/2024 CMP (FEMA LE) ALP phos 60.0 U/L 30.0-1 40.0 normal Not Available [facility] [address] [facility], [place], [address], 12/25/2024 12:40:56 12/26/19 25 12/25/2024 CMP (FEMA LE) calcium 9.3 mg/dL 8.4-10 .5 Not Available [facility] [address] [facility], [place], [address], 12/25/2024 12:40:56 12/26/19 25 12/25/2024 CMP (FEMA LE) sodium 140.0 mmol/ L 136.0- 145.0 Not Available [facility] [address] [facility], [place], [address], 12/25/2024 12:40:56 12/26/19 25 12/25/2024 CMP (FEMA LE) potassium 4.2 mmol/ L 3.5-5. 1 Not Available [facility] [address] [facility], [place], [address], 12/25/2024 12:40:56 12/26/19 25 12/25/2024 CMP (FEMA LE) chloride 105.0 mmol/ L 98.0-1 10.0 normal Not Available [facility] [address] [facility], [place], [address], 12/25/2024 12:40:56 12/26/19 25 12/25/2024 CMP (FEMA LE) C02 26.0 mmol/ L 22.0-3 1.0 Not Available [facility] [address] [facility], [place], [address], 12/25/2024 12:40:56 12/26/19 25 12/25/2024 CMP (FEMA LE) anion gap 9.0 calc Not Available [facility] [address] [facility], [place], [address], 12/25/2024 12:40:56 12/26/19 25 12/25/2024 CMP (FEMA LE) osmolality 291.3 calc Not Available [facility] [address] [facility], [place], [address], 12/25/2024 12:40:56 12/26/19 25 12/25/2024 TSH TSH 3.12 uIU/m L 0.49-3 .82 normal Not Available [facility] [address] [facility], [place], [address], 12/25/2024 12:59:45 12/26/19 25 12/29/2024 TALAT,I FA, CASCA DE AND RHEUM ATOID ARTHR ITIS PANEL 2, WITH REFLE XES TALAT screen, ifa NEGATI VE negati ve normal TALAT IFA is a first line scree n for detec ting the prese nce of up to appro ximat john 150 autoa ntibo dies in vario us autoi mmune disea ses. A negat basim TALAT IFA resul t sugge sts an TALAT-a ssoci ated autoi mmune disea se is not prese nt at this time, and does not refle x furth er. If there is high clini rachel suspi cion for Sjogr en's syndr ome, testi ng for anti- SS-A/ Ro antib karen shoul d be consi dered . Anti- Melissa-1 antib karen shoul d be consi dered for clini nell suspe cted infla mmato ry myopa luis . AC-0: Negat basim Inter natio nal Conse nsus on TALAT Patte rns (http s://d oi.or g/10. 1515/ [facility]2017- 0052) For addit ional infor susan bennett e refer to http: //[facility].Que stDia gnost ics.c om/fa q/FAQ 177 (This link is being provi ded for infor reji parmar/ educa toño l purpo ses only. ) Not Available [employer] [address] [address] [place], [address], 12/29/2024 23:07:29 12/26/1912/29/2024 TALAT,I FA, CASCA DE AND RHEUM ATOID ARTHR ITIS PANEL 2, WITH REFLE XES rheumatoid factor <10 IU/mL <14 normal Not Available [employer] [facility] [address] [address] [place], [address], 12/29/2024 23:07:29 12/26/19 25 12/29/2024 TALAT,I FA, CASCA DE AND RHEUM ATOID ARTHR ITIS PANEL 2, WITH REFLE XES cyclic citrullinate d peptide (ccp) Ab (IgG) <16 units normal Refer ence Range Negat basim: <20 Weak Posit basim: 20-39 Moder ate Posit basim: 40-59 Stron g Posit basim: >59 Not Available [address], [address], 12/29/2024 23:07:29 12/26/19 25 12/29/2024 TALAT,I FA, CASCA DE AND RHEUM ATOID ARTHR ITIS PANEL 2, WITH REFLE XES mutated citrullinate d vimentin (MCV) Ab <20 U/mL <20 Anti- mutat ed citru llina gabe vimen tin antib karen may be used as a secon d-sean e marke r of rheum atoid arthr itis, in addit ion to rheum atoid facto r and anti- cycli c citru llina gabe pepti de (CCP) . Not Available 22 [place], [address], 12/29/2024 23:07:29 12/26/19 25 12/29/2024 URIC ACID uric acid 5.5 mg/dL 2.5-7. 0 normal Thera peuti c targe t for gout patie nts: <6.0 mg/dL Not Available [address], [address], 12/29/2024 23:07:29 12/26/19 25 12/29/2024 C-SELENA CTIVE PROTE IN C-reactive protein 7.5 mg/L <8.0 normal Not Available [address], [address], 12/29/2024 23:07:31 01/01/20 25 12/31/2024 ESR (eryt hrocy te sedim entat ion rate) , blood SedRate 25 Not Available [facility] ([facility]) [address] [place], [address], 12/25/2024 11:05:27 03/23/20 25 03/23/2025 URINA LYSIS WITH MICRO color YELLOW Not Available [facility] [address], [place], [address], 03/23/2025 18:00:40 03/23/20 25 03/23/2025 URINA LYSIS WITH MICRO clarity CLEAR Not Available [facility] [address], [place], [address], 03/23/2025 18:00:40 03/23/20 25 03/23/2025 URINA LYSIS WITH MICRO glu NEGATI VE Not Available [facility] [address], [place], [address], 03/23/2025 18:00:40 03/23/20 25 03/23/2025 URINA LYSIS WITH MICRO bili NEGATI VE Not Available [facility] [address], [place], [address], 03/23/2025 18:00:40 03/23/20 25 03/23/2025 URINA LYSIS WITH MICRO ket NEGATI VE Not Available [facility] [address], [place], [address], 03/23/2025 18:00:40 03/23/20 25 03/23/2025 URINA LYSIS WITH MICRO S.g 1.030 1.005- 1.025 high Not Available [facility] [address], [place], [address], 03/23/2025 18:00:40 03/23/20 25 03/23/2025 URINA LYSIS WITH MICRO pH 5.5 5.0-7. 0 Not Available [facility] [address], [place], [address], 03/23/2025 18:00:40 03/23/20 25 03/23/2025 URINA LYSIS WITH MICRO pro TRACE Not Available [facility] [address], [place], [address], 03/23/2025 18:00:40 03/23/20 25 03/23/2025 URINA LYSIS WITH MICRO uro 0.2 E.U./D L Not Available [facility] [address], [place], [address], 03/23/2025 18:00:40 03/23/20 25 03/23/2025 URINA LYSIS WITH MICRO nit NEGATI VE Not Available [facility] [address], [place], [address], 03/23/2025 18:00:40 03/23/20 25 03/23/2025 URINA LYSIS WITH MICRO blo 3+ Not Available [facility] [address], [place], [address], 03/23/2025 18:00:40 03/23/20 25 03/23/2025 URINA LYSIS WITH MICRO stephanie 1+ Not Available [facility] [address], [place], [address], 03/23/2025 18:00:40 03/23/20 25 03/23/2025 URINA LYSIS WITH MICRO WBC 25-30 Not Available [facility] [address], [place], [address], 03/23/2025 18:00:40 03/23/20 25 03/23/2025 URINA LYSIS WITH MICRO RBC 10-12 Not Available [facility] [address], [place], [address], 03/23/2025 18:00:40 03/23/20 25 03/23/2025 URINA LYSIS WITH MICRO epi cells 8-10 Not Available [facility] [address], [place], [address], 03/23/2025 18:00:40 03/23/20 25 03/23/2025 URINA LYSIS WITH MICRO bacteria 1+ MIXED ANGELIKA Not Available [facility] [address] [facility] [address], [place], [address], 03/23/2025 18:00:40 03/23/20 25 03/23/2025 URINA LYSIS WITH MICRO other NEGATI VE Not Available [facility] [address] [facility] [address], [place], [address], 03/23/2025 18:00:40 03/24/20 25 03/26/2025 CULTU RE, URINE , ROUTI NE culture, urine, routine SEE NOTE CULTU RE, URINE , ROUTI NE Micro Numbe r: [id number] Test Statu s: Final Speci men Sourc e: Urine Speci men Quali ty: Adequ ate Resul t: Less than 10,00 0 CFU/m L of singl e Gram posit basim organ ism isola gabe. No furth er testi ng will be perfo rmed. If clini nell indic ated, recol lecti on using a metho d to minim ize conta minat ion, with promp t trans scott to Urine Cultu re Trans port Tube, is recom olegario d. Not Available [facility] [address], [place], [address], 03/26/2025 02:20:10 12/11/19 25 12/09/2024 US, susanle x, venou s, lower extre mity, unila teral No observ ation record ed. [address] [place], [address], 12/11/2024 14:45:29 12/26/19 25 12/25/2024 XR, chest , 2 view No observ ation record ed. [facility] ([facility]) [address] [place], [address], 12/30/2024 07:43:49 12/26/19 25 12/25/2024 elect rocar diogr am No observ ation record ed. [facility] ([facility]) [address] [place], [address], 12/31/2024 17:39:59 12/26/19 25 12/25/2024 elect rocar diogr am No observ ation record ed. [facility] ([facility]) [address] [place], [address], 12/31/2024 08:44:55 12/26/19 25 12/25/2024 elect rocar diogr am No observ ation record ed. [facility] ([facility]) [address] [place], [address], 12/25/2024 17:41:13 12/27/19 25 12/25/2024 XR, chest , 2 view No observ ation record ed. [email or web address] [place], [address], 01/01/2025 11:00:29 12/27/19 25 12/25/2024 XR, knee, 3 view No observ ation record ed. [facility] [address] [place], [address], 12/30/2024 07:43:29 01/29/20 25 01/27/2025 , [facility] ardio gram No observ ation record ed. [facility] [address] [place], [address], 02/02/2025 09:34:35 Result Notes None recorded. Problems Name Problem SNOMED Code Status Onset Date Resolution Date Notes Provider Name and Address Organization Details Recorded Time Neoplasm of colon 115189075 Active 2010 Colon Cancer; Date: 2010; 06/07/19 11:34AM by Angela Marino, Office Visit; Promoted ; acuity set as *; Bianca uribe [facility] 5 13:01:51 Malignan t neoplast ic disease 800111379 Active 2010 Cancer; Vaginal; Date: 2010; 06/07/19 11:34AM by Angela Marino, Office Visit; Promoted ; acuity set as *; Josh uribe [facility] 4 17:45:31 Gastroes ophageal reflux disease 990706007 Active [address] [facility] 4 12:48:08 Insomnia 342867535 Active 2022 Insomnia ; 06/07/19 11:34AM by Angela Marino, Office Visit; Promoted ; acuity set as *; Josh uribe [facility] 4 17:45:31 Osteoart hritis of left hip joint 74404112042 9108 Active [address] [facility] 5 13:01:51 Pain of left hip joint 42958967142 9100 Active [address] [facility] 5 13:01:51 Adult health examinat ion Active [address] [facility] 5 13:01:51 Chronic low back pain 040191189 Active [address] [facility] 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 5 13:01:50 Hyperlip idemia 68370987 Active 2022 Josh uribe, [facility] 4 17:45:31 Atherosc lerosis of aorta 90816961 Active [address] [facility] 5 13:01:51 Colostom y present 621294983 Active 2022 Bianca uribe, [facility] 5 13:01:51 Chronic obstruct basim pulmonar y disease 21955472 Active 2022 Josh uribe, [facility] 4 17:45:31 Active or passive immuniza tion Active [address] [facility] 5 13:01:51 Fatigue 12395262 Active [address] [facility] 5 13:01:51 Pain of right knee joint 08162394308 4100 Active 2022 Jesica Dewey, [address], [address] , [facility] 5 07:50:32 Osteoart hritis of right knee joint 38631084440 9100 Active [address] [facility] 5 13:01:51 Peripher al neuropat hy due to and followin g antineop lastic therapy 305189917 Active [address] [facility] 5 13:01:51 Osteoart hritis of left knee joint 82295589516 9109 Active 2023 Bianca uribe, [facility] 5 13:01:51 Postmeno pausal state 45588415 Active 2023 Bianca uribe, [facility] 5 13:01:51 Generali zed anxiety disorder 78382796 Active 2023 Josh Rolandomoisés null, [facility] 4 17:45:31 Chronic hoarsene ss 32963610471 05 Active [address] [facility] 5 13:01:51 Pruritic rash 51962769 Active [address] [facility] 5 13:01:51 Poor short-te rm memory 422747021 Active [address] [facility] 5 13:01:51 Chronic kidney disease stage 3A 325488760 Active [address] [facility] 5 13:01:51 Dizzines s 664196458 Active [address] [facility] 5 13:01:51 Bilatera l peripher al neuropat hy of lower limbs 08077177542 292520 Active [address] [facility] 5 13:01:51 Chronic hepatiti s C 050639239 Completed 202411/19/2024 Removal Reason: Patient is cured after treatmen t. Moe Wong MD [address] [place] [address], [address] , [facility] 15:26:04 Moderate recurren t major depressi on 61752849 Active 2024 Josh uribe, [facility] 13:07:06 Pain of right calf 87977982680 71447 Active 2024 [place] [address], [facility] 17:27:26 Bilatera l lower leg edema 722853047 Active 2024 [place] [address], [facility] 07:49:10 Dyspnea 067230977 Active 2024 [place] [address], [facility] 07:51:24 Arthriti s 4140038 Active 2024 [place] [address], [facility] 07:51:46 Nodule of lung 606288377 Active 2024 Jesica [place] [address], [facility] 17:43:40 Chronic heart failure co-occur rent with normal ejection fraction 16930671097 02 Active 2024 Jesica [place] [address], [facility] 17:43:43 Problem Notes None recorded. Procedures Surgical History Date Name Laterality Status Provider Name and Address Organization Details Recorded Time 5 Joint Inj Kenalog- Shoulder, Hip, Knee completed Josh Gonzalez [facility] 12/25/2024 11:07:47 5 Joint Inj Kenalog- Shoulder, Hip, Knee completed Josh [facility] 09/17/2024 15:08:45 4 Joint Inj Kenalog- Shoulder, Hip, Knee completed Jesica Dewey, [address], [address], [facility] 05/31/2023 09:52:10 3 Joint Inj Kenalog- Shoulder, Hip, Knee completed Jesica Dewey [address], [address], [facility] 02/19/2023 15:25:07 3 colonoscopy completed ANGELA MARINO [facility] 01/18/2023 09:47:18 Imaging Results None recorded. Procedure Notes None recorded. Medical Equipment None Reported. Allergies Allergen ID Allergen Name Allergen Category Reaction Reaction Severity Criticality Documentation Date Start Date Code Code System Note Provider Name and Address Organization Details Recorded Time 632 Toradol medicatio n hallucina tions moderate high 08/16/2022 30669 RxNorm Patie nt repor ts she can take other NSAID s Keisha uribe [facility] 4 11:24:58 633 cisplatin medicatio n Not available Not available Not available 08/16/2022 [address] [facility] 3 10:56:28 Medications Name Sig Start Date Stop Date Status Note LastModified by Organization Details LastModified Time celecoxib 200 mg capsule 10/31 completed Not Available Not Available Not Available venlafaxi ne ER 37.5 mg capsule,e xtended release 24 hr TAKE 1 CAPSULE BY MOUTH ONCE DAILY AT BEDTIME FOR 7 DAYS THEN INCREASE TO 75MG AT BEDTIME 08/16 completed Not Available Not Available Not Available acetamino phen 325 mg tablet Take 2 tablets every 6 hours by oral route as needed, for pain. 2023 active Not Available Not Available Not Avai lable venlafaxi ne ER 75 mg capsule,e xtended release 24 hr TAKE 1 CAPSULE BY MOUTH AT BEDTIME AFTER 37.5 MG SCRIPT 08/16 completed Not Available Not Available Not Available albuterol sulfate 2.5 mg/3 mL (0.083 %) solution for nebulizat ion every four hours, as needed 01/18 completed DM/sd; Recorded 06/08/19 23 12:03PM by Duane Bakeric al Summary; Refill Quantity : 270; Millilit er; Not Available Not Available Not Available citalopra m 40 mg tablet 01/18 completed Not Available Not Available Not Available chlorzoxa zone 500 mg tablet TAKE 1/2 TABLET BY MOUTH 3 TIMES DAILY NEEDED 08/16 completed Not Available Not Available Not Available hydrocodo ne 5 mg-acetam inophen 325 mg tablet TAKE 1 TO 2 TABLETS BY MOUTH EVERY 5 HOURS NEEDED FOR PAIN 12/30 completed Not Available Not Available Not Available sucralfat e 1 gram tablet TAKE 1 TABLET BY MOUTH 4 TIMES DAILY NEEDED FOR HEART BURN active Not Available Not Available No t Available prednison e 20 mg tablet TAKE 2 TABLETS BY MOUTH IN THE MORNING FOR 10 DAYS 10/31 completed Not Available Not Available Not Available gabapenti n 400 mg capsule TAKE ONE CAPSULE BY MOUTH THREE TIMES A DAY 03/23 completed Not Available Not Available Not Available sertralin e 100 mg tablet TAKE ONE TABLET BY MOUTH EVERY DAY 12/30 completed Not Available Not Available Not Available sumatript an 50 mg tablet 12/30 completed Not Available Not Available Not Available dextromet horphan-g uaifenesi n 10 mg-100 mg/5 mL oral syrup Take 5 mL 3 times a day by oral route as needed. 10/31 completed Not Available Not Available Not Available tramadol 50 mg tablet TAKE ONE TABLET BY MOUTH EVERY DAY NEEDED 2024 active Not Available Not Available Not Avai lable triamcino lone acetonide 0.1 % topical cream APPLY A THIN LAYER TOPICALL Y TO THE AFFECTED AREA(S) TWICE DAILY 12/30 completed Not Available Not Available Not Available spironola ctone 25 mg tablet TAKE 1 TABLET BY MOUTH ONCE DAILY 03/23 completed Not Available Not Available Not Available Kenalog 40 mg/mL suspensio n for injection Take 40 mg by injectio n route. 2024 active Not Available Not Available Not Avai lable cefadroxi l 500 mg capsule 10/31 completed Not Available Not Available Not Available betametha sone acetate and sodium phos 6 mg/mL suspensio n for injection Take 6 mg by injectio n route. 10/31 completed Not Available Not Available Not Available famotidin e 20 mg tablet 10/31 completed Not Available Not Available Not Available amitripty line 25 mg tablet TAKE 2 TABLETS BY MOUTH AT BEDTIME 03/23 completed Not Available Not Available Not Available estradiol 1 mg tablet TAKE ONE TABLET BY MOUTH THREE TIMES A DAY 2024 active Not Available Not Available Not Avai lable amitripty line 10 mg tablet TAKE 4 TABLETS BY MOUTH ONCE DAILY AT BEDTIME FOR 7 DAYS THEN 3 ONCE DAILY AT BEDTIME FOR 7 DAYS THEN 2 ONCE DAILY AT BEDTIME FOR 7 DAYS THEN 1 ONCE DAILY AT BEDTIME FOR 7 DAYS THEN STOP 03/23 completed Not Available Not Available Not Available benzonata te 100 mg capsule TAKE 1 CAPSULE BY MOUTH THREE TIMES A DAY NEEDED 06/20 completed Not Available Not Available Not Available pantopraz ole 40 mg tablet,de layed release TAKE ONE TABLET BY MOUTH EVERY DAY FOR STOMACH 2024 active Not Available Not Available Not Avai lable triamcino lone acetonide 0.1 % topical ointment APPLY A THIN LAYER TO THE AFFECTED AREA(S) BY TOPICAL ROUTE 2 TIMES PER DAY 10/31 completed Not Available Not Available Not Available gabapenti n 300 mg capsule TAKE 1 CAPSULE 3 TIMES A DAY 03/23 completed Not Available Not Available Not Available hydroxyzi ne HCl 25 mg tablet Take 1 tablet 3 times a day by oral route as needed for 30 days, for itch and rash. 2024 active Not Available Not Available Not Avai lable hydrochlo rothiazid e 25 mg tablet TAKE 1 TABLET BY MOUTH EVERY DAY in THE morning active Not Available Not Available No t Available lorazepam 1 mg tablet TAKE ONE TABLET BY MOUTH THREE TIMES A DAY NEEDED 2024 active Not Available Not Available Not Avai lable zolpidem 10 mg tablet one po every night for sleep 2024 active Not Available Not Available Not Avai lable albuterol sulfate HFA 90 mcg/actua tion aerosol inhaler INHALE TWO PUFFS BY MOUTH EVERY 4 HOURS NEEDED 2024 active Not Available Not Available Not Avai lable cefdinir 300 mg capsule Take 1 capsule twice a day by oral route for 10 days. 09/03 completed Not Available Not Available Not Available fluticaso ne propionat e 50 mcg/actua tion nasal spray,anthony pension INSTILL 1 SPRAY IN EACH NOSTRIL ONCE DAILY 2024 active Not Available Not Available Not Avai lable doxycycli ne hyclate 100 mg tablet Take 1 tablet twice a day by oral route for 10 days. 10/31 completed Not Available Not Available Not Available oxycodone 5 mg tablet 10/31 completed Not Available Not Available Not Available memantine 10 mg tablet Take 1 tablet twice a day by oral route for 90 days, for memory. 2024 active Not Available Not Available Not Avai lable duloxetin e 20 mg capsule,d elayed release TAKE 1 CAPSULE BY MOUTH TWICE DAILY active Not Available Not Available No t Available Constulos e 10 gram/15 mL oral solution 12/30 completed Not Available Not Available Not Available pregabali n 100 mg capsule Take 1 capsule 3 times a day by oral route for 90 days, for peripher al neuropat hy. 03/23 completed Not Available Not Available Not Available pregabali n 150 mg capsule TAKE 1 CAPSULE BY MOUTH ONCE DAILY FOR PERIPHER AL NEUROPAT HY 09/15 completed Not Available Not Available Not Available magnesium citrate active Not Available Not Available Not Available lorazepam three times daily 01/18 completed Recorded 03/16/20 22 7:36AM by Jesica Dewey DO, Refill Request; Mail Order Quantity : 90 Tablet; Mail Order Days: 30 Days; Refill Quantity : 0; Not Available Not Available Not Available sumatript an succinate 12/30 completed Not Available Not Available Not Available Ambien at bedtime 01/18 completed Recorded 05/24/19 23 3:11PM by Jesica Dewey DO, Refill Request; Mail Order Quantity : 30 Tablet; Mail Order Days: 30 Days; Refill Quantity : 30; Tablet; Not Available Not Available Not Available Constulos e 01/18 completed Recorded 10/25/19 22 7:02AM by Sherley Du, Office Visit; Refill Quantity : 0; Not Available Not Available Not Available Lyrica every day 02/12 completed Recorded 04/25/20 22 6:46AM by Jesica Dewey DO, Refill Request; Refill Quantity : 30; Capsule; Not Available Not Available Not Available guaifenes in ER 600 mg tablet, extended release 12 hr Take 1 tablet every 12 hours by oral route for 6 days. 06/20 completed Not Available Not Available Not Available Spiriva Respimat 2.5 mcg/actua tion solution for inhalatio n INHALE 2 SPRAY(S) BY MOUTH IN THE MORNING active Not Available Not Available No t Available Epclusa 400 mg-100 mg tablet Take 1 tablet every day by oral route for 28 days. 2024 active Not Available Not Available Not Avai lable Trelegy Ellipta 200 mcg-62.5 mcg-25 mcg powder for inhalatio n Inhale 1 puff every day by inhalati on route as directed for 30 days. 2024 active Not Available Not Available Not Avai lable Breyna 160 mcg-4.5 mcg/actua tion HFA aerosol inhaler INHALE 2 PUFFS BY MOUTH TWICE DAILY active Not Available Not Available No t Available Vitals Date Recorded Body height Body mass index (BMI) Body weight Oxygen saturation Oxygen saturation in Arterial blood by Pulse oximetry Heart rate Respiratory rate Systolic And Diastolic Provider Name and Address Organization Details Last Updated DateTime 5 167.64 cm 29.1 kg/m2 91079.0 3 g 97 % 97 % 84 /min 18 /min 130/80 mm[Hg] [facility] 5 17:02:13 Date Recorded Body height Body mass index (BMI) Body weight Oxygen saturation Oxygen saturation in Arterial blood by Pulse oximetry Heart rate Respiratory rate Systolic And Diastolic Provider Name and Address Organization Details Last Updated DateTime 5 167.64 cm 30.1 kg/m2 96129.5 8 g 98 % 98 % 92 /min 18 /min 120/80 mm[Hg] [facility] 5 10:05:36 Date Recorded Body height Body mass index (BMI) Body weight Oxygen saturation Oxygen saturation in Arterial blood by Pulse oximetry Heart rate Respiratory rate Systolic And Diastolic Provider Name and Address Organization Details Last Updated DateTime 5 167.64 cm 30 kg/m2 07771.8 8 g 98 % 98 % 68 /min 18 /min 130/70 mm[Hg] [facility] 5 10:11:41 Date Recorded Body height Body mass index (BMI) Body weight Oxygen saturation Oxygen saturation in Arterial blood by Pulse oximetry Heart rate Respiratory rate Systolic And Diastolic Provider Name and Address Organization Details Last Updated DateTime 5 167.64 cm 27.8 kg/m2 57746.8 9 g 98 % 98 % 88 /min 18 /min 126/74 mm[Hg] ANGELA MARINO [facility] 5 17:11:21 Social History None recorded. Functional Status Question Answer Note LastModified by Organizat ion Details LastModified Time Do you use any illicit or recreational drugs? No Information not available 08/16/2022 Do you or have you ever used any other forms of tobacco or nicotine? No [email or web address] Information not available 08/16/2022 What is your level of alcohol consumption? Occasional [email or web address] Information not available 08/16/2022 Mental Status None recorded. Family History Nothing Reported. Medical History No medical history recorded. Gynecological HistoryNo gynecological history recorded. Obstetrics History GPAL:G 0 P 0 0 0 0 Immunizations Vaccine Type Date Status Note Provider Nam e and Address Organization Details Recorded Time Pneumococcal conjugate PCV20, polysaccharide [id number] conjugate, adjuvant, PF 3 completed ANGELA MARINO [facility] 01/18/2023 09:53:25 MMR 7 completed Bianca Powell [facility] 04/30/2024 16:36:37 COVID-19, mRNA, LNP-S, PF, 100 mcg/0.5mL dose or 50 mcg/0.25mL dose 1 completed Bianca Powell [facility] 04/30/2024 16:36:37 COVID-19, mRNA, LNP-S, PF, 100 mcg/0.5mL dose or 50 mcg/0.25mL dose 1 completed Bianca Powell [facility] 04/30/2024 16:36:37 pneumococcal polysaccharide PPV23 3 completed Bianca Powell [facility] 04/30/2024 16:36:37 Td (adult), 2 Lf tetanus toxoid, preservative free, adsorbed 7 completed Bianca Powell [facility] 04/30/2024 16:36:37 Td (adult), 2 Lf tetanus toxoid, preservative free, adsorbed 2 completed Bianca Powell [facility] 04/30/2024 16:36:37 Influenza, split virus, quadrivalent, PF 9 completed Bianca Powell [facility] 04/30/2024 16:36:37 Influenza, split virus, quadrivalent, PF 1 completed Bianca uribe, [facility] 04/30/2024 16:36:37 RSV, recombinant, protein subunit RSVpreF, adjuvant reconstituted, 0.5 mL, PF 4 completed Not Available [facility] 03/23/2025 16:42:51 zoster recombinant 3 completed Jesica Dewey DO [address] [place] [address], [phone], [facility] 01/18/2023 13:21:55 zoster recombinant 3 completed ANGELA uribe, [facility] 03/27/2023 18:34:01 Influenza, split virus, trivalent, PF 4 completed Jesica Dewey DO [address] [place] [address], [address], [facility] 05/12/2024 08:46:58 Pneumococcal conjugate PCV20, polysaccharide [id number] conjugate, adjuvant, PF 4 completed Jesica Dewey DO [address] [place] [address], [address], [facility] 05/12/2024 08:46:58 Past Encounters Encounter ID Performer Location Encounter Start Date Encounter Closed Date Diagnosis/Indication Diagnosis SNOMED-CT Code Diagnosis ICD10 Code Diagnosis IMO Codes Diagnosis Note [id number] Jesica Dewey DO [facility] ([facility]) [address] [place] [phone] 08/16/2022 10:44:26 08/25/2022 07:03:32 Pain of bilateral knee joints 5872423325 30735 M25.561 M25.562 Pain of le ft hip joint 2265860973 25448 M25.552 [id number] Jesica Dewey DO [facility] [facility]) [address] [place] [address] [id number] 5 09/05/2022 08:47:51 09/11/2022 09:59:08 Pain of left hip joint [id number] 90715 M25.552 chronic, severe, worsening. Pt did PT without improvemen t, infact pain is worse. Pt needs further imaging and workup of left hip. will get MRI w/out IV contrast. will add gabapentin . has been using cane, continue with can, consider walker. No more PT at this time. Osteoarthr itis of left hip joint [id number] 87244 M16.12 deteriorat ed, failed PT for 6+ wks. , concern for additional pathology. will get MRI as above. [id number] Jesica Dewey DO [facility] ([facility]) [address] [place] [address] 01/18/2023 09:21:34 01/18/2023 13:51:15 Active or passive immunization 595681647 Z23 I counseled pt on vaccinatio ns. they are willing to accept the Shingles vaccinatio n. given today, they will return in 8 wks for the 2nd/last booster. Adult heal th examination 212491552 Z00.00 I counseled patient on diet, exercise, weight, and mental health. We discussed appropriat e cancer screenings . All questions were addressed. She will keep up-to-date with her mammograms . She is planning to follow-up with her rectal surgeon in [place] for further evaluation and colon cancer screening. I reviewed recent labs prior to visit and discussed recent labs/studi es with pt during this visit. Pt is encouraged to utilized the portal. all questions were addressed. f/u every 12 mts for annual wellness visits. q 6 mts for other chronic issues. Chronic low back pain 27 2111412 M54.50 Worsening. Continue tramadol. Counseled on exercise. Overlappin g malignant neoplasm of rectum, anus and anal canal 486531041 C21.8 Status post resection 2010 in [place] with permanent colostomy placed. Moderate m ajor depression, single episode 45056237 F32.1 Continue sertraline . Hyperlipidemia 15841331 E78.5 stable. pt declines statin. counseled on diet, exercise. Insomnia 535208158 G47.0 0 Counseled on sleep hygiene. Continue Ambien as needed. Atheroscle rosis of aorta 61319758 I70.0 Patient declines statin. Counseled on diet exercise and blood pressure control. Colostomy present 830863 009 Z93.3 Bilateral peripheral neuropathy of lower limbs 3552712320 5828586 G62.2 Continue Lyrica stable Chronic ob structive pulmonary disease 95180525 J44.9 Very mild. Not requiring inhalers except as needed albuterol. Counseled. She no longer smokes. Fatigue 04024990 R53.83 Unchanged. [id number] Jesica Dewey DO [facility] ([facility]) [address] [place] [phone] 5 02/19/2023 13:39:20 02/19/2023 18:34:27 Pain of right knee joint 8442073496 75709 M25.561 After detailed discussion on diagnosis and treatment options, pt expressed verbal desire to proceed today with procedure and expressed verbal understand ing of options, risks, procedure, and expectatio ns.Patient desiring injection today. Given as above. Counseled. Pt tolerated the procedure well. Aftercare instructio ns with expectatio ns and precaution s were discussed. Osteoarthr itis of right knee joint 0391411125 58022 M17.11 [id number] Jesica Dewey DO [facility]) [address] [place] [phone] 5 03/27/2023 12:43:11 03/27/2023 18:40:26 Active or passive immunization 516533475 Z23 I counseled pt on vaccinatio ns. they are willing to accept the Shingles vaccinatio n. given today, they will return in 8 wks for the 2nd/last booster. [id number] Jesica Dewey DO [facility] ([facility]) [address] [place] [address] [phone] 5 03/30/2023 11:13:30 04/02/2023 10:47:20 Fatigue 98486638 R53.83 Unchanged. [id number] Jesica Dewey DO [facility]) [address] [place] [phone] 5 05/31/2023 08:57:51 05/31/2023 11:41:27 Osteoarthritis of left hip joint 2527157935 75716 M16.12 unchanged. continue gabapentin Atheroscle rosis of aorta 50607782 I70.0 Patient declines statin. Counseled on diet exercise and blood pressure control. Colostomy present 795021 009 Z93.3 2017 with rectal/mele s resection due to cancer.pt and surgeon in [place] considerin g relocating ostomy due to chronic irritation from paints affecting function of bag. Chronic ob structive pulmonary disease 95750294 J44.9 Very mild. Not requiring inhalers except as needed albuterol. Counseled. She no longer smokes. Bilateral peripheral neuropathy of lower limbs 6504443128 3606973 G62.2 stop lyrica, increase gabapentin . counseled Insomnia 382077728 G47.0 0 Counseled on sleep hygiene. Continue Ambien as needed. Moderate m ajor depression, single episode 16605491 F32.1 Continue sertraline . Neoplasm of colon 831450 000 D49.0 Hx of 2017 s/p resection, chemo, radiation. Osteoarthr itis of right knee joint 6969415727 37608 M17.11 After detailed discussion on diagnosis and treatment options, pt expressed verbal desire to proceed today with joint injection as per above.The patient expressed verbal understand ing of options, risks, procedure, and expectatio ns. Pt tolerated the procedure well. Aftercare instructio ns with expectatio ns and precaution s were discussed. Osteoarthr itis of left knee joint 8038560880 27954 M17.12 After detailed discussion on diagnosis and treatment options, pt expressed verbal desire to proceed today with joint injection as per above.The patient expressed verbal understand ing of options, risks, procedure, and expectatio ns. Pt tolerated the procedure well. Aftercare instructio ns with expectatio ns and precaution s were discussed. History of malignant neoplasm of rectum 438804734 Z85.048 Hx of 2017 s/p resection, chemo, radiation. continues to be followed by GI in [place]. Peripheral neuropathy due to and following antineoplastic therapy 851221007 G62.2 continue gabapentin , will increase dose, stop lyrica for down due to possible SE. counseled [id number] Jesica Dewey DO [facility] ([facility]) [address] [place] [address] [phone] 5 06/04/2023 11:33:14 06/04/2023 15:28:16 Acute upper respiratory infection 23861482 J06.9 Pt declined testing for covid and/or flu. VSS. Discussed use of prescribed medication s.Return if you develop high fevers, sob, chest pain, or worsening s/s. [id number] Jesica Dewey DO [facility] ([facility]) [address] [place] [address] [phone] 5 06/20/2023 09:45:03 06/20/2023 10:59:29 Generalized anxiety disorder 62472198 F41.1 Continue Sertraline , Lorazepam. Insomnia 532278637 G47.0 0 Counseled on sleep hygiene. Continue Ambien as needed. Chronic ob structive pulmonary disease 06060978 J44.9 06/20/23- acute flare, abx, steroid injection, she doesn't like Prednisone . Postmenopausal state 764 53334 Z78.0 06/20/23- discussed Estradiol, concerned this may be thinning her skin, contributi ng to easy bruising. Counseled we need to work on decreasing this, especially at her current age, will decrease from 3 tabs per day to 2 tabs per day. [id number] BRANDI GOETZ [facility] ([facility]) [address] [place] [address] [phone] 5 06/26/2023 11:12:11 06/27/2023 13:37:05 Dyspnea 932701529 R06.00 Acute exac erbation of chronic obstructive pulmonary disease 509772111 J44.1 Normal chest x-ray today. No evidence of CHF or pneumonia. Will send x-ray for over read. Continue doxycyclin e as prescribed . Encouraged to continue inhalers and nebulizers at home. Recommend a follow up with PCP in 1 week. If chest pain or severe SOB occurs, should go to ED. Patient verbalizes understand ing. Anxiety 06058213 F41.9 Discussed with patient that I do feel that her anxiety is contributi ng to her SOB. Recommend taking lorazepam as prescribed and following up with PCP next week to discuss effectiven ess of anxiety medication s. Patient is agreeable to plan of care. [id number] Jesica Dewey DO [facility] ([facility]) [address] [place] [address] [phone] 5 07/02/2023 12:10:34 07/02/2023 12:59:55 Chronic obstructive pulmonary disease 57552391 J44.9 patient has recovered slower than expected. Vital signs stable today. Tolerating the Trelegy well and appears to be sick currently effective. Patient quit smoking about 20 years ago after about 35 years of smoking.We will continue Trelegy and albuterol. Will obtain CT chest and pulmonary function testing to evaluate severity of lung disease and ensure no other complicati ng factors. Pruritic rash 50196910 L 28.2 appears viral etiology. will start topical steroids. counseled. expect slow improvemen t over the next 2-5 wks. [id number] Jesica Dewey DO [facility] ([facility]) [address] [place] [address] [phone] 5 11/01/2023 10:53:55 11/01/2023 12:08:59 Poor short-term memory 439388250 R41.3 MMSE today was good: . unlikely dementia. will check for possible contributi on from anemia, thyroid, b12, folate, vit D.counsele d on brain health and mind exercises. Chronic hoarseness 70976 35934 105 R49.0 has been on PPI for 6 mts. no acid reflux s/swill sent to ENT Chronic ob structive pulmonary disease 08177587 J44.9 patient has recovered slower than expected. Vital signs stable today. Tolerating the Trelegy well and appears to be sick currently effective. Patient quit smoking about 20 years ago after about 35 years of smoking.We will continue Trelegy and albuterol. Will obtain CT chest and pulmonary function testing to evaluate severity of lung disease and ensure no other complicati ng factors. Pruritic rash 49630247 L 28.2 appears viral etiology. will start topical steroids. counseled. expect slow improvemen t over the next 2-5 wks. [id number] OLEKSANDR RAMIREZ [facility] ([facility]) [address] [place] [address] 11/19/2023 08:54:36 11/19/2023 10:30:27 Contusion of rib 325052618 S20.20XA Discussed ice applicatio n. Deep breathing exercises every 2 hours while awake. Patient states she is controllin g the pain with otc topicals. Return if you develop fever, sob, or cough. [id number] Jesica Dewey DO [facility] ([facility]) [address] [place] [address] [phone] 5 11/26/2023 11:52:21 11/26/2023 14:27:15 Contusion of rib 471177873 S20.20XA worsening pain, will start norco, xrays today. monitor for pneumonia s/s. 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 Continue Gabapentin . Hyperlipidemia 34042521 E78.5 stable. pt declines statin. counseled on diet, exercise. Chronic ki dney disease stage 3A 867275020 N18.31 Following renal function. Chronic hoarseness 65885 65134 105 R49.0 12/26/23- reviewed and discussed CT neck ordered per ENT, pt to keep upcoming ENT appt for f/u. Chronic ob structive pulmonary disease 56001519 J44.9 12/26/23- continue Trelegy, samples given in clinic today d/t cost for pt at this time. Reviewed and discussed recent CT chest, counseled on LDCT chest annually. [id number] Jesica Dewey DO [facility] ([facility]) [address] [place] [address] [id number] 5 02/18/2024 11:36:29 02/22/2024 20:47:47 Preoperative cardiovascular examination 829596272 Z01.171 [id number] Jesica Dewey DO [facility] ([facility]) [address] [place] [address] [phone] 5 02/20/2024 11:23:24 02/20/2024 12:11:36 Chronic obstructive pulmonary disease 09789799 J44.9 02/20/24- Reviewed and discussed recent CT chest/ PFT with Ailyn, counseled I want her to get back in with Pulm for reevaluati on, they wanted to see her again in 6 months at her last appt on 10/16/23. Continue Trelegy, samples provided. 12/26/23- continue Trelegy, samples given in clinic today d/t cost for pt at this time. Reviewed and discussed recent CT chest, counseled on LDCT chest annually. Chronic hoarseness 47089 63145 105 R49.0 02/20/24- Reviewed CT Neck and barium swallow with pt, counseled continue with plan to scope with Dr. Bullard. 4- reviewed and discussed CT neck ordered per ENT, pt to keep upcoming ENT appt for f/u. Active or passive immunization 041324023 Z23 02/20/24- counseled with her current lung issues I recommend vaccinatio n- RSV, Flu, Pneumonia. Will give Flu and Prevnar 20 today, pt to return for RSV in 3-4 weeks. Administra tion of influenza vaccine 06569423 Z23 [id number] Jesica Dewey DO [facility] ([facility]) [address] [place] [address] [phone] 5 02/26/2024 11:46:18 02/26/2024 16:21:12 Dizziness 087368447 R42 02/26/24- recurrent. Counseled will refer to Dr. Cope, Neurology, for eval. Pt with h/o vaginal Ca, concerned for mets, will obtain MRI Brain. Gastroesop hageal reflux disease 625213749 K21.9 02/26/24- Counseled increase Pantoprazo le from one daily to BID, start Sucralfate . Chronic low back pain 27 1497976 M54.50 Acetaminop hen at pt's request. [id number] Jesica Dewey DO [facility] ([facility]) [address] [place] [address] [phone] 5 04/30/2024 16:29:19 05/11/2024 08:32:06 Poor short-term memory 446290626 R41.3 04/30/24- deteriorat ing, concerned for Dementia. Appt with Neuro 05/29/24, to keep this appt. Will start Memantine, repeat MMSE today. Will also stop Gabapentin , concerned it may be contributi ng to memory loss. 11/01/23: MMSE today was good: . unlikely dementia. will check for possible contributi on from anemia, thyroid, b12, folate, vit D.counsele d on brain health and mind exercises. Bilateral peripheral neuropathy of lower limbs 0131772951 9351275 G62.2 04/30/24- counseled stop Gabapentin , concerned it may be contributi ng to memory loss. F/u 1-2 weeks. [id number] Jesica Dewey DO [facility] ([facility]) [address] [place] [address] [phone] 5 05/12/2024 15:34:06 05/15/2024 09:55:41 Poor short-term memory 709845644 R41.3 05/12/24: Much improved per pt and after stopping Gabapentin . will keep her off this and monitor. continue memantine for now.- deteriorat ing, concerned for Dementia. Appt with Neuro 05/29/24, to keep this appt. Will start Memantine, repeat MMSE today. Will also stop Gabapentin , concerned it may be contributi ng to memory loss. 11/01/23: MMSE today was good: . unlikely dementia. will check for possible contributi on from anemia, thyroid, b12, folate, vit D.counsele d on brain health and mind exercises. Bilateral peripheral neuropathy of lower limbs 6342484204 3018376 G62.2 05/12/24: much worse off gabapentin , but it has been causing memory issues. will start with lyrica if no significan t improvemen t in 3 days add Amitriptyl ine. 04/30/24- counseled stop Gabapentin , concerned it may be contributi ng to memory loss. F/u 1-2 weeks. [id number] Jesica Dewey DO [facility] ([facility]) [address] [place] [address] [phone] 5 05/28/2024 15:45:14 05/29/2024 14:39:58 Overlapping malignant neoplasm of rectum, anus and anal canal 309385448 C21.8 Status post resection 2010 in [place] with permanent colostomy placed. Moderate m ajor depression, single episode 40150305 F32.1 Continue sertraline . Chronic ob structive pulmonary disease 72033217 J44.9 05/28/24: Trelegy samples provided to pt today, as this is working well for her, reports her insurance will cover it after Jun 2024.- Reviewed and discussed recent CT chest/ PFT with Ailyn, counseled I want her to get back in with Pulm for reevaluati on, they wanted to see her again in 6 months at her last appt on 10/16/23. Continue Trelegy, samples provided. 12/26/23- continue Trelegy, samples given in clinic today d/t cost for pt at this time. Reviewed and discussed recent CT chest, counseled on LDCT chest annually. Chronic ki dney disease stage 3A 220380909 N18.31 Following renal function. Atheroscle rosis of aorta 06688421 I70.0 Patient declines statin. Counseled on diet exercise and blood pressure control. 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 Continue Gabapentin . Hyperlipidemia 15564120 E78.5 stable. pt declines statin. counseled on diet, exercise. Insomnia 213923461 G47.0 0 Counseled on sleep hygiene. Continue Ambien as needed. Chronic low back pain 27 5151233 M54.50 Acetaminop hen at pt's request. Chronic hepatitis C 1283 80082 B18.2 05/28/24: Reviewed and discussed lab on pt's [facility] portal. Counseled on diagnosis, treatment options including medication s and possible side effects. Will refer to Dr. Wong. Will order liver US. Counseled Hep C+ patient is at increased risk for liver cancer, will draw additional lab today. Advised spouse be tested as well. Acute sinusitis 88361374 J01.90 Cefdinir 300mg po BID x 10 days. counseled fill this and start it today. Generalize d anxiety disorder 40626615 F41.1 Continue Sertraline , Lorazepam. Colostomy present 969293 009 Z93.3 2017 with rectal/mele s resection due to cancer.pt and surgeon in [place] considerin g relocating ostomy due to chronic irritation from paints affecting function of bag. [id number] Jesica Dewey DO [facility] ([facility]) [address] [place] [address] [phone] 5 06/12/2024 11:02:10 06/12/2024 13:14:18 [id number] Moe Wong MD [facility] ([facility]) [address] [place] [address] [phone] 5 06/17/2024 15:55:07 06/17/2024 16:54:06 Chronic hepatitis C 494391407 B18.2 We will check hep C RNA and genotype. Will also make sure she does not have coinfectio n with hepatitis B. Review of other lab work and imaging does not demonstrat e any significan t concerns about proceeding with treatment. Discussed treatment including medication s and potential side effects. The patient was agreeable to proceed. Once we have the additional lab work done we will send prescripti on to the specialty pharmacy. [id number] Jesica Dewey DO [facility] ([facility]) [address] [place] [address] [phone] 5 09/10/2024 15:20:05 09/11/2024 10:26:25 Chronic hepatitis C 534360256 B18.2 05/28/24: Reviewed and discussed lab on pt's [facility] portal. Counseled on diagnosis, treatment options including medication s and possible side effects. Will refer to Dr. Wong. Will order liver US. Counseled Hep C+ patient is at increased risk for liver cancer, will draw additional lab today. Advised spouse be tested as well. [id number] Jesica Dewey DO [facility]) [address] [place] [address] [phone] 5 09/17/2024 14:08:37 09/23/2024 14:53:06 Osteoarthritis of right knee joint 8210685923 33208 M17.11 After detailed discussion on diagnosis and treatment options, pt expressed verbal desire to proceed today with joint injection as per above.The patient expressed verbal understand ing of options, risks, procedure, and expectatio ns. Pt tolerated the procedure well. Aftercare instructio ns with expectatio ns and precaution s were discussed. [id number] Jesica Dewey DO [facility] ([facility]) [address] [place] [address] 11/18/2024 12:13:53 11/18/2024 13:20:39 Chronic hepatitis C 253174366 B18.2 05/28/24: [facility] and [facility]. Counseled on diagnosis, treatment options including medication s and possible side effects. Will refer to Dr. Wong. Will order liver US. Counseled Hep C+ patient is at increased risk for liver cancer, will draw additional lab today. Advised spouse be tested as well. Weight increased 1577197 00 R63.5 33475 11/18/24: Counseled concerned d/t Hep C tx and taking Sertraline , finished tx approx 1 week ago, wean off Sertraline , f/u with me in 6 weeks. Generalize d anxiety disorder 03684112 F41.1 Continue Lorazepam. Sertraline stopped 11/18/24 weaned down, d/t weight gain. Moderate r ecurrent major depression 72798720 F33.1 [id number] 11/18/24: Counseled stop Sertraline d/t weight gain, take 1/2 tab for 2 weeks then stop, will continue Cymbalta. Fatigue 39806918 R53.83 [id number] 11/18/24: Counseled take B12, check hair and nail vitamins at home to ensure B12 is in it. Abnormal v aginal bleeding 218837623 N93.9 [id number] 11/18/24: Pt will contact LABOR OPERATOR for evaluation h/o vaginal ca s/p hysterecto my. If referral needed, we can process it. [id number] Jesica Dewey DO [facility] ([facility]) [address] [place] [address] 12/08/2024 16:42:40 12/09/2024 13:40:08 Pain of right calf 6676078027 608806 M79.661 [id number] unclear etiology, but will get stat US to r/o DVT. she will start 325mg ASA today. phone f/u.GO to ER with any return of CP or worsening SOB. Bilateral peripheral neuropathy of lower limbs 4036354746 5333744 G62.2 12/08/24: pt is wanting to wean down on her gabapentin becuase she read it would give her dementia. I counseled pt on the research. she will decreae to 300mg TiD for now and consider further waen pending leg pain.05/12: much worse off gabapentin , but it has been causing memory issues. will start with lyrica if no significan t improvemen t in 3 days add Amitriptyl ine. 04/30/24- counseled stop Gabapentin , concerned it may be contributi ng to memory loss. F/u 1-2 weeks. [id number] Jesica Dewey DO [facility] ([facility]) [address] [place] [address] [phone] 5 12/09/2024 09:36:31 12/10/2024 11:56:21 [id number] Jesica Dewey DO [facility] ([facility]) [address] [place] [address] [id number] 5 12/25/2024 09:34:38 12/26/2024 16:17:27 Pain of right knee joint 5166176010 60645 M25.561 [id number] 12/25/24: Deteriorat ed, bucklig and not able to bear weight at time. XR right knee today.She declines Prednisone today, it makes me swell like a blimp, I wouldn't turn down a shot in my knee . We last injected the right knee on 09/17/24. Injection given today. Dyspnea 489873835 R06.00 14035438 CXR today. concern for CHF. if so, will start diuretic, will get echo and ekg today. Arthritis 6074570 M19.90 [id number] Lab today to eval for autoimmune arthritis. counseled [id number] Jesica Dewey DO [facility] ([facility]) [address] [place] [address] [id number] 5 12/30/2024 09:36:22 01/06/2025 08:12:09 Pain of right knee joint 1005827118 13502 M25.561 [id number] 12/30/24: somewhat improved after injection. Discussed recent right knee XR. Explained I am concerned for possible meniscal tear, I recommend MRI, she agrees. Discussed possible repair of meniscus if that's the issue. If Ortho is needed pt prefers Dr. Salinas.: Deteriorat ed, bucklig and not able to bear weight at time. XR right knee today.She declines Prednisone today, it makes me swell like a blimp, I wouldn't turn down a shot in my knee . We last injected the right knee on 09/17/24. Injection given today. Health Concerns Section Related Observation LastModified by Organization Detai ls LastModified Time None Recorded Concern Status LastModified by Organization Details LastModified Time None Recorded Advance Directives Directive None Recorded Payers Insurance Date Sequence Insurance Name Policy Number Policy King Covered Member ID King Member ID Guarantor Name 01/12/2023 2 [place] Juhi Drew [id number] Juhi Drew 03/21/2025 1 [place] (MEDICARE REPLACEMENT/A DVANTAGE - PPO) [id number] Juhi Drew [id number] Juhi Drew Notes Date Note Type Note Provider Name and Address Organization Details Recorded Time 12/08/2024 text/html ROS as noted in the HPI Pt presents for BLE edema and chest pains. She has had the swelling to uli feet for 4-5 days ago her right foot is worse than the leftShe admits that it goes down but if she is up on her feet then it comes back She also reports that there is pain with the swelling, a sharp crampy pain around ankle and back of knee. intermittent, mild to moderate. not resolving. This is not her typical leg pain.she denies recent travel long distances in car, plane, etc. not lying in bed or being immobile either. She also has had sob and 2 episodes of sudden sharp CP that lasted a fw minues. one yesterday, once the day prior. none today. Jesica Dewey, DO [address] [place] [address], [place], [address], [facility], LYan 12/08/2024 17:45:05 12/25/2024 text/html ROS as noted in the HPI Pt presents for edema, joint pain. She c/o that she has had the edema since the last visit. She has the swelling all over, BLE's and BUE's Having significant pain in the right knee, worse with movement, bending over, squatting. She admits fall on the right side since her last visit here.She has seen Dr. Brad Espinal in [place] in the past, was told she has a lot of arthritis, willing to return there if needed. She reports pain in joints of b/l ankles, knees, wrists, elbows. Her right ankle with turn very red intermittently.She has tingling in b/l feet. She would like injection the right knee, reports the last time she received one on 09/17/24 it helped for about 1 day. CRP elevated at 8.4 on 11/11/24.She hasn't ever been tested for Gout or Psoriatic Arthritis. She is also having increased sob and difficulty breathing, she is concerned of fluid in her chestNo prior Echo. 12/09/24: RLE US negative for DVT. Jesica Dewey, DO [address] [place] [address], [phone], [facility], [place] 12/30/2024 08:05:30 12/30/2024 text/html ROS as noted in the HPI Pt presents for recheck 6 weeks weight gain, mood after stopping Sertraline. We stopped Sertraline on 11/18/24 d/t weight gain. To continue Cymbalta.She admits that her mood has not been that great, she has a short fuse. She does not want to be around anyone. She called on 12/25/24 requesting a diuretic and something for pain. We sent in HCTZ and Tramadol today, 12/30/24. In the meantime she has been using OTC diuretic, thinks it has been helping.She has taken both HCTZ and Tramadol in the past and tolerated well. Her sob at rest is better but present when doing any activity She would like to discuss the results of her chest xray done on 12/25/24:IMPRESSION:No acute chest abnormality. We did a right knee injection on 12/25/24, she reports pain is better, but still present.She still has pain to right leg with swelling behind the kneeXR R knee 12/25/24:IMPRESSION:No significant bone or joint abnormality. Pt is concerned about her weight, it is bothering her and spouse. Jesica Dewey, DO [address] [place], [address], [facility], [place] 01/05/2025 08:16:01 03/23/2025 text/html General Rash/Ski n LesionReported by PatientHPIFor quality, patient reportsitchyandmulti ple. For location, patient reportsarmandlegs. For severity, patient reportsmoderateandwo rsening. For associated symptoms, patient reportsno fever,no cold symptoms,no nausea, andno vomiting.ROS as noted in the HPI Patient presents for a visit today due to a rash on both upper and lower extremities. The rash started one month ago, and the patient is concerned it might be caused by mites. The rash appears red with small white spots. she also wants to discuss the PET scan ordered by TIFFANIE haro, Dr. Pagan.She also wants to discuss the echo she had with Dr. Chavez, cardiology at [facility]. showed possible valve issues and diastolic dysfunction. DR. Chavez is want to get a cardiac stress test. Not Available Not Available Not Available OBGyn Episode No OBEpisode recorded.
--- OUTSIDE RECORDS SUMMARY | 2025-04-02 09:39 | XMS_ITS | Encounter Summary ---
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 (CMS/HCC) Social History Tobacco Use Types Packs/Day Years Used Date Smoking Tobacco: Never Assessed Comments Unknown Sex and Gender Information Value Date Recorded Sex Assigned at Not on file Legal Sex Female 5:10 AM ACCOUNTS RECEIVABLE ANALYST Gender Identity Not on file Sexual Orientation Not on file documented as of this encounter Plan of Treatment Not on file documented as of this encounter Results * PET TUMOR IMG W CT SKL BSE MID THG (06/04/2018 9:57 AM ACCOUNTS RECEIVABLE ANALYST) Anatomical Region Laterality Modality Nuclear Medicine 06/04/2018 9:57 AM ACCOUNTS RECEIVABLE ANALYST Impressions 06/04/2018 3:00 PM ACCOUNTS RECEIVABLE ANALYST IMPRESSION: Abnormal examination. 1. A left cervical chain lymph node has enlarged and now shows hypermetabolic activity as discussed above. Metastatic disease is considered. 2. No findings to suggest metastatic or recurrent disease in the chest, abdomen, or pelvis otherwise. This laboratory has been accredited by the Intersocietal Commission for the Accreditation of Nuclear Medicine Laboratories (IAC Nuclear/PET). [id number] Narrative 06/04/2018 3:00 PM ACCOUNTS RECEIVABLE ANALYST Radionuclide PET Metabolic Tumor Imaging with CT Attenuation Correction and Anatomic Localization from Skull Base to Mid Thigh: Radiopharmaceutical: [id number] Dose: 13.8 mCi right port IV Time of Injection: 8:40 hrs Clinical Indication: Restaging anal carcinoma. FDG ([id number]) PET imaging was performed at 9:40 hrs approximately one hour following intravenous infusion [...] at the time of tracer injection was 85 mg/dl with normal biodistribution of tracer. The quality of this examination is acceptable with regards to count density, processed images, data display and lack of important artifacts (including but not limited to motion and attenuation artifacts). Comparison made with previous PET/CT of 12/05/2016. Head/Neck: A left cervical chain lymph node located just medial to the parotid gland on image 47 of series 3 has increased in size measuring 5 mm in short axis, previously imperceptible and now shows a max SUV of 3.1. Thorax: Mediastinal blood pool demonstrates a max SUV of 2.17. No suspicious focus of increased uptake is seen otherwise in the chest. No suspicious pulmonary nodules are noted. Mild emphysematous changes are identified. Abdomen/Pelvis: Hepatic background shows a max SUV of 2.73. There is mild increased uptake noted at the ostomy with a max SUV of 3.85 likely surgical in etiology. No suspicious focal uptake is seen in the abdomen or pelvis otherwise. Physiologic bilateral renal and bladder activity is noted. There is also physiologic bowel activity identified. Changes post anorectal surgery are noted. Musculoskeletal: No suspicious focal uptake. Procedure Note Casey Ibarra MD - 06/04/2018 Radionuclide PET Metabolic Tumor Imaging with CT Attenuation Correction and Anatomic Localization from Skull Base to Mid Thigh: Radiopharmaceutical: [id number] Dose: 13.8 mCi right port IV Time of Injection: 8:40 hrs Clinical Indication: Restaging anal carcinoma. FDG ([id number]) PET imaging was performed at 9:40 hrs approximately one hour following intravenous infusion [...] at the time of tracer injection was 85 mg/dl with normal biodistribution of tracer. The quality of this examination is acceptable with regards to count density, processed images, data display and lack of important artifacts (including but not limited to motion and attenuation artifacts). Comparison made with previous PET/CT of 12/05/2016. Head/Neck: A left cervical chain lymph node located just medial to the parotid gland on image 47 of series 3 has increased in size measuring 5 mm in short axis, previously imperceptible and now shows a max SUV of 3.1. Thorax: Mediastinal blood pool demonstrates a max SUV of 2.17. No suspicious focus of increased uptake is seen otherwise in the chest. No suspicious pulmonary nodules are noted. Mild emphysematous changes are identified. Abdomen/Pelvis: Hepatic background shows a max SUV of 2.73. There is mild increased uptake noted at the ostomy with a max SUV of 3.85 likely surgical in etiology. No suspicious focal uptake is seen in the abdomen or pelvis otherwise. Physiologic bilateral renal and bladder activity is noted. There is also physiologic bowel activity identified. Changes post anorectal surgery are noted. Musculoskeletal: No suspicious focal uptake. IMPRESSION: Abnormal examination. 1. A left cervical chain lymph node has enlarged and now shows hypermetabolic activity as discussed above. Metastatic disease is considered. 2. No findings to suggest metastatic or recurrent disease in the chest, abdomen, or pelvis otherwise. This laboratory has been accredited by the Intersocietal Commission for the Accreditation of Nuclear Medicine Laboratories (IAC Nuclear/PET). 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
--- OUTSIDE RECORDS SUMMARY | 2025-04-02 09:39 | XMS_ITS | Clinical Summary ---
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 AM SALES ADMINISTRATOR Gender Identity Not on file Sexual Orientation Not on file Plan of Treatment Health Maintenance Due Date Last Done Comments DTAP/TDAP/TD VACCINES (1 - Tdap) 1977 BREAST CANCER SCREENING 1998 COLORECTAL SCREENING 09/07/2003 Colorectal Cancer Screening 09/07/2003 FIT-DNA Q 3 years 09/07/2003 FIT/FOBT Q 1 year 09/07/2003 Flex Sig/CT Colonography Q 5 years 09/07/2003 PNEUMOCOCCAL VACCINE 50+ YEARS (1 of 1 - PCV) 09/07/19 09 ZOSTER VACCINE (1 of 2) 2008 OSTEOPOROSIS SCREENING 09/07/2023 INFLUENZA VACCINE (#1) 2024 02/19/2019 RSV VACCINE (60+ or ) (1 - 1-dose 75+ series) 2033 Insurance [facility] Care Teams Satellite Installer Relationship Specialty Start Date End Date Sherwin Sánchez MD [address] [facility] [address] [place] [phone] PCP - General Family Practice 05/23/18
--- OUTSIDE RECORDS SUMMARY | 2025-04-02 09:39 | XMS_ITS | Clinical Summary ---
Author Organization [facility] Address [address] [facility] Attn: Epic Prelude ADT [place] [address] Care Team Providers Care Heel Builder Machine Name Role Phone Harpreet Kent Primary Care Provider [phone] Allergies Active Allergy Reactions Criticality Noted Date Comments Cisplatin Itching Medium 06/17/2021 Ketorolac Nausea and Vomiting,Anxiety,Confusion,Dizziness,D elirium,Hallucination High 04/25/2019 Medications albuterol sulfate HFA 90 mcg/actuation aerosol inhaler Take 2 Puffs by inhalation every 4 hours as needed. 3 Active albuterol (PROVENTIL,VENTOL IN) 2.5 mg /3 mL (0.083 %) Solution for Nebulization Take 2.5 mg by inhalation every 6 hours as needed. 3 Active LORazepam (ATIVAN) 1 mg tablet Take 1 mg by mouth 3 times daily as needed. 3 Active pantoprazole (PROTONIX) 40 mg Tablet, Delayed Release (E.C.) Take 40 mg by mouth daily. 3 Active sertraline (ZOLOFT) 100 mg tablet Take 100 mg by mouth daily. 3 Active fluticasone-umecl idinium-vilantero l (TRELEGY ELLIPTA) 200-62.5-25 mcg Disk with Device Take 1 Puff by inhalation daily. Active gabapentin (NEURONTIN) 400 mg capsule Take 400 mg by mouth 3 times daily. Active zolpidem (AMBIEN) 10 mg tablet Take 1 Tablet by mouth late in the day. 0 Active Active Problems Problem Noted Date Diagnosed Date Status post total hip replacement, left 08/21/19 Preoperative general physical examination 2023 Asthma 07/20/2023 Anxiety 07/20/2023 Depression 07/20/2023 Insomnia 07/20/2023 GERD (gastroesophageal reflux disease) Colostomy in place 07/20/2023 History of tobacco use 07/20/2023 Localized malignant neoplasm of vulva 08/04/2016 Anal cancer 07/31/2016 Resolved Problems Problem Noted Date Diagnosed Date Resolved Date Primary osteoarthritis of left hip 06/13/2023 09/04/2023 Encounters Date Type Department Care Team Description 03/24/2025 External Device Data STL ABSTRACTION Provider, Abstract from Last 3 Months Family History Medical History Relation Name Comments Cancer Brother 2 Calixto Zaldivar liver/suicide Lung Cancer Brother 2 Calixto Zaldivar liver cancer/suicide Cancer Father Ashok Zaldivar prostate,bone Rheumatoid Arthritis Father Ashok Zaldivar Diabetes Maternal Aunt Jody Isaac/Cassie Nuñez Lung Cancer Maternal Aunt Jody Isaac/Cassie Nuñez wanda ng cancer Lung Cancer Maternal Grandfather Calixto Syedn cancer Lung Cancer Maternal Grandmother Sherry Syedn breast cancer Lung Cancer Maternal Uncle Luisito & Devon Zaldivar Cancer Diabetes Mother Noy Zaldivar Kidney failure Lung Cancer Paternal Grandfather Zen heart d isease Lung Cancer Paternal Grandmother Maegan Zen child b irth Cancer Sister 2 BarbaraJackson lung, brain Relation Name Status Comments Brother 1 Brother 2 Calixto Zaldivar Alive Daughter Alive Father Ashok Zaldivar Alive Maternal Aunt Jody Isaac/Cassie Nuñez Alive Maternal Grandfather Calixto Osborneeron Alive Maternal Grandmother Sherry Osborneeron Alive Maternal Uncle Luisito & Devon Zaldivar Alive Mother Noy Zaldivar Alive Paternal Grandfather Zen Alive Paternal Grandmother Maegan Zen Alive Sister 1 Sister 2 BarbaraJackson Alive Son 1 Alive Son 2 Alive Social History Tobacco Use Types Packs/Day Years Used Date Smoking Tobacco: Former Cigarettes 1 30 1 - 05/20/2007 Smokeless Tobacco: Never Tobacco Cessation:Counseling Given: Not Answered Alcohol Use Standard Drinks/Week Comments Yes 5 (1 standard drink = 0.6 oz pur e alcohol) Feeling Safe Answer Date Recorded Are you in a relationship wi th someone who hurts you emotionally and/or physically? No 08/09/2023 Food Insecurity Answer Date Recorded Social/Environmental Concerns No concerns Transportation Needs Answer Date Record ed Social/Environmental Concerns No concerns Housing Stability Answer Date Recorded Social/Environmental Concerns No concerns Utility Needs Answer Date Recorded Social/Environmental Concerns No concerns Comments No Sex and Gender Information Value Date Recorded Sex Assigned at Female 03/27/2024 9:55 AM AUTOMOTIVE PARTS MANAGER Legal Sex Female 12:21 AM AUTOMOTIVE PARTS MANAGER Gender Identity Female 03/27/2024 9:55 AM AUTOMOTIVE PARTS MANAGER Sexual Orientation Straight 03/27/2024 9: 55 AM AUTOMOTIVE PARTS MANAGER Last Filed Vital Signs Vital Sign Reading Time Taken Comments Blood Pressure 129/69 08/19/2024 11:26 AM CDT Pulse 82 10/16/2023 1:26 PM CDT Temperature 36.4 C (97.5 F) 08/10/2023 11:14 AM CDT Respiratory Rate 16 08/10/2023 11:14 AM CDT Oxygen Saturation 96% 10/16/2023 1:26 PM CDT Inhaled Oxygen Concentration - - Weight 77.6 kg (171 lb) 08/19/2024 11:26 AM CDT Height 167.6 cm (5' 6 ) 08/19/2024 11:26 AM CDT Body Mass Index 27.6 08/19/2024 11:26 AM CDT Plan of Treatment Health Maintenance Due Date Last Done Comments Pre-Diabetes and Diabetes Screening 1958 DTAP/TDAP/TD VACCINES (1 - Tdap) 05/28/1996 05/27/18 97, 06/02/1991 BREAST CANCER SCREENING 1998 FIT-DNA Q 3 years 09/07/2003 FIT/FOBT Q 1 year 09/07/2003 Flex Sig/CT Colonography Q 5 years 09/07/2003 RSV VACCINE (60+ or ) (1 - Risk 50-74 years 1-dose series) 2008 OSTEOPOROSIS SCREENING 09/07/2023 INFLUENZA VACCINE (#1) 2024 4, 04/27/2021, 02/19/2019 COVID-19 Vaccine ( season) 01/19/202502/2021, 12/03/2020 COLORECTAL SCREENING 07/12/2032 07/12/2022, 07/11/19 Colorectal Cancer Screening 07/12/2032 ZOSTER VACCINE Completed 03/27/2023, 01/18/2023 PNEUMOCOCCAL VACCINE 50+ YEARS Completed 1 , 10/09/2022, 10/07/2022 Medical Devices Implanted Type Area Project Manager Industrial Device Identifier Shelf Expiration Date Model / Serial / Lot Head Fem Art/Shahab Cer [id number] 1365-36-330 - [id number] Implanted:Qty: 1 on 08/09/2023 by Ray Salinas MD at [facility] Hip Left: Hip [employer] [id number] 05/20/2028 1365-36-3 30 / / [id number] Stem Fem Actis Colr Std Sz3 1010-11-030 - [id number] Implanted:Qty: 1 on 08/09/2023 by Ray Salinas MD at [facility] Hip Left: Hip [employer] [id number] 02/18/2032 1010-11-0 30 / / [id number] Emphasys Poly Liner 48mm 36mm Implanted:Qty: 1 on 08/09/2023 by Ray Salinas MD at [facility] Left: Hip 06/20/2028 DEPUY-472 2-48-036 / / [id number] [employer] Acetab Shell 48mm Implanted:Qty: 1 on 08/09/2023 by Ray Salinas MD at [facility] Left: Hip 06/20/2033 DEPUY-471 0-48-300 / / [id number] Insurance RX [facility] Medicare Part D Advance Directives For more information, please contact: [phone] * Full Code (Latest Code Status on File) Date Activated Date Inactivated Comments 08/09/2023 11:09 AM 08/10/2023 2:14 PM Care Teams Heel Builder Machine Relationship Specialty Start Date End Date Harpreet Kent DO PCP - General Family Practice 10/24/23
--- OUTSIDE RECORDS SUMMARY | 2025-04-02 09:39 | XMS_ITS | Encounter Summary ---
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, anus and anal canal (CMS/HCC) Procedures PET TUMOR IMG W CT SKL BSE MID THG Fahad Angulo MD Phone: tel: fax: [facility] Pre-Registration [place] CALL TO MAKE APPOINTMENT ONLY [address] [place] [address] Phone: tel: fax: Referral ID Status Reason Start Date Expiration Date Visits Requested Visits Authorized [id number] Closed Interventional Scheduling (SGF) 11/20/2016 01/21/2017 1 1 Encounter Details Date Type Department Care Team (Late st Contact Info) Description 11/23/2016 Ancillary Orders [facility] PreRegistration [place] CALL TO MAKE APPOINTMENT ONLY [address] [place] [address] Fahad Angulo MD [address] [place] [id number] Malignant neoplasm of overlapping sites of rectum, anus and anal canal (CMS/HCC) Social History Tobacco Use Types Packs/Day Years Used Date Smoking Tobacco: Never Assessed Comments Unknown Sex and Gender Information Value Date Recorded Sex Assigned at Not on file Legal Sex Female 5:10 AM CHURCH HISTORY TEACHER Gender Identity Not on file Sexual Orientation Not on file documented as of this encounter Plan of Treatment Not on file documented as of this encounter Results * PET TUMOR IMG W CT SKL BSE MID THG (12/05/2016 11:02 AM CDT) Anatomical Region Laterality Modality Nuclear Medicine 12/05/2016 11:0 2 AM CDT Impressions 12/05/2016 12:06 PM CDT IMPRESSION: Indeterminant/possibly negative examination. 1. Findings in the right hemipelvis appear to be within bowel and possibly reflect physiologic metabolic activity. Without direct comparison to the previous exam of March 09, 2016, it cannot be determined whether this focus was that of concern at that time. 2. No evidence for disease progression or distant metastases. This laboratory has been accredited by the Intersocietal Commission for the Accreditation of Nuclear Medicine Laboratories (IAC Nuclear/PET). Narrative 12/05/2016 12:06 PM CDT Radionuclide PET Metabolic Tumor Imaging with CT Attenuation Correction and Anatomic Localization from Skull Base to Mid Thigh: Radiopharmaceutical: [id number] Dose: 13.6 mCi right antecubital IV Time of Injection: 0935 hrs BMI: Not recorded Clinical Indication: Subsequent treatment strategy to evaluate anal carcinoma status post chemoradiation therapy (2010) with evidence of recurrence February 2016 with AP resection May 09, 2016 with positive margins and subsequent chemotherapy completed one month prior to today's examination. FDG ([id number]) PET imaging was performed at 1022 hrs approximately 47 minutes following intravenous infusion of the radiopharmaceutical agent [...] at the time of tracer injection was 103 mg/dl with normal biodistribution of tracer. The quality of this examination is acceptable with regards to count density, processed images, data display and lack of important artifacts (including but not limited to motion and attenuation artifacts). Comparison made with the report of a previous PET/CT of 02/24/2016 performed at [facility] and reported by Dr. Byrne to demonstrate hypermetabolic activity at the recto vaginal septum of concern for tumor recurrence. Head/Neck: Physiologic metabolic activity. Thorax: Physiologic metabolic activity without lymphadenopathy or pulmonary nodularity. A chemotherapy port is present in the right upper anterior chest. Apical scarring is present unchanged by comparison to the previous outside report. Abdomen/Pelvis: There is focally increased metabolic activity associated with what appears to be bowel in the right posterior pelvis just above the urinary bladder with a maximal SUV value of 5.19 compared to urinary bladder activity of 11.81 maximal SUV. This focus is located cephalad to right pelvic fiducials and adjacent to the reconstructed vaginal vault. Focally increased metabolic activity is associated with the left mid abdominal colostomy and is physiologic. No other focal findings or lymphadenopathy identified in the abdomen and pelvis. Musculoskeletal: No osseous or muscle abnormalities. Procedure Note Ray Haddad MD - 12/05/2016 Radionuclide PET Metabolic Tumor Imaging with CT Attenuation Correction and Anatomic Localization from Skull Base to Mid Thigh: Radiopharmaceutical: [id number] Dose: 13.6 mCi right antecubital IV Time of Injection: 0935 hrs BMI: Not recorded Clinical Indication: Subsequent treatment strategy to evaluate anal carcinoma status post chemoradiation therapy (2010) with evidence of recurrence February 2016 with AP resection May 09, 2016 with positive margins and subsequent chemotherapy completed one month prior to today's examination. FDG ([id number]) PET imaging was performed at 1022 hrs approximately 47 minutes following intravenous infusion of the radiopharmaceutical agent [...] at the time of tracer injection was 103 mg/dl with normal biodistribution of tracer. The quality of this examination is acceptable with regards to count density, processed images, data display and lack of important artifacts (including but not limited to motion and attenuation artifacts). Comparison made with the report of a previous PET/CT of 02/24/2016 performed at [facility] and reported by Dr. Byrne to demonstrate hypermetabolic activity at the recto vaginal septum of concern for tumor recurrence. Head/Neck: Physiologic metabolic activity. Thorax: Physiologic metabolic activity without lymphadenopathy or pulmonary nodularity. A chemotherapy port is present in the right upper anterior chest. Apical scarring is present unchanged by comparison to the previous outside report. Abdomen/Pelvis: There is focally increased metabolic activity associated with what appears to be bowel in the right posterior pelvis just above the urinary bladder with a maximal SUV value of 5.19 compared to urinary bladder activity of 11.81 maximal SUV. This focus is located cephalad to right pelvic fiducials and adjacent to the reconstructed vaginal vault. Focally increased metabolic activity is associated with the left mid abdominal colostomy and is physiologic. No other focal findings or lymphadenopathy identified in the abdomen and pelvis. Musculoskeletal: No osseous or muscle abnormalities. IMPRESSION IMPRESSION: Indeterminant/possibly negative examination. 1. Findings in the right hemipelvis appear to be within bowel and possibly reflect physiologic metabolic activity. Without direct comparison to the previous exam of March 09, 2016, it cannot be determined whether this focus was that of concern at that time. 2. No evidence for disease progression or distant metastases. This laboratory has been accredited by the Intersocietal Commission for the Accreditation of Nuclear Medicine Laboratories (IAC Nuclear/PET). 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
--- OUTSIDE RECORDS SUMMARY | 2025-04-02 09:39 | XMS_ITS ---
Author Organization [facility] Address [address] [facility] Attn: Epic Prelude ADT [place] [address] Care Team Providers Care Yarn Dumper Name Role Phone KentHarpreet wong Primary Care Provider [phone] Active Problems Problem Noted Date Diagnosed Date Status post total hip replacement, left 08/21/19 Preoperative general physical examination 2023 Asthma 07/20/2023 Anxiety 07/20/2023 Depression 07/20/2023 Insomnia 07/20/2023 GERD (gastroesophageal reflux disease) Colostomy in place 07/20/2023 History of tobacco use 07/20/2023 Localized malignant neoplasm of vulva 08/04/2016 Anal cancer 07/31/2016 Current Treatment and Therapy Plans No current plan information found. Past Treatment and Therapy Plans No past plan information found. Lifetime Dose Tracking * Chemical Lifetime Dose Automatic Entry Manual Entr y Effective Dose 5.1 mSv 5.1 mSv 0 mSv Total DLP 364.9 DLP 364.9 DLP 0 DLP CTDIvol Max 13.3 mGy 13.3 mGy 0 mGy CTDIvol Min 13.3 mGy 13.3 mGy 0 mGy Resolved Problems Problem Noted Date Diagnosed Date Resolved Date Primary osteoarthritis of left hip 06/13/2023 09/04/2023
[2025-04-02] MEDS: ondansetron 2 mg/ML SDV 2 mL 4 MG IVP (09:55)
[2025-04-02 09:57] VITALS: RESP 18
[2025-04-02] MEDS: morphine 4 mg/mL SDV 1 mL IVP (09:57)
[2025-04-02 09:58] VITALS: BP 156/95; PULSE 87; RESP 18; O2SAT 100
[2025-04-02 09:58] LABS: Hematocrit 41.3 % (36-47); Hemoglobin 14.10 g/dL (11.27-16.99); Mean Corpuscular HGB Conc 34.1 g/dL (30-55); Mean Corpuscular Hemoglobin 30.7 pg (27-33); Mean Corpuscular Volume 90.0 fl (85-98); Nucleated Red Blood Cells % 0 %; Platelet Count 217 10^3/cmm (157-399); Red Blood Count 4.59 10^6/uL (3.85-5.65); White Blood Count 8.61 10^3/uL (3.29-11.43)
--- NOTE | 2025-04-02 09:58 | W.ED.CHESTPA ---
HPI - Chest Pain General: Chief Complaint: Chest Pain Stated Complaint: CP SOB Time Seen by Provider: 04/02/25 09:37 Source: patient Mode of arrival: ambulatory Limitations: no limitations History of Present Illness: 64-year-old female states she has been having chest pains and she had a stress test done yesterday. States been a pressure type pain in the center of her chest mild dyspnea. She denies any worsening improving factors she rates her pain a 4 out of 10 currently. Denies any vomiting or nausea or diaphoresis. Related Data Home Medications ?Medication ?Instructions ?Recorded ?Confirmed zolpidem 10 mg tablet 10 mg PO DAILY 06/17/21 03/17/25 cyanocobalamin (vitamin B-12) 5,000 mcg sublingual DAILY 10/06/22 03/17/25 5,000 mcg sublingual tablet (Vitamin B-12) duloxetine 20 mg capsule,delayed 20 mg PO BID 02/26/25 03/17/25 release Previous Rx's ?Medication ?Instructions ?Recorded albuterol sulfate 90 mcg/actuation 2 puff inhalation Q6H PRN 11/20/19 aerosol inhaler (ProAir HFA) shortness of breath or wheezing 30 days #18 grams estradiol 1 mg tablet 1 mg PO TID 90 days #270 tabs 03/01/21 lorazepam 1 mg tablet 1 mg PO TID PRN anxiety 30 days 03/21/21 #90 tabs pantoprazole 40 mg tablet,delayed See Rx Instructions .Route 03/28/21 release .COMPLEX #90 tabs fluticasone propionate 50 See Rx Instructions .Route 06/14/21 mcg/actuation nasal .COMPLEX #16 grams spray,suspension spironolactone 25 mg tablet 25 mg PO DAILY #90 tabs 03/19/25 tiotropium bromide 2.5 2 puff inhalation QAM #4 grams 03/24/25 mcg/actuation mist for inhalation (Spiriva Respimat) Allergies Allergy/AdvReac Type Severity Reaction Status Date / Time cisplatin Allergy itching Verified 03/17/25 11:04 ketorolac (From Toradol) Allergy ADR-Anxiety Verified 03/17/25 11:04 Review of Systems Card: Reports: chest pain [facility] ED PFSH: Medical History (Updated 04/02/25 @ 12:16 by Marita Weaver MD) Lung nodule COPD (chronic obstructive pulmonary disease) History of colon cancer History of cancer of vagina GERD without esophagitis Glossitis 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 Rectal cancer History of small bowel obstruction Hypoestrogenism Hypothalamic hypothyroidism Insomnia disorder Generalized anxiety disorder Depression Surgical History History of surgery on left wrist carpel tunnel along with trigger finger and trigger thumb History of hysterectomy complete--1993 History of removal of Port-a-Cath (03/29/20) History of rectal surgery APR, with pelvic exenteration for recurrence with rectus flap Colostomy in place H/O hernia repair parastomal Port-A-Cath in place Family History Grandmother Breast cancer Maternal-breast Father Cancer prostate that spread to bones Sister Cancer brain cancer and lung Mother Chronic kidney disease (CKD) Diabetes Brother Cancer liver Diabetes Grandfather Cancer Maternal--prostate and lung Denies family history of CAD (coronary artery disease) Clotting disorder Hyperlipidemia Bleeding disorder Hypertension Stroke Social History Smoking and tobacco/nicotine status: former use of tobacco/nicotine Alcohol intake: current Alcohol intake frequency: holidays/special occasions only Substance/Drug Use: never Household members: spouse Marital status: Current occupational status: disabled Physical Exam Const: COMMON NORMALS: no acute distress, patient oriented x3 and healthy appearing HENMT: COMMON NORMALS: normocephalic and atraumatic HEAD & SCALP: normocephalic and atraumatic Neck/C-Spine: COMMON NORMALS: full ROM and supple Chest: COMMONS NORMALS: normal inspection of the chest and normal palpation of entire chest wall Resp: COMMON NORMALS: normal respiratory effort, No retractions, No use of accessory muscles and clear to auscultation bilaterally AUSCULTATION: clear to auscultation bilaterally Cardio: COMMON NORMALS: regular rate, regular rhythm and No murmurs present (Cardio) RATE: regular rate RHYTHM: regular rhythm GI: COMMON NORMALS: Normal to inspection, nondistended, normoactive bowel sounds present, Soft to palpation, non-tender and no masses PALPATION: Yes Soft to palpation Extremity: COMMON NORMALS: normal to inspection and full ROM Neuro: COMMON NORMALS: patient oriented x3, moves all extremities and no focal motor deficits Psych: COMMON NORMALS: mental status grossly normal, Normal thought process present and cooperative THOUGHT PROCESS: Normal thought process present Skin: COMMON NORMALS: no rashes or lesions noted and no wounds GENERAL SKIN EXAM: no rashes or lesions noted Course Vital Signs: Vital signs: Vital Signs Temperature 98.3 F 04/02/25 09:36 Pulse Rate 81 04/02/25 11:47 Respiratory Rate 22 H 04/02/25 11:47 Blood Pressure 120/68 04/02/25 11:47 Pulse Oximetry 93 04/02/25 11:47 Oxygen Delivery Me thod Room Air 04/02/25 09:58 MDM - Chest Pain Medical Decision Making Juhi is a 64-year-old female presents here with chest pain after stress test yesterday. Differential includes ACS, pulm emboli, atypical chest pain. Patient has no dyspnea no signs of PE. Her EKG I interpreted showed normal sinus rhythm heart rate [address] elevation QRS 80 QTc 393. Chest x-ray here showed no acute abnormalities. Initial repeat troponins here were normal rest of blood work was normal her pain is resolved here. I did review her recent stress test that showed no large areas of ischemia I did speak to Dr. Bailey of cardiology who agreed that patient is now pain-free with normal troponins she is able to go home I did speak to patient as well she states she would like to go home and felt much improved she has no signs of acute ACS here. I feel she is stable for discharge I went over her lab findings and EKGs and x-ray informed her she needs a follow-up with her PCP and along with her senior web engineer and return if worsening she understands agrees to plan. Heart score here was 3 Medical Records I reviewed the patient's medical records. Lab Data I reviewed the patient's lab results. 04/02/25 09:53 04/02/25 09:53 Radiology Impressions Chest X-Ray 04/02/25 09:35 IMPRESSION: 1. Negative chest. Laboratory Results WBC 8.61 10^3/uL (3.29-11.43) 04/02/25 09:53 RBC 4.59 10^6/uL (3.85-5.65) 04/02/25 09:53 Hgb 14.10 g/dL (11.27-16.99) 04/02/25 09:53 Hct 41.3 % (36-47) 04/02/25 09:53 MCV 90.0 fl (85-98) 04/02/25 09:53 MCH 30.7 pg (27-33) 04/02/25 09:53 MCHC 34.1 g/dL (30-55) 04/02/25 09:53 RDW 12.9 % (12.1-15.1) 04/02/25 09:53 Plt Count 217 10^3/cmm (157-399) 04/02/25 09:53 MPV 9.3 fL (7.4-10.4) 04/02/25 09:53 Neut % (Auto) 83.9 % 04/02/25 09:53 Lymph % (Auto) 9.6 % 04/02/25 09:53 Hartley % (Auto) 5.7 % 04/02/25 09:53 Eos % (Auto) 0.5 % 04/02/25 09:53 Baso % (Auto) 0.1 % 04/02/25 09:53 Neut # (Auto) 7.22 10^3/uL (1.8-7.7) 04/02/25 09:53 Lymph # (Auto) 0.8 10^3/uL (0.8-4.8) 04/02/25 09:53 Hartley # (Auto) 0.5 10^3/uL (0.2-0.9) 04/02/25 09:53 Eos # (Auto) 0.0 10^3/uL (0.0-0.8) 04/02/25 09:53 Baso # (Auto) 0.0 10^3/uL (0.0-0.1) 04/02/25 09:53 Nucleated RBC % (auto) 0 % 04/02/25 09:53 Nucleated RBCs # 0.0 /100WBC 04/02/25 09:53 Sodium 138 mmol/L (136-145) 04/02/25 09:53 Potassium 4.6 mmol/L (3.5-5.1) 04/02/25 09:53 Chloride 101 mmol/L (98-107) 04/02/25 09:53 Carbon Dioxide 24 mmol/L (22-29) 04/02/25 09:53 Anion Gap 17.6 (5-19) 04/02/25 09:53 BUN 12 mg/dL (8-23) 04/02/25 09:53 Creatinine 1.0 mg/dL (0.5-0.9) H 04/02/25 09:53 GFR Calculation 55.5 mL/min (90-130) L 04/02/25 09:53 Glucose 114 mg/dL (65-115) 04/02/25 09:53 Calculated Osmolality 287 mOsm/kg (285-295) 04/02/25 09:53 Calcium 9.2 mg/dL (8.5-10.5) 04/02/25 09:53 Total Bilirubin 0.4 mg/dL (0.15-1.2) 04/02/25 09:53 AST 17 U/L (0-32) 04/02/25 09:53 ALT 15 U/L (0-33) 04/02/25 09:53 Alkaline Phosphatase 66 U/L (35-105) 04/02/25 09:53 Troponin T Baseline 9 ng/L (0-10) 04/02/25 09:53 Troponin T 120 Minute 9.16 ng/L (0-10) 04/02/25 11:34 Delta Troponin T 0.16 ABS# (0-10) 04/02/25 11:34 NT-Pro-B Natriuret Pep 222 pg/mL (0-125) H 04/02/25 09:53 Total Protein 7.4 g/dL (6.6-8.7) 04/02/25 09:53 Albumin 4.5 g/dL (3.5-5.2) 04/02/25 09:53 Globulin 2.9 g/dL (1.3-4.6) 04/02/25 09:53 Lipase 35 U/L (13-60) 04/02/25 09:53 All radiology interpretation(s) finalized by discharge EKG Data EKG 1: I personally reviewed and interpreted this EKG as follows: EKG interpretation date: 04/02/25 EKG interpretation time: 09:39 Interpretation: nsr hr [address] elevation qrs 80 qtc 393 EKG 2: I personally reviewed and interpreted this EKG as follows: EKG interpretation date: 04/02/25 EKG interpretation time: 12:05 Interpretation: nsr hr [address] elevation qrs 77 qtc 401 Discharge Plan Discharge Patient Disposition: Home Clinical Impression: Chest pain Condition: Stable Prescriptions: No Action zolpidem 10 mg tablet 10 mg PO DAILY duloxetine 20 mg capsule,delayed release(DR/EC) 20 mg PO BID albuterol sulfate [ProAir HFA] 90 mcg/actuation HFA aerosol inhaler 2 puff INHALATION Q6H PRN (Reason: shortness of breath or wheezing) 30 Days Qty: 18 5RF estradiol 1 mg tablet 1 mg PO TID 90 Days Qty: 270 1RF lorazepam 1 mg tablet 1 mg PO TID PRN (Reason: anxiety) 30 Days Qty: 90 2RF pantoprazole 40 mg tablet,delayed release (DR/EC) See Rx Instructions .ROUTE .COMPLEX Qty: 90 1RF Dose Instruction: Take 1 tablet by mouth once daily Rx Instructions: Take 1 tablet by mouth once daily fluticasone propionate 50 mcg/actuation spray,suspension See Rx Instructions .ROUTE .COMPLEX Qty: 16 4RF Dose Instruction: Use 1 spray(s) in each nostril once daily Rx Instructions: Use 1 spray(s) in each nostril once daily spironolactone 25 mg tablet 25 mg PO DAILY Qty: 90 3RF Spiriva Respimat 2.5 mcg/actuation mist 2 puff inhalation QAM Qty: 4 11RF Vitamin B-12 5,000 mcg Tablet, Sublingual 5,000 mcg SUBLINGUAL DAILY Discharge Orders: Discharge ED (Routine); Ordered 04/02/25 Ordered By: Marita Weaver Referrals: Harpreet Kent DO [Primary Care Provider, Family Practice] - 4-7 days Discharge Diet: Advance as tolerated Discharge Activity: Resume usual activity Patient Instructions: Chest Pain (ED) Print Language: Indonesian Coding Level of Care Code ED Head Teacher for Chg Fwd Heart Score HEART Score Components History: Slightly Suspicous EKG: Normal Age: 65 or more yrs Risk Factors: 1 or 2 Risk Factors Troponin: Baseline Trop <16 ng/L HEART Score RESULT HEART Score: 3
[2025-04-02 10:22] VITALS: BP 127/67; PULSE 88; RESP 15; O2SAT 98
[2025-04-02 10:28] LABS: Troponin(5th) Baseline 9 ng/L (0-10)
[2025-04-02 10:31] LABS: Alanine Aminotransferase 15 U/L (0-33); Albumin Level 4.5 g/dL (3.5-5.2); Alkaline Phosphatase 66 U/L (35-105); Anion Gap 17.6 (5-19); Aspartate Amino Transferase 17 U/L (0-32); Blood Urea Nitrogen 12 mg/dL (8-23); Calcium 9.2 mg/dL (8.5-10.5); Carbon Dioxide 24 mmol/L (22-29); Chloride 101 mmol/L (98-107); Globulin 2.9 g/dL (1.3-4.6); Glucose 114 mg/dL (65-115); Lipase 35 U/L (13-60); NT Pro B Type Natriuretic Pept 222 pg/mL (0-125); Osmolality Calculated 287 mOsm/kg (285-295); Potassium 4.6 mmol/L (3.5-5.1); Sodium 138 mmol/L (136-145); Total Protein 7.4 g/dL (6.6-8.7)
--- NOTE | 2025-04-02 11:35 | ECG_ITS ---
[facility]: 2025-[facility]02 Pat Name: Juhi Drew Department: Room: Gender: Female Physicians [employer] Surgeons: : 1960 Requested By: Marita Weaver Order Number: [id number] Nick MD: Pasha Lopez M.D. Measurements Intervals [place] Rate: 82 P: 32 MI: 144 QRS: 2 QRSD: 77 T: 17 QT: 363 QTc: 425 Interpretive Statements SINUS RHYTHM POSSIBLE LEFT ATRIAL ENLARGEMENT [-0.1mV P-WAVE IN V1/V2] Compared to ECG 04/02/2025 09:39:48 No significant changes Electronically Signed On 04-03-2025 19:45:04 ICU CLERK by Pasha Lopez M.D. [id number] [id number]
[2025-04-02 11:47] VITALS: BP 120/68; PULSE 81; RESP 22; O2SAT 93
[2025-04-02 12:01] LABS: Troponin 5 2HR 9.16 ng/L (0-10); Troponin 5 2HR Delta 0.16 ABS# (0-10)
[2025-04-02 12:27] VITALS: BP 155/87; PULSE 81; O2SAT 95
== END 2025-04-02 12:30 | disposition home or self-care (01) ==
PROVIDERS: Emergency Provider Emergency Medicine; PCP Electrodiagnostic Medicine
DX: R07.9 Chest pain, unspecified (principal); Z87.891 Personal history of nicotine dependence; Z85.038 Personal history of other malignant neoplasm of large intestine; Z85.89 Personal history of malignant neoplasm of other organs and systems; Z85.048 Personal history of other malignant neoplasm of rectum, rectosigmoid junction, and anus; J44.9 Chronic obstructive pulmonary disease, unspecified
CPT/HCPCS: 36415; 71045; 80053; 83690; 83880; 84484; 85025; 93005; 96374; 96375; 99285; J2270; J2405; J9999

== ENCOUNTER 2025-04-06 10:12 | Outpatient (CLI) | payer MEDICARE, SELFPAY ==
[2025-04-06 11:57] LABS: Blood Urea Nitrogen 12 mg/dL (8-23); Calcium 8.6 mg/dL (8.5-10.5); Carbon Dioxide 25 mmol/L (22-29); Chloride 105 mmol/L (98-107); Glucose 100 mg/dL (65-115); Magnesium 2.0 mg/dL (1.7-2.3); NT Pro B Type Natriuretic Pept 355 pg/mL (0-125); Osmolality Calculated 290 mOsm/kg (285-295); Sodium 140 mmol/L (136-145)
[2025-04-06 12:04] LABS: Anion Gap 14.1 (5-19); Potassium 4.1 mmol/L (3.5-5.1)
== END 2025-04-06 10:13 | disposition home or self-care (01) ==
LOC: LAB 10:13
PROVIDERS: PCP Electrodiagnostic Medicine; Visit Provider Internal Medicine Cardiovascular Disease
DX: R06.09 Other forms of dyspnea (principal); R07.9 Chest pain, unspecified; I34.0 Nonrheumatic mitral (valve) insufficiency; E03.8 Other specified hypothyroidism; R06.02 Shortness of breath
CPT/HCPCS: 36415; 80048; 83735; 83880

== ENCOUNTER → 2025-04-23 11:21 | Outpatient (BNVA) | payer MEDICARE, SELFPAY | PROVIDERS: PCP Electrodiagnostic Medicine; Visit Provider Internal Medicine | DX: R91.1 Solitary pulmonary nodule (principal); J44.9 Chronic obstructive pulmonary disease, unspecified; Z87.891 Personal history of nicotine dependence; T78.40XA Allergy, unspecified, initial encounter; X58.XXXA Exposure to other specified factors, initial encounter | CPT/HCPCS: 36415; 85025; 86003; 99214; Q3014 ==

== ENCOUNTER 2025-04-30 09:36 | Outpatient (CLI) | payer MEDICARE, SELFPAY ==
--- NOTE | 2025-04-30 10:00 | CTR_ITS ---
PROCEDURE INFORMATION: Exam: CT Chest Without Contrast; Diagnostic Exam date and time: 04/30/2025 10:22 AM Age: 64 years old Clinical indication: Screening exam; Pre-operative exam; Other: Ion bronchoscopy; Prior surgery; Surgery date: 1-6 months; Surgery type: Port out; Additional info: Need prior to 05/11/25 procedure TECHNIQUE: Imaging protocol: Diagnostic computed tomography of the chest without contrast. Radiation optimization: All CT scans at this facility use at least one of these dose optimization techniques: automated exposure control; mA and/or kV adjustment per patient size (includes targeted exams where dose is matched to clinical indication); or iterative reconstruction. COMPARISON: PT PET skull to thigh INIT [id number] 03/20/2025 1:45 PM RADIATION DOSE METRICS: Total DLP (mGy-cm): 202.48 FINDINGS: Lungs: Irregularly marginated nodule right upper lobe 1 x 1 cm image 137 series 3. This is 1.5 cm oblique craniocaudal (image 246 series 6). Numerous additional pulmonary nodules are stable from prior, patient accounting representative nodule includes 4 mm right upper lobe image 129 series 3. Pleural spaces: Biapical pleural-parenchymal thickening, cqbpg-jfnsxjo-styz-left. This is similar to prior. Heart: Unremarkable. No cardiomegaly. No pericardial effusion. Coronary arteries: No significant coronary artery calcifications. Lymph nodes: No new or progressive lymphadenopathy. Vasculature: Calcification or vascular stone in the right lower lobe incidentally noted, unchanged. Mild atherosclerotic disease is evident. Intraperitoneal space: Visible portions of the upper abdomen show no acute abnormality. Bones/joints: Unremarkable. No acute fracture. Soft tissues: Unremarkable. CT/CT chest ION (PULM ONLY) [id number] IMPRESSION: 1. Redemonstrated right upper lobe solid irregular nodule. This is currently maximum 1 x 1 cm axial, 1.5 cm oblique craniocaudal. This is similar in size to PET-CT 03/20/2025. 2. Multiple additional pulmonary nodules similar to prior.
== END 2025-04-30 09:37 | disposition home or self-care (01) ==
LOC: RAD 09:43
PROVIDERS: PCP Electrodiagnostic Medicine; Visit Provider Internal Medicine
DX: R91.1 Solitary pulmonary nodule (principal); R91.8 Other nonspecific abnormal finding of lung field
CPT/HCPCS: 71250

== ENCOUNTER 2025-05-06 09:40 | Day surgery (SDC) | payer MEDICARE, SELFPAY ==
[2025-05-06] VITALS (21 sets, daily range): BP systolic 107–164; BP diastolic 55–89; PULSE 75–91; RESP 14–32; TEMP 36.6–37.1; O2SAT 93–99; BMI 26.8
--- NOTE | 2025-05-06 10:42 | P.ANESASSM_ITS ---
Pre-Anesthetic Assessment Height/Weight: Height 5 ft 6 in Weight 166 lb Preop Diagnosis: Long nodule Operation Date: 05/06/25 11:40 Proposed Procedures p Ion Robotic Assisted Bronchoscopy -Robotic Bronch with EBUS-(Not Applicable) - Natalia Pagan MD s Ebus(Not Applicable) - MD jane Plaza Bronchoscopy(Not Applicable) - Natalia Pagan MD Was Beta Kavon taken within 24 hours: N/A Was Clonidine taken within 24 hours: N/A Last intake: Intake Last Liquid Date 05/05/25 Last Liquid Time 20:00 Last Solid Date 05/05/25 Last Solid Time 16:30 Social No alcohol and No tobacco Quit smoking years ago Exam alert, oriented x 3, clear to auscultation bilaterally and regular rate & rhythm Airway Submandibular: within normal limits Cervical ROM: within normal limits Mallampati: Class III Comments: Comments: Edentulous Anesthetic Plan ASA status: 3 Anesthesia: General Other: No prior issues with anesthesia NPO since yesterday evening History of GERD on Protonix COPD, ex-smoker. No home O2 Asthma Right upper lobe lung nodule seen on CT Patient reports persistent SOB even with inhaler use Echo 01/27/2025 showing EF of 66% Plan for GETA Medications/Allergies Home Medications ?Medication ?Instructions ?Recorded ?Confirmed ?Last Taken ?Type albuterol sulfate 90 mcg/actuation 2 puff inhalation Q 6H PRN 11/20/19 05/05/25 05/05/25 Rx aerosol inhaler (ProAir HFA) shortness of breath or wh eezing 30 days #18 grams estradiol 1 mg tablet 1 mg PO TID 90 days #270 tab s 03/01/21 05/05/25 05/05/25 Rx lorazepam 1 mg tablet 1 mg PO TID PRN anxiety 30 d ays 03/21/21 05/05/25 05/06/25 Rx #90 tabs pantoprazole 40 mg tablet,delayed See Rx Instructions .Route 03/28/21 05/05/25 05/05/25 Rx release .COMPLEX #90 tabs fluticasone propionate 50 See Rx Instructions .Route 0 06/14/21 05/05/25 05/05/25 Rx mcg/actuation nasal .COMPLEX #16 grams spray,suspension zolpidem 10 mg tablet 10 mg PO DAILY 06/17/2104/2005/05/25 History cyanocobalamin (vitamin B-12) 5,000 mcg sublingual LATOSHA LY 10/06/22 05/05/25 05/05/25 History 5,000 mcg sublingual tablet (Vitamin B-12) tiotropium bromide 2.5 2 puff inhalation QAM #4 gra ms 03/24/25 05/05/25 05/06/25 Rx mcg/actuation mist for inhalation (Spiriva Respimat) sertraline 100 mg tablet 100 mg PO DAILY 04/23/2505/05/25 History alpha lipoic acid 600 mg capsule 600 mg PO DAILY 05/0505/05/25 05/05/25 History budesonide-formoterol HFA 160 2 puff inhalation BID 05/05/25 05/06/25 History mcg-4.5 mcg/actuation aerosol inhaler (Breyna) Allergies Allergy/AdvReac Type Severity Reaction Status Date / Time cisplatin Allergy itching Verified 04/23/25 11:34 ketorolac (From Toradol) Allergy ADR-Anxiety Verified 04/23/25 11:34 [facility] Anesthesia Medical History Lung nodule COPD (chronic obstructive pulmonary disease) History of colon cancer History of cancer of vagina GERD without esophagitis Glossitis 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 Rectal cancer History of small bowel obstruction Hypoestrogenism Hypothalamic hypothyroidism Insomnia disorder Generalized anxiety disorder Depression Surgical History History of surgery on left wrist carpel tunnel along with trigger finger and trigger thumb History of hysterectomy complete--1993 History of removal of Port-a-Cath (03/29/20) History of rectal surgery APR, with pelvic exenteration for recurrence with rectus flap Colostomy in place H/O hernia repair parastomal Port-A-Cath in place Family History Grandmother Breast cancer Maternal-breast Father Cancer prostate that spread to bones Sister Cancer brain cancer and lung Mother Chronic kidney disease (CKD) Diabetes Brother Cancer liver Diabetes Grandfather Cancer Maternal--prostate and lung Denies family history of CAD (coronary artery disease) Clotting disorder Hyperlipidemia Bleeding disorder Hypertension Stroke Social History Smoking and tobacco/nicotine status: former use of tobacco/nicotine (1 ppd X 22 Years Quit 1994) Alcohol intake: current Alcohol intake frequency: holidays/special occasions only Substance/Drug Use: never Household members: spouse Marital status: Current occupational status: disabled Data Anesthesia 05/06/25 10:30 Cardiac Studies: 2 Echocardiogram 01/27/25 Sestamibi Stress Test (Cardiology) 04/01
[2025-05-06 10:54] LABS: Hematocrit 37.4 % (36-47); Hemoglobin 12.60 g/dL (11.27-16.99); Mean Corpuscular HGB Conc 33.7 g/dL (30-55); Mean Corpuscular Hemoglobin 30.9 pg (27-33); Mean Corpuscular Volume 91.7 fl (85-98); Nucleated Red Blood Cells % 0 %; Platelet Count 243 10^3/cmm (157-399); Red Blood Count 4.08 10^6/uL (3.85-5.65); White Blood Count 6.81 10^3/uL (3.29-11.43)
[2025-05-06 11:07] LABS: INR 0.89 (0.8-1.2); Prothrombin Time 12.70 SECONDS (12.1-14.9)
--- NOTE | 2025-05-06 11:11 | P.HPUD_ITS ---
Surgery/Procedure H&P Update DATE OF PROCEDURE: May 06, 2025 DATE H&P PERFORMED: 04/23/25 H&P UPDATE INFORMATION: I have reviewed H&P completed within last 30 days, I have examined patient prior to procedure, No changes to prior documentation, Changes to prior documentation as noted here, H&P is in [facility] EMR on date indicated and Risks and benefits of the procedure reviewed PLANNED PROCEDURE: Surgery/Procedure H&P Update DATE OF PROCEDURE: 05/06/25 DATE H&P PERFORMED: 04/23/25 CHANGES TO PREVIOUS DOCUMENTATION: Patient was seen and examined. No significant changes since I saw in the clinic. We will proceed with bronchoscopy as we planned. PREOP DIAGNOSIS: Lung nodule right upper lobe PRIMARY INDICATION FOR PROCEDURE: Lung nodule right upper lobe rule out malignancy PLANNED PROCEDURE: Operation Date: 05/06/25 11 40 am Proposed Procedures Ion Robotic Assisted Bronchoscopy for lung nodule POSSIBLE Biopsy 37569, 23025, 49195, 38032, 84749, 198.4 - Natalia Pagan MD Operation Date: 03/11/25 09:00 Proposed Procedures p Bronchoscopy 30934 27549 14216 96992 44954 39095 96438 62826 R91. - Natalia Pagan MD s Ion Robotic Assisted Bronchoscopy - Natalia Pagan MD s Ebus - Natalia Pagan MD Operation Date: 05/06/25 11:40 Proposed Procedures p Ion Robotic Assisted Bronchoscopy -Robotic Bronch with EBUS-(Not Applicable) - Natalia Pagan MD s Ebus(Not Applicable) - Natalia Pagan MD s Bronchoscopy(Not Applicable) - Natalia Pagan MD
--- NOTE | 2025-05-06 11:20 | SC_ITS ---
WS: [id number] C-arm fluoroscopy for right upper lobe bronchoscopic biopsy, 05/06/2025 Clinical Data: ion in or3 Comparison: CT chest, 03/11/2025 Findings: Dr. Pagan performed a right upper lobe bronchoscopic biopsy. SC/C-arm FL for Bronchoscopy Impression: Right upper lobe bronchoscopic biopsy.
--- NOTE | 2025-05-06 13:21 | XR_ITS ---
WS: [email or web address] Portable AP upright chest, 05/06/2025 Clinical Data: POST ION IN PACU Comparison: Portable chest, 04/02/2025 Findings: No nodules, masses or effusions are seen. The heart is normal. The pulmonary vascularity is not increased. No pneumonia or pneumothorax is seen. No post bronchoscopic biopsy abnormalities are seen. There are monitor leads on the chest wall. XR/XR chest 1V portable [id number] Impression: Negative chest.
[2025-05-06] MEDS: EPINEPHrine 1 MG in sodium chloride 0.9% (100 ml) 19 ML 8 MG XX (13:24)
--- NOTE | 2025-05-06 13:28 | W.PM.BPONFUL ---
Procedure: Flexible bronchoscopy with complete mediastinal staging Attending: Natalia Pagan MD Indication: Right upper lobe nodule Anesthesia: General anesthesia per anesthesia team Procedure: Pre-Anesthesia Assessment Time-Out: Immediately before the procedure, a time-out was conducted to confirm patient identification, procedure details, consent, image labeling, and the need for prophylactic antibiotics. This was verified by the physician, nurse, anesthesiologist, and heel washer stringing machine operator. Outcome: The procedure was completed without difficulty, and the patient tolerated it well. Findings: A thorough airway exam was performed after passage of the bronchoscope. The trachea was anatomically normal. The right sided airway was anatomically normal without endobronchial lesions. Some secretions. Airway wall was noted to be very friable and easy to bleed. The left sided airway was anatomically normal without endobronchial lesions. Some secretions. Airway wall was noted to be very friable and easy to bleed. After confirming our location, we proceeded to sampling. Prior to sampling, confirmation of lesion location was done using: Fluroscopy with a tool overlying the lesion on at least one visual plane. The prior bronchoscope was removed from the airway. The [employer] Robotic Bronchoscopy platform was moved into place. The robotic bronchoscope was inserted into the endotracheal tube with care. The position of the bronchoscope was registered to a pre-existing CT scan using shape-sensing virtual bronchoscopy technology (19975). We navigated towards the lesion in the right upper nodule using a pre-planned route using virtual bronchoscopy Prior to sampling, confirmation of lesion location was done using: - Radial ultrasound probe with a concentric view (23266), - Fluroscopy with a tool overlying the lesion on at least one visual plane. - Virtual target located directly within the path of intended biopsy direction on EMN. Transbronchial biopsies of the lesion were performed using the core dx forceps. A total of 6 samples were obtained. (22574) Bronchoscopy with transbronchial needle aspiration biopsy, using floroscopy were performed. Total of 5 samples obtained. (24873) A bronchoalveolar lavage was performed of the lobe containing the target lesion with 65mL of saline instilled and 20 mL of effluent returned. Additional rinse from the bronchoscope lumen was added to the sample after removal of the scope. (46087) The prior bronchoscope was removed from the airway and the EBUS scope was inserted. A complete curvilinear EBUS procedure was performed of the following lymph nodes: Level 11R station was identified. No nodes met size criteria for biopsy. Level 10R station was identified. No nodes met size criteria for biopsy. Level 4R station was identified. No nodes met size criteria for biopsy. Level 7 station was identified with the EBUS scope at the medial LMSB/RMSB and 4 passes were made using a 21G Olympus TBNA needle. Level 4L station was identified. No nodes met size criteria for biopsy. Level 10L station was identified. No nodes met size criteria for biopsy. Level 11L station was identified. No nodes met size criteria for biopsy. Following completion of all diagnostic and therapeutic procedures, hemostasis was verified. The scope was removed and procedure concluded. In summary, the following procedures were performed: bronchoscope was registered to a pre-existing CT scan using shape-sensing virtual bronchoscopy technology (22239). 74143 BAL, (Bronchoalveolar Lavage), 99591 TBBX, (Transbronchial biopsies, first lobe), 22154 Bronchoscopy with transbronchial needle aspiration biopsy (TBNA) (first lobe) 70787 cEBUS 1-2 lesions, (Central curvelinear EBUS 1-2 lesions) Natalia Pagan MD Pulmonary and Critical Care
[2025-05-06] MEDS: ondansetron 2 mg/ML SDV 2 mL 4 MG IVP ×2 (13:37→13:52)
--- NOTE | 2025-05-06 14:25 | XR_ITS ---
WS: [email or web address] KUB, AP view, 05/06/2025 Clinical Data: post op abdominal pain Comparison: Upright abdomen, 05/02/2018 Findings: No abnormal intraabdominal masses or calcifications are seen. There is no dilatated small bowel or evidence of obstruction. There are surgical clips in the central abdomen. Monitor leads overlie the central abdomen. There is a left hip arthroplasty. XR/XR KUB portable [id number] Impression: Negative KUB.
--- NOTE | 2025-05-06 14:25 | PC.NURSE ---
1345 - Dr Ordaz at pts side in pacu - pt states she does not feel well - complaining of nausea - states she feels like this often at home - 1426 - no real change in pts condition - new orders placed per Dr Wall
--- NOTE | 2025-05-06 14:38 | PC.NURSE ---
1438 - KUB in progress in pacu
--- NOTE | 2025-05-06 14:49 | PC.NURSE ---
1446 - family updated on plan per Dr Ordaz - per pt request - pt moved to Phase 2 to be with family - pt continues to complain of pain with abd distended and slightly firm
[2025-05-06 15:05] LABS: Eosinophils % Bronch 0.00 % (0.13-0.25); Lymphocytes % Bronch 0.00 % (10.71-12.91); Macrophages % Bronch 0.00 % (83.6-86.8); Neutrophils % Bronch 0.00 % (0.9-2.3)
[2025-05-06 15:06] LABS: Bronch Source Right Upper Lobe; Other Cells, Bronch Wash 100 %
[2025-05-06 15:07] LABS: Apprearance, Bronch Wash Clear (CLEAR); Color, Bronc Wash Colorless; Total Cells Counted Bronch 33
[2025-05-06 15:15] LABS: Cyto Order Verification No Order
--- NOTE | 2025-05-06 16:11 | PC.NURSE ---
9994 updated pt and family with radiology report. Patient's pain and nausea are now under control. Pt vital signs have remained within normal limits.
[2025-05-08 14:16] LABS: P. Jirovecii DNA QL PCR Not Detected (Not Detected); P. Jirovecii DNA QL PCR Source RUL BAL
[2025-05-08 21:35] LABS: Aspergillus Source Other; Aspergillus Supp Not Detected (Not Detected); Aspergillus Terreus DNA Not Detected (Not Detected)
== END 2025-05-06 16:00 | disposition home or self-care (01) ==
PROVIDERS: PCP Electrodiagnostic Medicine; Visit Provider Internal Medicine
PROC: 0BJ08ZZ Inspection of Tracheobronchial Tree, Via Natural or Artificial Opening Endoscopic (ICD-10-PCS; CPT 31622; principal; 2025-05-06 11:30)
PROC: BB4BZZZ Ultrasonography of Pleura (ICD-10-PCS; 2025-05-06 11:30)
PROC: 0BJ08ZZ Inspection of Tracheobronchial Tree, Via Natural or Artificial Opening Endoscopic (ICD-10-PCS; CPT 31622; 2025-05-06 11:30)
DX: R91.8 Other nonspecific abnormal finding of lung field (principal); K21.9 Gastro-esophageal reflux disease without esophagitis; J44.9 Chronic obstructive pulmonary disease, unspecified; Z85.038 Personal history of other malignant neoplasm of large intestine; Z85.89 Personal history of malignant neoplasm of other organs and systems; Z85.048 Personal history of other malignant neoplasm of rectum, rectosigmoid junction, and anus; F41.8 Other specified anxiety disorders; E03.8 Other specified hypothyroidism; Z80.3 Family history of malignant neoplasm of breast; Z80.42 Family history of malignant neoplasm of prostate; Z80.8 Family history of malignant neoplasm of other organs or systems; Z80.1 Family history of malignant neoplasm of trachea, bronchus and lung; Z87.891 Personal history of nicotine dependence
CPT/HCPCS: 31624; 31628; 31629; 31652; 36415; 71045; 74018; 76000; 85025; 85610; 86606; 87015; 87070; 87102; 87116; 87205; 87206; 87252; 87385; 87449; 87798; 87801; 88112; 88305; 89050; A9270; J0169; J1100; J2405; J2704; J3010; J3490; J7030; J9999